=== PATIENT | male | born 1955 | race Caucasian/White ===

== ENCOUNTER 2016-12-18 07:37 | Observation (INO) | payer MEDICAID ==
[~2016-12-18 07:37] MED LIST: Buffered Lidocaine 1% SYRIN* 5 ML/SYR SYRINGE INTRADERM ONE; Buffered Lidocaine 1% SYRIN* 5 ML/SYR SYRINGE ONE; Dexamethasone IV* 4 MG/ML 1 ML (4 MG) IV SLOW PU ONE; Dexamethasone IV* 4 MG/ML 1 ML (4 MG) ONE; Famotidine IV* 10 MG/ML 2 ML (20 mg) IV ONE; Famotidine IV* 10 MG/ML 2 ML (20 mg) ONE; ceFAZolin 2 GM PREMIX(*) 2 GM/50 ML BAG IVPB ONE
[2016-12-18] MEDS ORDERED: Lidocain 1% EPI 1:100,000 * 30 ML MDV ONE (10:32)
[2016-12-18] MEDS ORDERED: Bacitracin IV* 50,000 UNITS INJ ONE (10:33)
[2016-12-18] MEDS ORDERED: Thrombin 5,000 UNITS* 1 APPLIC KIT - topical use - TOPICAL ONE (10:33)
[2016-12-18] MEDS ORDERED: KETAMINE HCL* 50 MG/ML 10 ML VIAL ONE (10:43)
[2016-12-18] MEDS ORDERED: Lidocaine 1% INJ* 10 MG/ML 30 ML SDV ONE (10:43)
[2016-12-18] MEDS ORDERED: Propofol* 10 MG/ML 20 ML BTL IV PUSH ONE (10:45)
[2016-12-18] MEDS ORDERED: Ondansetron INJ* 2 MG/ML VIAL ONE (10:45)
[2016-12-18] MEDS ORDERED: Midazolam* 1 MG/ML 2 ML VIAL (2 MG) ONE (10:45)
[2016-12-18] MEDS ORDERED: fentaNYL* 50 MCG/ML 2 ML VIAL (100 MCG VIAL) ONE ×5 (10:45→14:55)
[2016-12-18] MEDS ORDERED: Ketorolac INJ* 30 MG/ML 1 ML VIAL ONE (10:45)
[2016-12-18] MEDS ORDERED: Succinylcholine* 20 MG/ML 10 ML VIAL ONE (10:45)
[2016-12-18] MEDS ORDERED: DiMENhydriNATE IV* 50 MG/ML VIAL IV PUSH PRN (12:18)
[2016-12-18] MEDS ORDERED: HYDROmorphone* 1 MG/ML 1 ML SYR IV PRN (12:18)
--- NOTE | 2016-12-18 12:23 | RAD ---
HISTORY: Localization for anterior cervical discectomy and fusion COMPARISONS: MRI dated November 30, 2016 VIEWS: Single portable intraoperative view of the cervical spine performed for localization for spinal surgery FINDINGS: A single lateral view the comanche spine at 10:37 AM demonstrates a metallic needle within the intervertebral disc space at C4-C5, counting from C2. IMPRESSION: LIMITED PORTABLE VIEW OF THE CERVICAL SPINE FOR LOCALIZATION DURING SPINAL SURGERY
[2016-12-18] MEDS ORDERED: HYDROcodone/ACETAMIN 5-325 MG* 1 TAB PO PRN (12:58)
[2016-12-18] MEDS ORDERED: Ondansetron INJ* 2 MG/ML VIAL IV PRN (12:58)
[2016-12-18] MEDS ORDERED: Acetaminophen TAB* 325 MG PO PRN (12:58)
[2016-12-18] MEDS ORDERED: Mouth Piece, Nicotine* 1 EACH CARTRIDGE INH PRN (13:24)
[2016-12-18] MEDS ORDERED: Nicotine Inhaler* 10 MG AMP INH PRN (13:24)
[2016-12-18] MEDS ORDERED: Benzocaine/Menthol LOZ* 1 LOZENGE PO PRN (13:25)
[2016-12-18] MEDS: fentaNYL* 50 MCG/ML 2 ML VIAL (100 MCG VIAL) IV PRN ×5 (13:29→14:56)
[2016-12-18] MEDS ORDERED: Labetalol IV* 5 MG/ML 20 ML VIAL ONE (14:25)
[2016-12-18] MEDS: Labetalol IV* 5 MG/ML 20 ML VIAL IV PUSH PRN ×2 (14:27→15:04)
[2016-12-18] MEDS ORDERED: HYDROmorphone* 1 MG/ML 1 ML SYR ONE (15:41)
[2016-12-18] MEDS: Nicotine PATCH 21 MG/24 HR* PATCH TRANSDERM SCH (17:30)
[2016-12-18] MEDS: Nicotine GUM* 2 MG PO PRN (17:36)
[2016-12-18] MEDS ORDERED: risperiDONE TAB* 1 MG PO SCH (18:00)
[2016-12-18] MEDS ORDERED: SAW PALMETTO PO SCH (18:00)
[2016-12-18] MEDS ORDERED: Lisinopril TAB* 10 MG PO SCH (18:00)
[2016-12-18] MEDS ORDERED: Famotidine TAB* 20 MG PO SCH (18:00)
[2016-12-18] MEDS ORDERED: Metoprolol Succinate XL TAB* 100 MG PO SCH (18:00)
[2016-12-18] MEDS ORDERED: oxyCODONE TAB* 5 MG TAB PO PRN (19:01)
[2016-12-18] MEDS: Cyclobenzaprine TAB* 10 MG PO SCH (20:16)
[2016-12-18] MEDS ORDERED: Nicotine Patch Removal NOTE PATCH OFF SCH (21:00)
[2016-12-18] MEDS ORDERED: Gabapentin CAP(*) 300 MG PO SCH (21:00)
--- NOTE | 2016-12-19 00:06 | OP ---
OPERATIVE REPORT: DATE OF OPERATION: 12/18/16 DATE OF : 55 SURGEON: Dr. Rock Gamble. GOLD STAMPER: KOLBY Thornton ANESTHESIA: General. PRE-OP DIAGNOSIS: Herniated nucleus pulposus, C5-6 on the right. POST-OP DIAGNOSIS: Herniated nucleus pulposus, C5-6 on the right. OPERATIVE PROCEDURE: Anterior cervical diskectomy and fusion, C5-6 with anterior instrumentation. DESCRIPTION OF PROCEDURE: After satisfactory general anesthesia was obtained, the patient was place d on the operating table in a supine position with the head supported on a horseshoe headrest and th e neck slightly extended. The anterior aspect of the cervical spine was then clipped, prepped, and draped in a sterile manner for anterior cervical exposure and a skin incision began at the midline e xtending to the right side distance of 3 cm. This incision was infiltrated with 1% Xylocaine with e pinephrine after which it was turned down sharply to the subcutaneous tissues. A superior and infer iorly based subcutaneous flap was then fashioned and the platysma was also divided along the directi on of its fibers. A dissecting plane was developed between the sternocleidomastoid and strap muscle s and carried to the anterior aspect of the spine. An intraoperative x-ray was obtained verifying l ocalization of the C4-5 level. Additional inferior exposure was obtained until the C5-6 level was i dentified. There was noted to be prominent anterior spurring at both the C5 and C6 levels. After d rilling down the anterior spurs, the anterior two-thirds of disk material was removed using a combin ation of angled curettes, the drill and pituitary rongeurs. Russell distractor pins were then placed in the C5 and C6 vertebral bodies and gentle disk space distraction applied. The operating micros ope was then brought into the field and the remainder of the procedure was done under microscopic vi sualization. Projecting back posteriorly towards the right neural foramen was a spur, which was dec ompressed with the 1 and 2 mm Kerrison rongeurs. Upon palpating the foramen, a very significant lar ge piece of freely extruded disk material was also removed. The dissection was carried back until th e normal dura was encountered. At the conclusion of the decompression, a nerve hook got readily wit h both C6 nerve roots. The interspace was then prepared for receipt of a 9 mm PEEK cage filled with bony matrix and slightly countersunk. A Medtronic Zevo anterior cervical plate was then selected an d secured into position with an 11 mm self drilling screws into the C5 and C6 vertebral bodies. Due to the patient's body habitus, a post construct x-ray was not obtained. The wound was then thoroug hly irrigated and after assuring adequate hemostasis, a drain was placed in the prevertebral space a nd tunneled out towards the right side. The subcutaneous tissues were then reapproximated with 3-0 Vicryl suture and the skin closed with Steri-Strips. The estimated blood loss was less than 50 cc, and the final sponge, padding, and needle counts were correct. The patient was taken to the recovery room extubated and in stable condition. [id number]/[facility] #: [id number]
[2016-12-19] MEDS: Nicotine GUM* 2 MG PO PRN (05:44)
[2016-12-19] MEDS: Nicotine PATCH 21 MG/24 HR* PATCH TRANSDERM SCH (07:46)
--- NOTE | 2016-12-19 07:53 | PN ---
Progress Note - Progress Note SOAP: Subjective: [This is a 61 year old male s/p ACD F C5-6 for HNP, POD #1. He is eating and drinking without difficulty. He is ambulating independently. Pre-operative symptoms are improving. He denies headache, sore throat, nausea, chest pain and difficulty breathing. Pain is well controlled with PO medications. ] Objective: [ Vital Signs: Temp Pulse Resp BP Pulse Ox 98.0 F 80 17 150/82 97 12/19/16 03:49 12/19/16 03:49 12/19/16 05:44 12/19/16 03:49 12/19/16 03:49 General: Alert and oriented. No distress. Neuro: Motor and sensory intact. Incision: Intact with steri-strips in place. TUTU drain removed today. Extremities: Full ROM.] Assessment: [Satisfactory post-op course. ] Plan: [1. Discharge home today. 2. Discharge instructions discussed with the patient. ]
[2016-12-19 08:06] VITALS: BP 151/84
[2016-12-19] MEDS: Cyclobenzaprine TAB* 10 MG PO SCH (08:53)
[2016-12-19] MEDS ORDERED: amLODIPine TAB* 5 MG PO SCH (09:00)
--- NOTE | 2016-12-19 09:02 | RAD ---
Indication: Neck pain, postoperative fusion. CT of the cervical spine was obtained in the axial plane. Sagittal and coronal reconstructed images were obtained. The mastoid air cells are well aerated. No evidence of abnormal fluid is noted. The C1 ring is intact. Degenerative changes of the atlantoaxial joint are noted. There is fusion of C5 to C6 with an anterior plate and screws. Bone graft is in place. Spinal canal appears to be intact. Osteophyte is noted at C5-6, asymmetric towards the right resulting in right foraminal stenosis. At C6-7, mild bilateral uncovertebral joint hypertrophy is noted. There is straightening of the normal lordosis. No compression fracture. IMPRESSION: Fusion and anterior fixation of C5-6 with soft tissue swelling. Internal fixation with anterior plate and screws is noted. Spinal canal appears to be intact.
== END 2016-12-19 09:45 | disposition home or self-care (01) ==
LOC: OR 07:37 → SSU 12:59
PROVIDERS: ADMIT Neurological Surgery; ATTEND Neurological Surgery
PROC: 0RG10A0 Fusion of Cervical Vertebral Joint with Interbody Fusion Device, Anterior Approach, Anterior Column, Open Approach (ICD-10-PCS; 2016-12-18)
PROC: 0RB30ZZ Excision of Cervical Vertebral Disc, Open Approach (ICD-10-PCS; principal; 2016-12-18 09:15)
DX: M50.122 Cervical disc disorder at C5-C6 level with radiculopathy (principal); I10 Essential (primary) hypertension; F17.210 Nicotine dependence, cigarettes, uncomplicated; G40.909 Epilepsy, unspecified, not intractable, without status epilepticus; F32.9 Major depressive disorder, single episode, unspecified; F41.9 Anxiety disorder, unspecified; Z86.718 Personal history of other venous thrombosis and embolism
CPT/HCPCS: 72020; 72125; 87641; 96374; 96375; A9270-GY; G0378; J0330; J0690; J1100; J1170; J1885; J2001; J2250; J2405; J2704; J3010

== ENCOUNTER 2017-03-12 06:07 | Inpatient (IN) | payer MEDICAID, OTHER ==
[~2017-03-12 06:07] MED LIST changes: +Buffered Lidocaine 0.9% SYRIN* 5 ML/SYR SYRINGE INTRADERM ONE; -Buffered Lidocaine 1% SYRIN* 5 ML/SYR SYRINGE INTRADERM ONE; -Buffered Lidocaine 1% SYRIN* 5 ML/SYR SYRINGE ONE; -Dexamethasone IV* 4 MG/ML 1 ML (4 MG) IV SLOW PU ONE; -Dexamethasone IV* 4 MG/ML 1 ML (4 MG) ONE; -Famotidine IV* 10 MG/ML 2 ML (20 mg) IV ONE; -Famotidine IV* 10 MG/ML 2 ML (20 mg) ONE; -ceFAZolin 2 GM PREMIX(*) 2 GM/50 ML BAG IVPB ONE
[2017-03-12] MEDS ORDERED: Buffered Lidocaine 0.9% SYRIN* 5 ML/SYR SYRINGE ONE (06:13)
[2017-03-12] MEDS ORDERED: ceFAZolin 2 GM PREMIX (*) 50 ML IVPB ONE (06:13)
[2017-03-12] MEDS ORDERED: Thrombin 5,000 UNITS* 1 APPLIC KIT - topical use - TOPICAL ONE (07:07)
[2017-03-12] MEDS ORDERED: Lidocaine 1.5% EPI 1:200,000* 30 ML SDV ONE (07:07)
[2017-03-12] MEDS ORDERED: Bacitracin IV* 50,000 UNITS INJ ONE (07:07)
[2017-03-12] MEDS ORDERED: fentaNYL* 50 MCG/ML 2 ML VIAL (100 MCG VIAL) ONE (07:27)
[2017-03-12] MEDS ORDERED: Midazolam* 1 MG/ML 2 ML VIAL (2 MG) ONE (07:27)
[2017-03-12] MEDS ORDERED: Succinylcholine* 20 MG/ML 10 ML VIAL ONE (07:50)
[2017-03-12] MEDS ORDERED: Cisatracurium* 2 MG/ML MDV 5 ML ONE (07:50)
[2017-03-12] MEDS ORDERED: Ondansetron INJ* 2 MG/ML VIAL ONE (07:50)
[2017-03-12] MEDS ORDERED: Propofol* 10 MG/ML 20 ML BTL IV PUSH ONE (07:50)
[2017-03-12] MEDS ORDERED: Lidocaine 2% PF * 5 ML VIAL ONE (07:50)
[2017-03-12] MEDS ORDERED: Dexamethasone IV* 4 MG/ML 1 ML (4 MG) ONE (07:50)
[2017-03-12] MEDS ORDERED: Famotidine IV* 10 MG/ML 2 ML (20 mg) ONE (07:50)
[2017-03-12] MEDS ORDERED: HYDROmorphone* 1 MG/ML 1 ML SYR ONE (08:26)
[2017-03-12] MEDS ORDERED: Ondansetron INJ* 2 MG/ML VIAL IV PRN ×2 (08:36→09:24)
[2017-03-12] MEDS ORDERED: Acetaminophen TAB* 325 MG PO PRN ×2 (08:36→09:24)
[2017-03-12] MEDS ORDERED: PROCHLORPERAZINE INJ 5 MG/ML 2 ML VIAL IV PRN (08:36)
[2017-03-12] MEDS ORDERED: fentaNYL* 50 MCG/ML 2 ML VIAL (100 MCG VIAL) IV PRN (08:36)
[2017-03-12] MEDS ORDERED: HYDROmorphone* 1 MG/ML 1 ML SYR IV PRN (08:36)
[2017-03-12] MEDS ORDERED: HYDROcodone/ACETAMIN 5-325 MG* 1 TAB PO PRN (08:36)
[2017-03-12] MEDS ORDERED: Nicotine GUM* 2 MG PO PRN (09:44)
[2017-03-12] MEDS ORDERED: HYDROcodone/ACETAMIN 5-325 MG* 1 TAB ONE (10:04)
[2017-03-12] MEDS: HYDROcodone/ACETAMIN 5-325 MG* 1 TAB PO PRN ×2 (10:05→13:55)
--- NOTE | 2017-03-12 10:50 | RAD ---
HISTORY: Decompressive lumbar laminectomy COMPARISONS: None relevant VIEWS: 1 , portable intraoperative view of the lumbar spine for the 8:30 AM FINDINGS: A single portable crosstable intraoperative view of lumbar spine performed at 8:30 AM demonstrates a metallic probe opposite of L3-L4 counting from L5 as the last lumbar type vertebral body IMPRESSION: LIMITED PORTABLE VIEW OF THE SPINE FOR LOCALIZATION DURING SPINAL SURGERY
[2017-03-12] MEDS: oxyCODONE TAB* 5 MG TAB PO PRN ×2 (17:24→23:47)
[2017-03-12] MEDS: Lisinopril TAB* 10 MG PO SCH (17:25)
[2017-03-12] MEDS: Famotidine TAB* 20 MG PO SCH (17:25)
[2017-03-12] MEDS: amLODIPine TAB* 5 MG PO SCH (17:25)
[2017-03-12] MEDS: risperiDONE TAB* 1 MG PO SCH (17:25)
[2017-03-12] MEDS: Metoprolol Succinate XL TAB* 100 MG PO SCH (17:25)
[2017-03-12] MEDS: Cyclobenzaprine TAB* 10 MG PO SCH (20:33)
[2017-03-12] MEDS: SAW PALMETTO PO SCH (20:34)
[2017-03-12] MEDS ORDERED: Gabapentin CAP(*) 400 MG PO SCH (21:00)
[2017-03-12] MEDS ORDERED: Gabapentin CAP(*) 100 MG PO SCH ×2 (21:00)
[2017-03-13] MEDS: oxyCODONE TAB* 5 MG TAB PO PRN ×5 (03:51→19:59)
[2017-03-13] MEDS: Nicotine Patch Removal NOTE FOLLOW UP SCH (06:11)
--- NOTE | 2017-03-13 08:07 | PN ---
Progress Note - Progress Note Date of Service: 03/13/17 SOAP: Subjective: [This is a 61 year old male s/p decompressive lumbar laminectomy L3-4 and L4-5, POD #1. He complains of pain in the low back and persistent numbness of the feet since pre-op. Denies headache. He is eating without difficulty. He is ambulating with assistance of his cane. ] Objective: [ Vital Signs: Temp Pulse Resp BP Pulse Ox 98.2 F 82 16 138/64 99 03/13/17 03:22 03/13/17 03:22 03/13/17 05:51 03/13/17 03:22 03/13/17 03:22 General: Alert and oriented. No distress. Neuro: Motor and sensory intact. Incision: Intact with marlin, no infection. TUTU in place. Extremities: Full ROM TUTU drain output 03/12/17 03/12/17 03/12/17 10:00 11:18 13:54 Output, TUTU #1 50 70 70 03/12/17 03/12/17 03/13/17 18:00 22:00 02:15 Output, TUTU #1 50 35 50 03/13/17 06:00 Output, TUTU #1 30 ] Assessment: [Satisfactory post-op course. TUTU drain continues to collect significant fluid volume and will therefore remain in place for continued monitoring.] Plan: [1. Admit to inpatient. 2. Continue TUTU drain monitoring. 3. Continue pain management.]
[2017-03-13] MEDS: Cyclobenzaprine TAB* 10 MG PO SCH ×2 (08:49→20:12)
[2017-03-13] MEDS: Nicotine PATCH 21 MG/24 HR* PATCH TRANSDERM SCH (09:12)
[2017-03-13] MEDS ORDERED: NICOTINE GUM 2 MG PO PRN (09:16)
[2017-03-13] MEDS: NICOTINE GUM 4 MG PO PRN ×2 (09:38→15:50)
[2017-03-13] MEDS ORDERED: Gabapentin CAP(*) 300 MG PO ONE ×2 (10:00→18:30)
[2017-03-13] MEDS: Metoprolol Succinate XL TAB* 100 MG PO SCH (18:26)
[2017-03-13] MEDS: amLODIPine TAB* 5 MG PO SCH (18:26)
[2017-03-13] MEDS: Lisinopril TAB* 10 MG PO SCH (18:26)
[2017-03-13] MEDS: Famotidine TAB* 20 MG PO SCH (18:26)
[2017-03-13] MEDS: risperiDONE TAB* 1 MG PO SCH (18:26)
[2017-03-13] MEDS: SAW PALMETTO PO SCH (18:27)
[2017-03-13] MEDS ORDERED: Gabapentin CAP(*) 400 MG PO SCH (18:30)
[2017-03-14] MEDS: oxyCODONE TAB* 5 MG TAB PO PRN ×2 (00:05→08:24)
[2017-03-14] MEDS: Nicotine Patch Removal NOTE FOLLOW UP SCH (05:52)
[2017-03-14] MEDS: Nicotine PATCH 21 MG/24 HR* PATCH TRANSDERM SCH (08:21)
[2017-03-14 08:23] VITALS: BP 129/58
[2017-03-14] MEDS: NICOTINE GUM 4 MG PO PRN (08:24)
[2017-03-14] MEDS: Cyclobenzaprine TAB* 10 MG PO SCH (08:24)
--- NOTE | 2017-03-14 09:21 | PN ---
Progress Note - Progress Note Date of Service: 03/14/17 SOAP: Subjective: [S/p decompressive lumbar laminectomy L3-4 and L4-5, POD #2. Complains of low back soreness although pain well controlled with PO medication. Ambulating with cane. Denies headache.] Objective: [ Vital Signs: Temp Pulse Resp BP Pulse Ox 97.3 F 65 18 129/58 97 03/14/17 07:46 03/14/17 07:46 03/14/17 08:24 03/14/17 07:46 03/14/17 07:46 General: Alert and oriented. No distress Neuro: Motor and sensory intact. Extremities: Full ROM. TUTU drain output 03/12/17 03/12/17 03/12/17 10:00 11:18 13:54 Output, TUTU #1 50 70 70 03/12/17 03/12/17 03/13/17 18:00 22:00 02:15 Output, TUTU #1 50 35 50 03/13/17 03/13/17 03/13/17 06:00 10:00 14:00 Output, TUTU #1 30 30 15 03/13/17 03/13/17 03/14/17 18:00 22:00 02:00 Output, TUTU #1 10 10 10 03/14/17 03/14/17 06:00 08:27 Output, TUTU #1 30 15 ] Assessment: [Satisfactory post-op course at this time. TUTU drain continues to collect fluid. Further monitoring is necessary. ] Plan: [1. Possible discharge home this afternoon. 2. Continue pain management. 3. Encourage ambulation.]
== END 2017-03-14 11:00 | disposition home or self-care (01) | DRG 320 ==
LOC: OR 06:07 → SSU 08:08 → OBSVTOIN 03-13 08:08
PROVIDERS: ADMIT Neurological Surgery; ATTEND Neurological Surgery
PROC: 01NB0ZZ Release Lumbar Nerve, Open Approach (ICD-10-PCS; principal; 2017-03-13)
DX: M48.06 Spinal stenosis, lumbar region (principal); I10 Essential (primary) hypertension; Z88.2 Allergy status to sulfonamides; Z88.8 Allergy status to other drugs, medicaments and biological substances; F17.200 Nicotine dependence, unspecified, uncomplicated; B19.20 Unspecified viral hepatitis C without hepatic coma; G89.29 Other chronic pain; K21.9 Gastro-esophageal reflux disease without esophagitis; G43.909 Migraine, unspecified, not intractable, without status migrainosus; Z86.718 Personal history of other venous thrombosis and embolism
CPT/HCPCS: 72100; A9270-GY; G0378; J0330; J0690; J1100; J1170; J2250; J2405; J2704; J3010

== ENCOUNTER 2017-07-17 11:33 | Emergency (ER) | payer MEDICAID, OTHER ==
[2017-07-17 12:38] LABS: INR 3.04 (0.77-1.02)
[2017-07-17 12:39] VITALS: BP 142/84
--- NOTE | 2017-07-17 12:44 | ED ---
Delmi Moyer Gabriel, scribed for Sean Neri MD on 07/17/17 at 1159 . Throat Pain/Nasal Congestion - HPI Summary HPI Summary: This patient is a 61 year old M presenting to [facility] with a chief complaint of swelling under the right eye since this morning. The patient rates the pain 8/ 10 in severity. Patient reports pain under right eye. Patient denies fever, ear pain, pain when moving his eye, and yellow discharge of eye. Patient was diagnosed with a tooth abscess yesterday on the right side. He will be taken of his Warfrin and his tooth will be pulled by his dentist. His is currently on amoxicillin. - History of Current Complaint Chief Complaint: EDGeneral Time Seen by Provider: 07/17/17 11:50 Hx Obtained From: Patient Onset/Duration: Lasting Hours - since this morning, Still Present Severity: Mild Associated Signs And Symptoms: Positive: Negative - fever, ear pain, pain when moving his eye, yellow discharge of eye - Allergies/Home Medications Allergies/Adverse Reactions: Allergies Allergy/AdvReac Type Severity Reaction Status Date / Time Latex Allergy Intermediate Rash Verified 07/04/17 11:17 Carbamazepine [From Tegretol] Allergy Unknown FACIAL/EYES Verified 07/04/17 11: 17 SWELLING Sulfa Drugs Allergy Unknown CAN'T TAKE Verified 07/04/17 11:17 DUE TO LIVER ISSUES [place] Oil Allergy Swelling Verified 07/04/17 11:17 Of Face,Lips,& Throat [place] seeds AdvReac Severe Swelling Uncoded 07/04/17 11:17 Of Face,Lips,& Throat PMH/Surg Hx/FS Hx/Imm Hx Previously Healthy: No Endocrine/Hematology History: Reports: Hx Anticoagulant Therapy, Hx Anemia - warferin therapy Denies: Hx Diabetes Cardiovascular History: Reports: Hx Deep Vein Thrombosis, Hx Hypercholesterolemia, Hx Hypertension Denies: Hx Pacemaker/ICD Respiratory History: Reports: Hx Sleep Apnea - not diagnosed Denies: Hx Chronic Obstructive Pulmonary Disease (COPD) GI History: Reports: Hx Cirrhosis, Hx Gastroesophageal Reflux Disease History: Reports: Hx Kidney Stones - several times, last episode approx 3 yrs ago?, Other Problems/Disorders - HX OF STONES Denies: Hx Renal Disease Musculoskeletal History: Reports: Hx Arthritis - neck, arms, hands, legs, Other Musculoskeletal History - Chronic Pain Sensory History: Reports: Hx Cataracts - mild bi-lat, Hx Contacts or Glasses - wears glasses Denies: Hx Glaucoma, Hx Hearing Aid Opthamlomology History: Reports: Hx Cataracts - mild bi-lat, Hx Contacts or Glasses - wears glasses Denies: Hx Glaucoma Neurological History: Reports: Hx Headaches, Hx Migraine - once a month, uses relaxation techniques, medication, Hx Seizures - 10 years ago, no meds now, Other Neuro Impairments/Disorders - pt is not taking medication for anxiety/ depression Denies: Hx Dementia Psychiatric History: Reports: Hx Anxiety, Hx Depression Denies: Hx Panic Disorder - Cancer History Hx Chemotherapy: No - Surgical History Surgery Procedure, Year, and Place: Cholecystectomy; Bilateral Carpal Tunnel. BLOOD CLOT IN LEFT LEG. Back and Neck surgery [facility] Hx Anesthesia Reactions: No Infectious Disease History: No Infectious Disease History: Reports: Hx Hepatitis - hep c positive Denies: Traveled Outside the [place] in Last 30 Days - Family History Known Family History: Positive: Hypertension - Social History Occupation: Retired Lives: With Family Alcohol Use: None Substance Use Type: Reports: None Substance Use Comment - Amount & Last Used: morphine Hx Tobacco Use: Yes Smoking Status (MU): Former Smoker - recently quit Type: Cigarettes Amount Used/How Often: 0 Have You Smoked in the Last Year: Yes Review of Systems Negative: Fever Positive: Other - edema under right eye . Negative: Drainage - no yellow discharge Negative: Ear Ache Positive: Other - pain under right eye All Other Systems Reviewed And Are Negative: Yes Physical Exam - Summary Physical Exam Summary: Appearance: Well appearing, no pain distress Skin: warm, dry, reflects adequate perfusion Head/face: normal Eyes: EOMI, KATHY, there is a soft bullous under the right eye with some fluid in it. ENT: Palpable abscess around the first molar. There is erosion by the first upper molar and a fluctuant are. The central incisor is eroded with no fluctuant area Neck: supple, non-tender. Respiratory: CTA, breath sounds present Cardiovascular: RRR, pulses symmetrical Abdomen: non-tender, soft Bowel: present Musculoskeletal: normal, strength/ROM intact Neuro: normal, sensory motor intact, A&Ox3 Triage Information Reviewed: Yes Vital Signs On Initial Exam: Initial Vitals Temp Pulse Resp BP Pulse Ox 97.8 F 90 20 160/88 97 07/17/17 11:35 07/17/17 11:35 07/17/17 11:35 12/27/17 11:35 07/17/17 11:35 Vital Signs Reviewed: Yes Procedures - Incision and Drainage Site: buckle surface of the gingiva above the right tooth number 3 Anesthesia: Lidocaine - 1cc of 1% Instrument(s): Needle Packing: Gauze Diagnostics - Vital Signs Vital Signs Temp Pulse Resp BP Pulse Ox 07/17/17 11:35 97.8 F 90 20 160/88 97 - Laboratory Lab Results: Lab Results 07/17/17 Range/Units 12:17 INR (Anticoag Therapy) 3.04 H (0.77-1.02) Lab Statement: Any lab studies that have been ordered have been reviewed, and results considered in the medical decision making process. EENT Course/Dx - Course Course Of Treatment: fluxant area drained easily with a tiny hole. On coumadin. Bleeding controlled prior to d/c. On abx. INR 3.0 - Diagnoses Provider Diagnoses: Dental abscess Discharge - Discharge Plan Condition: Good Disposition: HOME Patient Education Materials: Dental Abscess (ED) Referrals: Michael Hurst MD [Primary Care Provider] - Additional Instructions: See your dentist to reevaluate and possibly remove tooth. Return with fever, uncontrolled bleeding, increased swelling or other concerns. Rinse mouth with saline several times today. Pus may continue to come out. Continue antibiotic. The documentation as recorded by the Delmi hawthorne Gabriel accurately reflects the service I personally performed and the decisions made by , Sean Neri MD.
== END 2017-07-17 12:38 | disposition home or self-care (01) ==
LOC: ED 11:33
DX: K04.7 Periapical abscess without sinus (principal); Z87.891 Personal history of nicotine dependence; R60.1 Generalized edema
CPT/HCPCS: 36415; 85610; 99281

== ENCOUNTER 2018-03-13 17:41 | Emergency (ER) | payer MEDICAID ==
--- NOTE | 2018-03-13 17:59 | ED ---
Lower Extremity - HPI Summary HPI Summary: 62 y/o male presents to the ED c/o cut @ [facility] 2 days ago, cut on the pt's wheelchair. Since then the area has become red, swollen (worsening) and is secreting clear fluid. The area is severely painful (10/10) and extremely sensitive to touch. Pt is currently on chemo. PMHx macular degeneration, pancreatic CA (October 2017). - History of Current Complaint Chief Complaint: EDExtremityLower Stated Complaint: POSSIBLE INFECTION LT LEG Hx Obtained From: Patient Onset of Pain: Post Accident Onset/Duration: Days Pain Intensity: 10 Pain Scale Used: 0-10 Numeric Timing: Constant Associated Signs And Symptoms: Positive: Redness, Other - pain, clear discharge Aggravating Factor(s): Other - touch Alleviating Factor(s): Nothing - Allergies/Home Medications Allergies/Adverse Reactions: Allergies Allergy/AdvReac Type Severity Reaction Status Date / Time carbamazepine Allergy Severe Swelling Verified 03/13/18 17:54 Of Face,Lips,& Throat sunflower oil Allergy Severe Swelling Verified 03/13/18 17:54 Of Face,Lips,& Throat latex Allergy Intermediate Rash Verified 03/13/18 17:54 Sulfa (Sulfonamide AdvReac Mild See Comment Verified 03/13/18 17:54 Antibiotics) [place] seeds AdvReac Severe Swelling Uncoded 01/02/18 10:47 Of Face,Lips,& Throat Home Medications: Home Medications Gabapentin CAP(*) [Neurontin 300 CAP(*)] 600 mg PO TID 03/13/18 [History Confirmed 03/13/18] amLODIPine TAB* [Norvasc 5 mg TAB*] 10 mg PO DAILY 03/13/18 [History Confirmed 03/13/18] PMH/Surg Hx/FS Hx/Imm Hx Previously Healthy: No Endocrine/Hematology History: Reports: Hx Anticoagulant Therapy, Hx Diabetes, Hx Anemia - warferin therapy Cardiovascular History: Reports: Hx Deep Vein Thrombosis, Hx Hypercholesterolemia, Hx Hypertension, Other Cardiovascular Problems/Disorders - on coumadin Denies: Hx Pacemaker/ICD Respiratory History: Reports: Hx Sleep Apnea - not diagnosed Denies: Hx Chronic Obstructive Pulmonary Disease (COPD) GI History: Reports: Hx Cirrhosis, Hx Gastroesophageal Reflux Disease History: Reports: Hx Kidney Stones - several times, last episode approx 3 yrs ago?, Other Problems/Disorders - HX OF STONES Denies: Hx Renal Disease Musculoskeletal History: Reports: Hx Arthritis - neck, arms, hands, legs, Other Musculoskeletal History - Chronic Pain Sensory History: Reports: Hx Cataracts - mild bi-lat, Hx Contacts or Glasses - wears glasses Denies: Hx Glaucoma, Hx Hearing Aid Opthamlomology History: Reports: Hx Cataracts - mild bi-lat, Hx Contacts or Glasses - wears glasses Denies: Hx Glaucoma Neurological History: Reports: Hx Headaches, Hx Migraine - once a month, uses relaxation techniques, medication, Hx Seizures - 10 years ago, no meds now, Other Neuro Impairments/Disorders - pt is not taking medication for anxiety/ depression Denies: Hx Dementia Psychiatric History: Reports: Hx Anxiety, Hx Depression Denies: Hx Panic Disorder - Cancer History Cancer Type, Location and Year: October 2017 - dx w/ pancreatic cancer w/ liver mets Hx Chemotherapy: Yes - will start soon - Surgical History Surgery Procedure, Year, and Place: Cholecystectomy; Bilateral Carpal Tunnel. BLOOD CLOT IN LEFT LEG. Back and Neck surgery [facility]. 2018 dental extraction. october 2017 - liver and pancreas biopsies Hx Anesthesia Reactions: No Infectious Disease History: Yes Infectious Disease History: Reports: Hx Hepatitis - hep c positive Denies: Traveled Outside the [place] in Last 30 Days - Family History Known Family History: Positive: Hypertension - Social History Alcohol Use: None Hx Substance Use: No Substance Use Type: Reports: None Substance Use Comment - Amount & Last Used: medical marijuana Hx Tobacco Use: Yes Smoking Status (MU): Former Smoker Type: Cigarettes Amount Used/How Often: 10 cig per day Have You Smoked in the Last Year: Yes Review of Systems Constitutional: Negative Eyes: Negative ENT: Negative Cardiovascular: Negative Respiratory: Negative Gastrointestinal: Negative Genitourinary: Negative Musculoskeletal: Negative Positive: Other - abrasion @ LLE - area of redness, swelling, secreting clear fluid, painful Neurological: Negative Psychological: Normal All Other Systems Reviewed And Are Negative: No Physical Exam - Summary Physical Exam Summary: Appearance: Alert, conversive, nontoxic appearing. Reeks of smoke. Skin: At LLE - swollen, small abrasion to L lower lateral leg with surrounding hematoma. It is draining and weeping clear fluid. The patient does not allow me to touch the area, secondary to pain. HEENT: EOMI, PERRL, dry mucous membranes Neck: No masses on the neck, supple Respiratory: Clear to auscultation, breath sounds present, no rales, no rhonchi , no wheezes Cardiovascular: RRR, pulses are symmetrical in both lower and upper extremities Abdomen: Soft, non-tender Bowel Sounds: Present Musculoskeletal: No CVA tenderness, no obvious deformity, moving all extremities in a grossly normal manner Neurological: A&Ox3, CN II-XII Intact, moving all extremities symmetrically Psychiatric: Normal affect and mood Triage Information Reviewed: Yes Vital Signs On Initial Exam: Initial Vitals Temp Pulse Resp BP Pulse Ox 98 F 90 20 151/79 98 03/13/18 17:48 03/13/18 17:48 03/13/18 17:48 03/13/18 17:48 03/13/18 17:48 Vital Signs Reviewed: Yes Diagnostics - Vital Signs Vital Signs Temp Pulse Resp BP Pulse Ox 03/13/18 17:48 98 F 90 20 151/79 98 - Laboratory Result Diagrams: 03/13/18 18:34 03/13/18 18:34 Lab Statement: Any lab studies that have been ordered have been reviewed, and results considered in the medical decision making process. - Radiology LE XR Xray Interpretation: No Acute Changes - No fractures, no gas in tissues Radiology Interpretation Completed By: ED Physician Re-Evaluation - Re-Evaluation 1 Re-Evaluation Time: 19:50 Comment: discuss plan to d/c 2 Re-Evaluation Time: 19:58 Comment: Re-exam L leg - no tenderness to L calf. Warm to palpation. Weeping. Lower Extremity Course/Dx - Course Assessment/Plan: 62 y/o male with abrasion @ LLE with redness, clear discharge and painful. Cut on wheelchair. XR shows no fracture, no gas in tissues. Pt will be given supplies to dress up wound. Instructed to f/u with PCP saturday, call for appt tomorrow. Pt will be d/c home. - Diagnoses Provider Diagnoses: Cellulitis, Contusion of leg Discharge - Sign-Out/Discharge Documenting (check all that apply): Patient Departure - Discharge Plan Condition: Stable Disposition: HOME Prescriptions: Cephalexin CAP* [Keflex CAP*] 500 mg PO TID #21 cap Patient Education Materials: Cellulitis (ED), Contusion in Adults (ED) Referrals: Michael Hurst MD [Primary Care Provider] - Additional Instructions: Please call your doctor tomorrow for a follow up appt on Saturday at the lastest. You have been prescribed keflex which is an antibiotic. ALL antibiotics raise your INR. Keflex is one of the more benign antibiotics. It is still imperative that you have your INR rechecked on Saturday. return if worse or any new symptoms. Elevate your leg to help decrease swelling. - Attestation Statements Document Initiated by Scribe: Yes Documenting Scribe: Kirill Alatorre Provider For Whom Scribe is Documenting (Include Credential): Bethanie Paulson MD Scribe Attestation: Kirill Moyer, scribed for Bethanie Paulson MD on 03/13/18 at 2032.
[2018-03-13] MEDS ORDERED: HYDROmorphone INJ* 2 MG/ML CARPUJECT SYRINGE IV SLOW PU ONE ×2 (18:16→19:47)
[2018-03-13] MEDS ORDERED: NS 0.9% 1000 ML* 1,000 ML IV ONE (18:17)
[2018-03-13 18:46] LABS: Hematocrit 37 % (42-52); Hemoglobin 12.7 g/dl (14.0-18.0); Mean Corpuscular HGB Conc 35 g/dl (31-36); Mean Corpuscular Hemoglobin 34 pg (27-31); Mean Corpuscular Volume 97 fL (80-94); Red Blood Count 3.79 10^6/ul (4.00-5.40); Red Cell Distribution Width 17 % (10.5-15); White Blood Count 4.1 10^3/ul (3.5-10.8)
[2018-03-13 18:59] LABS: EGFR Non-African American 122.3 (>60)
[2018-03-13 19:09] LABS: ABS Basophils 0 10^3/ul (0-0.2); ABS Eosinophils 0.1 10^3/ul (0-0.6); ABS Monocytes 0.5 10^3/ul (0-0.8); ABS Neutrophils 1.7 10^3/ul (1.5-7.7); ABS Nucleated RBC 0 10^3/ul; Eosinophil % 1.2 % (0-6); Lymphocyte % 47.1 % (25-47); Nucleated Red Blood Cells % 0.6; Platelet Count 72 10^3/ul (150-450)
[2018-03-13 19:38] VITALS: BP 185/87
[2018-03-13] MEDS ORDERED: cefTRIAXone(*) 1 GM in NS 0.9% 50 ML* 50 ML IVPB ONE (19:48)
[2018-03-13 20:11] LABS: INR 2.31 (0.77-1.02)
--- NOTE | 2018-03-14 07:41 | RAD ---
INDICATION: Left leg injury. Infection. COMPARISON: None TECHNIQUE: AP and lateral views were obtained. FINDINGS: There is no acute fracture. There is moderate dependent edema soft tissues are otherwise normal. IMPRESSION: NO ACUTE BONY FINDINGS. R0
== END 2018-03-13 21:06 | disposition home or self-care (01) ==
LOC: ED 17:41
DX: L03.116 Cellulitis of left lower limb (principal); S80.10XA Contusion of unspecified lower leg, initial encounter; Z79.01 Long term (current) use of anticoagulants; E11.9 Type 2 diabetes mellitus without complications
CPT/HCPCS: 36415; 80053; 83605; 85025; 85610; 96374; 96375; 99283; J0696; J1170

== ENCOUNTER 2018-04-19 08:23 | Emergency (ER) | payer MEDICAID, OTHER ==
--- NOTE | 2018-04-19 08:37 | ED ---
HPI Chest Pain - HPI Summary HPI Summary: This patient is a 62 year old M presenting to [facility] with a chief complaint of left lower lateral chest pain after bending over a few days ago and pain has worsened today. Pain is rated 9/10 in severity. Pain worsened by coughing and bending over. Patient denies nausea, vomiting, diarrhea, fever and chills. 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 Patients last CT scan two weeks ago; last chemotherapy was on 04/10/18. Patient is seen by Dr. Chambers. - History of Current Complaint Chief Complaint: EDChestWallPain Time Seen by Provider: 04/19/18 08:28 Hx Obtained From: Patient Onset/Duration: Started Days Ago, Worse Since - today Timing: Constant Pain Intensity: 9 Pain Scale Used: 0-10 Numeric Chest Pain Location: Left Lateral Chest Pain Radiates: No Aggravating Factor(s): Movement, Deep Breaths Alleviating Factor(s): Nothing Associated Signs and Symptoms: Positive: Negative - Additional Pertinent History Primary Care Physician: [id number] - Allergy/Home Medications Allergies/Adverse Reactions: Allergies Allergy/AdvReac Type Severity Reaction Status Date / Time carbamazepine Allergy Severe Swelling Verified 04/19/18 10:47 Of Face,Lips,& Throat sunflower oil Allergy Severe Swelling Verified 04/19/18 10:47 Of Face,Lips,& Throat latex Allergy Intermediate Rash Verified 04/19/18 10:47 Adhesive Tape Allergy Rash Verified 04/19/18 10:47 morphine [From Embeda] Allergy Swelling Verified 04/19/18 10:47 naltrexone [From Embeda] Allergy Swelling Verified 04/19/18 10:47 Sulfa (Sulfonamide AdvReac Mild See Comment Verified 04/19/18 10:47 Antibiotics) [place] seeds AdvReac Severe Swelling Uncoded 01/02/18 10:47 Of Face,Lips,& Throat PMH/Surg Hx/FS Hx/Imm Hx Endocrine/Hematology History: Reports: Hx Anticoagulant Therapy, Hx Diabetes, Hx Anemia - warfarin therapy Cardiovascular History: Reports: Hx Deep Vein Thrombosis, Hx Hypercholesterolemia, Hx Hypertension, Other Cardiovascular Problems/Disorders - on coumadin Denies: Hx Pacemaker/ICD Respiratory History: Reports: Hx Sleep Apnea - not diagnosed Denies: Hx Chronic Obstructive Pulmonary Disease (COPD) GI History: Reports: Hx Cirrhosis, Hx Gastroesophageal Reflux Disease History: Reports: Hx Kidney Stones - several times, last episode approx 3 yrs ago?, Other Problems/Disorders - HX OF STONES Denies: Hx Renal Disease Musculoskeletal History: Reports: Hx Arthritis - neck, arms, hands, legs, Other Musculoskeletal History - Chronic Pain Sensory History: Reports: Hx Cataracts - mild bi-lat, Hx Contacts or Glasses - wears glasses Denies: Hx Glaucoma, Hx Hearing Aid Opthamlomology History: Reports: Hx Cataracts - mild bi-lat, Hx Contacts or Glasses - wears glasses Denies: Hx Glaucoma Neurological History: Reports: Hx Headaches, Hx Migraine - once a month, uses relaxation techniques, medication, Hx Seizures - 10 years ago, no meds now, Other Neuro Impairments/Disorders - pt is not taking medication for anxiety/ depression Denies: Hx Dementia Psychiatric History: Reports: Hx Anxiety, Hx Depression Denies: Hx Panic Disorder - Cancer History Cancer Type, Location and Year: October 2017 - dx w/ pancreatic cancer w/ liver mets Hx Chemotherapy: Yes - started recently - Surgical History Surgery Procedure, Year, and Place: Cholecystectomy; Bilateral Carpal Tunnel. BLOOD CLOT IN LEFT LEG. Back and Neck surgery [facility] [place]. 2018 dental extraction. october 2017 - liver and pancreas biopsies Hx Anesthesia Reactions: No Infectious Disease History: No Infectious Disease History: Reports: Hx Hepatitis - hep c positive Denies: Traveled Outside the [place] in Last 30 Days - Family History Known Family History: Positive: Hypertension - Social History Alcohol Use: None Hx Substance Use: No Substance Use Type: Reports: None Substance Use Comment - Amount & Last Used: medical marijuana Hx Tobacco Use: Yes Smoking Status (MU): Former Smoker Type: Cigarettes Amount Used/How Often: 10 cig per day Have You Smoked in the Last Year: Yes Review of Systems Negative: Fever, Chills Positive: Chest Pain Positive: Cough Negative: Abdominal Pain, Vomiting, Diarrhea, Nausea All Other Systems Reviewed And Are Negative: Yes Physical Exam - Summary Physical Exam Summary: VITAL SIGNS: Reviewed. GENERAL: Patient is a well-developed and nourished male who is lying comfortable in the stretcher. Patient is not in any acute respiratory distress. HEAD AND FACE: No signs of trauma. No ecchymosis, hematomas or skull depressions. No sinus tenderness. EYES: PERRLA, EOMI x 2, No injected conjunctiva, no nystagmus. EARS: Hearing grossly intact. Ear canals and tympanic membranes are within normal limits. MOUTH: Oropharynx within normal limits. NECK: Supple, trachea is midline, no adenopathy, no JVD, no carotid bruit, no c- spine tenderness, neck with full ROM. CHEST: Symmetric, no tenderness at palpation LUNGS: Clear to auscultation bilaterally. No wheezing or crackles. CVS: Regular rate and rhythm, S1 and S2 present, no murmurs or gallops appreciated. ABDOMEN: Soft, LUQ tenderness. No signs of distention. No rebound no guarding, and no masses palpated. Bowel sounds are normal. EXTREMITIES: FROM in all major joints, no edema, no cyanosis or clubbing. NEURO: Alert and oriented x 3. No acute neurological deficits. Speech is normal and follows commands. SKIN: Dry and warm Triage Information Reviewed: Yes Vital Signs On Initial Exam: Initial Vitals Temp Pulse Resp BP Pulse Ox 97.0 F 62 14 142/68 96 04/19/18 08:25 04/19/18 08:25 04/19/18 08:25 04/19/18 08:25 04/19/18 08:25 Vital Signs Reviewed: Yes Diagnostics - Vital Signs Vital Signs Temp Pulse Resp BP Pulse Ox 04/19/18 08:25 97.0 F 62 14 142/68 96 - Laboratory Result Diagrams: 04/19/18 08:57 04/19/18 08:57 Lab Statement: Any lab studies that have been ordered have been reviewed, and results considered in the medical decision making process. - Radiology CXR w/ Ribs Radiology Interpretation Completed By: Radiologist - NO DISPLACED RIB FRACTURE OR PNEUMOTHORAX. ED Physician has reviewed this report. - CT A/P CT CT Interpretation Completed By: Radiologist - 1. MULTIPLE DIVERTICULA OF THE BLADDER. 2. ATHEROSCLEROSIS. 3. STABLE LOW-ATTENUATION LESION OF THE UNCINATE PROCESS OF THE PANCREAS. 4. THERE HAS BEEN MILD INTERVAL ENLARGEMENT OF A PORTACAVAL LYMPH NODE. 5. NO ACUTE NONCONTRAST CT PATHOLOGY OF THE ABDOMEN AND PELVIS. ED Physician has reviewed this report. - EKG 0844 Cardiac Rate: Bradycardia - 58 BPM EKG Rhythm: Sinus Rhythm EKG Interpretation: No ST elevations, Q wave in III Chest Pain Course/Dx - Course Assessment/Plan: This patient is a 62 year old M presenting to [facility] with a chief complaint of left lower lateral chest pain after bending over a few days ago and pain has worsened today. Pain is rated 9/10 in severity. Pain worsened by coughing and bending over. Patient denies nausea, vomiting, diarrhea, fever and chills. 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 Patients last CT scan two weeks ago; last chemotherapy was on 04/10/18. Patient is seen by Dr. Chambers. In the physical exam we found that the pain is actually in the left upper quadrant and of the pancreas area and may be some tenderness in the left rib cage area. There is no chest pain. And there is no chest tenderness. Blood test results shows a wbcs of 1.9, hemoglobin 12.4, hematocrit 37, platelets 100, neutrophils of 44.7 and absolute neutrophils of 0.9. INR 1.93, PTT of 79.8, glucose 132, AST 69 AST 113 and alkaline phosphatase of 336. Total protein is 5.7. Ribs and chest x-ray impression: No displaced rib fracture or pneumothorax. Abdominopelvic CT impression: Multiple diverticula of the gallbladder. Atherosclerosis, stable low attenuation lesion of the uncinate process of the pancreas. No acute contrast CT pathology of the abdomen and pelvis. In the ED course the patient was given MS Contin 30 mg by mouth since the patient reports that he did not take his usual medications and the pain was 9 out of 10. At this time I review all the blood work, chest x-ray , rib x-ray and abdominal pelvic CT with Dr. Chambers who is the patients oncologist and he recommends for the patient to be discharged home with follow- up with his office. At this point, since the patient is feeling slightly better , there is no abnormal blood work, Pelvic CT shows no acute intra-abdominal pathology and the x-ray of the ribs and not having any fracture dislocations, I will send the patient home with follow-up with Dr. Chambers and the primary care physician. I discussed all the findings and test results with the patient. Patient was instructed to return to the emergency room immediately if any of the symptoms return or worsens. Plan of care was discussed with the patient and understands and agrees. All questions were answered at patient satisfaction. There were no further complaints or concerns. Lung exam before discharge: CTA B /L. Good air exchange. No wheezing or crackles heard. CVS: S1 and S2 present. No murmurs appreciated. Patient is alert and oriented x 3. Patient is hemodynamically stable. Patient will be discharged home with follow up PCP in the next 2-3 days - Chest Pain Differential Diagnosis/HQI/PQRI: Acute ID, ACS, Angina, CHF, Chest Wall, GI Disease, Lower Respiratory Infection, Other: - Acute pancreatitis, acute diverticulitis, colitis, - Diagnoses Provider Diagnoses: Intermittent left upper quadrant abdominal pain, Rib pain - Provider Notifications Discussed Care Of Patient With: Tristan Chambers - oncology Time Discussed With Above Provider: 11:45 Instructed by Provider To: Other - Has reviewed CT scan and bloodwork and is comfortable with discharge Discharge - Sign-Out/Discharge Documenting (check all that apply): Patient Departure - discharge - Discharge Plan Condition: Stable Disposition: HOME Patient Education Materials: Pancreatic Cancer (DC), Chest Wall Pain (ED) Referrals: Michael Hurst MD [Primary Care Provider] - 2 Days Tristan Chambers MD [Medical Doctor] - Additional Instructions: RETURN TO THE EMERGENCY DEPARTMENT FOR CHANGING OR WORSENING SYMPTOMS. - Billing Disposition and Condition Condition: STABLE Disposition: Home - Attestation Statements Document Initiated by Jasviribmerrill: Yes Documenting Scribe: Tea Bedoya Provider For Whom Marilee is Documenting (Include Credential): Ar Baptiste MD Scribe Attestation: ITea, scribed for Ar Baptiste MD on 04/19/18 at 1837. Scribe Documentation Reviewed: Yes Provider Attestation: The documentation as recorded by the Tea hawthorne accurately reflects the service I personally performed and the decisions made by me, Ar Baptiste MD
[2018-04-19 09:07] LABS: Hematocrit 37 % (42-52); Hemoglobin 12.4 g/dl (14.0-18.0); Mean Corpuscular HGB Conc 33 g/dl (31-36); Mean Corpuscular Hemoglobin 33 pg (27-31); Mean Corpuscular Volume 98 fL (80-94); Mean Platelet Volume 8.1 um3 (7.4-10.4); Platelet Count 100 10^3/ul (150-450); Red Blood Count 3.77 10^6/ul (4.00-5.40); Red Cell Distribution Width 17 % (10.5-15); White Blood Count 1.9 10^3/ul (3.5-10.8)
[2018-04-19 09:25] LABS: EGFR Non-African American 139.2 (>60)
[2018-04-19 09:30] LABS: INR 1.93 (0.77-1.02)
--- NOTE | 2018-04-19 09:43 | RAD ---
HISTORY: left rib cage pain COMPARISONS: None VIEWS: 9 , Frontal view of the chest with frontal and oblique views of the left hemithorax FINDINGS: There is no displaced rib fracture or pneumothorax. The visualized lungs are clear. Right-sided chest port is noted. The patient is status post anterior cervical fusion. IMPRESSION: NO DISPLACED RIB FRACTURE OR PNEUMOTHORAX
[2018-04-19] MEDS ORDERED: Morphine TAB Extended Release (*) 30 MG TAB.ER PO ONE (09:47)
[2018-04-19 09:53] LABS: ABS Basophils 0 10^3/ul (0-0.2); ABS Eosinophils 0.1 10^3/ul (0-0.6); ABS Lymphocytes 0.8 10^3/ul (1.0-4.8); ABS Monocytes 0.1 10^3/ul (0-0.8); ABS Neutrophils 0.9 10^3/ul (1.5-7.7); ABS Nucleated RBC 0 10^3/ul; Eosinophil % 6.5 % (0-6); Nucleated Red Blood Cells % 0.1
--- NOTE | 2018-04-19 11:27 | RAD ---
CLINICAL HISTORY: LUQ pain COMPARISON: None TECHNIQUE: Multiple contiguous axial CT scans were obtained of the abdomen and pelvis, without intravenous contrast enhancement. Coronal and sagittal multiplanar reformations are submitted for review. Oral contrast was not administered. FINDINGS: Evaluation is limited due to the lack of intravenous contrast. This limits evaluation of the solid organs and vasculature. LUNG BASES: The lung bases are clear. LIVER: The hepatic lesions noted on the previous CT examination is not well-visualized on the current noncontrast CT examination. BILE DUCTS: There is no intrahepatic or extrahepatic biliary dilatation. GALLBLADDER: The gallbladder is not visualized. Surgical clips are noted in the gallbladder fossa. PANCREAS: There is a stable low-attenuation lesion of the uncinate process of the pancreas. SPLEEN: Normal in size and appearance. UPPER GI TRACT: Evaluation of the gastrointestinal tract is limited by incomplete gastric distention. The upper GI tract is unremarkable. SMALL BOWEL AND MESENTERY: The small bowel is normal in contour, course, and caliber. There is no obstruction or dilatation. COLON: The colon is normal in contour, course, caliber. There is no pericolonic inflammatory change. ADRENALS: Normal bilaterally. KIDNEYS: The kidneys are normal in shape, size, contour, and axis. There is no hydronephrosis or nephrolithiasis. BLADDER: There are multiple diverticula of the bladder, measuring up to 1 cm. PELVIC ORGANS: The prostate gland is normal. The seminal vesicles are symmetric. AORTA: There is calcific atherosclerotic disease of the abdominal aorta and its branches, without aneurysmal dilatation IVC: Unremarkable LYMPH NODES: There is a portacaval lymph node measuring 1.6 cm in short axis, slightly increased in size from the January 31, 2013 8 examination. ABDOMINAL WALL: There is no evidence for abdominal wall hernia. BONES AND SOFT TISSUES: There are mild diffuse degenerative changes. OTHER: None IMPRESSION: 1. MULTIPLE DIVERTICULA OF THE BLADDER. 2. ATHEROSCLEROSIS. 3. STABLE LOW-ATTENUATION LESION OF THE UNCINATE PROCESS OF THE PANCREAS. 4. THERE HAS BEEN MILD INTERVAL ENLARGEMENT OF A PORTACAVAL LYMPH NODE. 5. NO ACUTE NONCONTRAST CT PATHOLOGY OF THE ABDOMEN AND PELVIS.
[2018-04-19 12:21] VITALS: BP 148/76
== END 2018-04-19 12:19 | disposition home or self-care (01) ==
LOC: ED 08:23
DX: R07.81 Pleurodynia (principal); R10.12 Left upper quadrant pain; R00.1 Bradycardia, unspecified; N32.3 Diverticulum of bladder; K86.9 Disease of pancreas, unspecified; I70.0 Atherosclerosis of aorta; Z87.891 Personal history of nicotine dependence; Z88.8 Allergy status to other drugs, medicaments and biological substances; Z88.2 Allergy status to sulfonamides; Z88.5 Allergy status to narcotic agent
CPT/HCPCS: 36415; 74176; 80053; 82550; 82553; 83605; 83735; 83880; 84443; 84484; 85025; 85610; 85730; 93005; 99283; A9270-GY

== ENCOUNTER 2018-11-08 10:57 | Emergency (ER) | payer MEDICAID, OTHER ==
[2018-11-08] MEDS ORDERED: Ondansetron INJ* 2 MG/ML VIAL IV ONE (11:23)
[2018-11-08] MEDS ORDERED: NS 0.9% 1000 ML** 1,000 ML IV ONE (11:23)
[2018-11-08] MEDS ORDERED: HYDROmorphone INJ1* 1 MG/ML SYRINGE IV SLOW PU ONE ×2 (11:23→13:30)
--- NOTE | 2018-11-08 11:28 | ED ---
Back Pain - HPI Summary HPI Summary: This patient is a 62 year old male presenting to [facility] with a chief complaint of back pain since 2 hours [employer]. He describes the pain as a stabbing pain and rates it 9/10 in severity. He took 60 mg of morphine this AM and it has not helped to relieve the pain. He is currently undergoing chemotherapy radiation for pancreatic cancer and his last therapy was 9 days ago. His PCP was concerned that he was having urinary retention. The patient has a Hx of kidney stones and believes his pain is in the kidneys. - History of Current Complaint Chief Complaint: EDBackInjuryPain Stated Complaint: BACK PAIN PER PT Hx Obtained From: Patient Onset/Duration: Lasting Hours, Still Present Onset/Duration: Started Hours Ago Timing: Constant Back Pain Location: Is Discrete @ - Lower back Severity Currently: Severe Pain Intensity: 9 Pain Scale Used: 0-10 Numeric - Allergies/Home Medications Allergies/Adverse Reactions: Allergies Allergy/AdvReac Type Severity Reaction Status Date / Time carbamazepine Allergy Severe Swelling Verified 11/08/18 11:06 Of Face,Lips,& Throat sunflower oil Allergy Severe Swelling Verified 11/08/18 11:06 Of Face,Lips,& Throat latex Allergy Intermediate Rash Verified 11/08/18 11:06 Adhesive Tape Allergy Rash Verified 11/08/18 11:06 naltrexone [From Embeda] Allergy Swelling Verified 11/08/18 11:06 Sulfa (Sulfonamide AdvReac Mild See Comment Verified 11/08/18 11:06 Antibiotics) PMH/Surg Hx/FS Hx/Imm Hx Endocrine/Hematology History: Reports: Hx Anticoagulant Therapy, Hx Diabetes, Hx Anemia - warfarin therapy Cardiovascular History: Reports: Hx Deep Vein Thrombosis, Hx Hypercholesterolemia, Hx Hypertension, Other Cardiovascular Problems/Disorders - ON COUMADIN Denies: Hx Pacemaker/ICD Respiratory History: Reports: Hx Sleep Apnea - not diagnosed Denies: Hx Chronic Obstructive Pulmonary Disease (COPD) GI History: Reports: Hx Cirrhosis, Hx Gastroesophageal Reflux Disease, Other GI Disorders - PANCREATIC CANCER History: Reports: Hx Kidney Stones - several times, last episode approx 3 yrs ago?, Other Problems/Disorders - HX OF STONES Denies: Hx Renal Disease Musculoskeletal History: Reports: Hx Arthritis - neck, arms, hands, legs, Other Musculoskeletal History - Chronic Pain Sensory History: Reports: Hx Cataracts - mild bi-lat, Hx Contacts or Glasses - wears glasses Denies: Hx Glaucoma, Hx Hearing Aid Opthamlomology History: Reports: Hx Cataracts - mild bi-lat, Hx Contacts or Glasses - wears glasses Denies: Hx Glaucoma Neurological History: Reports: Hx Headaches, Hx Migraine - once a month, uses relaxation techniques, medication, Hx Seizures - 10 years ago, no meds now, Other Neuro Impairments/Disorders - pt is not taking medication for anxiety/ depression Denies: Hx Dementia Psychiatric History: Reports: Hx Anxiety, Hx Depression Denies: Hx Panic Disorder - Cancer History Cancer Type, Location and Year: October 2017 - dx w/ pancreatic cancer w/ liver mets Hx Chemotherapy: Yes - started recently - Surgical History Surgery Procedure, Year, and Place: Cholecystectomy; Bilateral Carpal Tunnel. BLOOD CLOT IN LEFT LEG. Back and Neck surgery [facility] [place]. 2018 dental extraction. october 2017 - liver and pancreas biopsies Hx Anesthesia Reactions: No Infectious Disease History: No Infectious Disease History: Reports: Hx Hepatitis - hep c positive Denies: Traveled Outside the [place] in Last 30 Days - Family History Known Family History: Positive: Hypertension - Social History Alcohol Use: None Hx Substance Use: No Substance Use Type: Reports: Marijuana Substance Use Comment - Amount & Last Used: medical marijuana Hx Tobacco Use: Yes Smoking Status (MU): Light Every Day Tobacco Smoker Type: Cigarettes Amount Used/How Often: 10 cig per day Have You Smoked in the Last Year: Yes Review of Systems Negative: Fever Positive: Other - Back pain All Other Systems Reviewed And Are Negative: Yes Physical Exam - Summary Physical Exam Summary: Appearance: The patient is well-nourished in no acute distress and in no acute pain. Skin: The skin is warm and dry and skin color reflects adequate perfusion. HEENT: The head is normocephalic and atraumatic. The pupils are equal and reactive. The conjunctivae are clear and without drainage. Nares are patent and without drainage. Mouth reveals moist mucous membranes and the throat is without erythema and exudate. The external ears are intact. The ear canals are patent and without drainage. The tympanic membranes are intact. Neck: The neck is supple with full range of motion and non-tender. There are no carotid bruits. There is no neck vein distension. Respiratory: Chest is non-tender. Lungs are clear to auscultation and breath sounds are symmetrical and equal. Cardiovascular: Heart is regular rate and rhythm. There is no murmur or rub auscultated. There is no peripheral edema and pulses are symmetrical and equal. Abdomen: The abdomen is soft and non-tender. There are normal bowel sounds heard in all four quadrants and there is no organomegaly palpated. Musculoskeletal: There is no back tenderness noted. Extremities are non-tender with full range of motion. There is good capillary refill. There is no peripheral edema or calf tenderness elicited. Neurological: Patient is alert and oriented to person, place and time. The patient has symmetrical motor strength in all four extremities. Cranial nerves are grossly intact. Deep tendon reflexes are symmetrical and equal in all four extremities. Psychiatric: The patient has an appropriate affect and does not exhibit any anxiety or depression. Triage Information Reviewed: Yes Vital Signs On Initial Exam: Initial Vitals Temp Pulse Resp BP Pulse Ox 97.4 F 72 18 163/85 98 11/08/18 11:01 11/08/18 11:01 11/08/18 11:01 11/08/18 11:01 11/08/18 11:01 Vital Signs Reviewed: Yes Diagnostics - Vital Signs Vital Signs Temp Pulse Resp BP Pulse Ox 11/08/18 11:01 97.4 F 72 18 163/85 98 - Laboratory Result Diagrams: 11/08/18 11:37 11/08/18 11:37 Lab Statement: Any lab studies that have been ordered have been reviewed, and results considered in the medical decision making process. - Ultrasound No standard instances Ultrasound Interpretation Completed By: ED Physician Summary of Ultrasound Findings: Bedside bladder U/S: 100 CCs of urine in the bladder. Re-Evaluation - Re-Evaluation First Eval Re-Evaluation Time: 14:22 Comment: Discussed results with patient. Back Pain Course/Dx - Course Course Of Treatment: Mr. Matias presents complaining of bilateral low back pain. He thinks it's in his kidneys and he has been having more difficulty urinating recently. He was recently started on Flomax by his PCP. He has a diagnosis of pancreatic adenocarcinoma and is currently being treated. On arrival he was placed on a monitor and the bladder scan was obtained which revealed about 100 cc in his bladder each time. Urinalysis was unremarkable as were the rest of his labs. He was nontoxic in appearance with stable vitals. I offered him CT scan of his back but he is due to have an MRI in a couple days and he preferred to defer. This may be a symptom of metastatic disease and could even be a pathological fracture. I think the likelihood of an epidural hematoma or abscess is unlikely and recommended close follow-up especially if he worsens in any way or develops any neurological symptoms. - Diagnoses Provider Diagnoses: Back pain Discharge - Sign-Out/Discharge Documenting (check all that apply): Patient Departure - Discharge Patient Received Moderate/Deep Sedation with Procedure: No - Discharge Plan Condition: Stable Disposition: HOME Patient Education Materials: Back Pain (ED) Referrals: [facility] [place] [facility]ERR[facility] [Outside] Additional Instructions: Return to ED with any new or worsening symptoms. Follow up with MRI scan next week. - Billing Disposition and Condition Condition: STABLE Disposition: Home - Attestation Statements Document Initiated by Marilee: Yes Documenting Jasviribe: Giles Alvarez Provider For Whom Marilee is Documenting (Include Credential): Rodolfo Ireland MD Scribe Attestation: Giles Moyer, scribed for Rodolfo Ireland MD on 11/08/18 at 1741. Scribe Documentation Reviewed: Yes Provider Attestation: The documentation as recorded by the Giles hawthorne accurately reflects the service I personally performed and the decisions made by , Rodolfo Ireland MD Status of Scribmerrill Document: Viewed
[2018-11-08 11:45] LABS: ABS Basophils 0 10^3/ul (0-0.2); ABS Eosinophils 0.1 10^3/ul (0-0.6); ABS Lymphocytes 1.6 10^3/ul (1.0-4.8); ABS Monocytes 0.5 10^3/ul (0-0.8); ABS Neutrophils 2.2 10^3/ul (1.5-7.7); ABS Nucleated RBC 0 10^3/ul; Eosinophil % 2.3 %; Hematocrit 38 % (36-46); Hemoglobin 12.9 g/dL (14.0-18.0); Lymphocyte % 36.5 %; Mean Corpuscular HGB Conc 34 g/dL (31-36); Mean Corpuscular Hemoglobin 32 pg (27-31); Mean Corpuscular Volume 94 fL (80-94); Mean Platelet Volume 7.6 fL (7.4-10.4); Nucleated Red Blood Cells % 0.1; Platelet Count 103 10^3/uL (150-450); Red Blood Count 4.04 10^6 /uL (4.18-5.48); Red Cell Distribution Width 18 % (10.5-15); White Blood Count 4.5 10^3/uL (3.5-10.8)
[2018-11-08 12:02] LABS: ALT 122 U/L (7-52); AST 56 U/L (13-39); Albumin 3.5 g/dL (3.2-5.2); Albumin/Globulin Ratio 1.5 (1-3); Alkaline Phosphatase 630 U/L (34-104); Anion Gap 7 mmol/L (2-11); BUN/Creatinine Ratio 30.1 (8-20); Blood Urea Nitrogen 22 mg/dL (6-24); C Reactive Protein 16.87 mg/L (<8.01); CO2 Carbon Dioxide 29 mmol/L (22-32); Chloride 102 mmol/L (101-111); EGFR African American 131.7 (>60); EGFR Non-African American 108.9 (>60); Globulin 2.3 g/dL (2-4); Glucose 155 mg/dL (70-100); Potassium 4.2 mmol/L (3.5-5.0); Sodium 138 mmol/L (135-145); Total Protein 5.8 g/dL (6.4-8.9)
[2018-11-08 14:00] LABS: Urine Appearance Clear; Urine Bilirubin Negative (Negative); Urine Blood Negative (Negative); Urine Color Yellow; Urine Glucose Negative (Negative); Urine Ketones Negative (Negative); Urine Nitrite Negative (Negative); Urine Protein Negative (Negative); Urine Specific Gravity 1.017 (1.010-1.030); Urine Urobilinogen Negative (Negative)
[2018-11-08 15:02] VITALS: BP 157/80
== END 2018-11-08 15:01 | disposition home or self-care (01) ==
LOC: ED 10:57
DX: M54.5 Low back pain (principal); F17.210 Nicotine dependence, cigarettes, uncomplicated; Z79.01 Long term (current) use of anticoagulants; E11.9 Type 2 diabetes mellitus without complications; D64.9 Anemia, unspecified; Z86.718 Personal history of other venous thrombosis and embolism; E78.00 Pure hypercholesterolemia, unspecified; K74.60 Unspecified cirrhosis of liver; Z87.442 Personal history of urinary calculi
CPT/HCPCS: 36415; 80053; 81003; 83605; 83690; 85025; 86140; 96361; 96374; 96375; 96376; 99283; J1170; J1642; J2405

== ENCOUNTER 2018-12-21 09:55 | Inpatient (IN) | payer SELFPAY ==
--- NOTE | 2018-12-21 10:26 | ED ---
Complex/Multi-Sys Presentation - HPI Summary HPI Summary: Patient is a 63 y/o M with Hx of stage 4 pancreatic cancer with metastases presents to ED via EMS with complaints of weakness, falls, AMS, VALDEZ, chest pain, "hand" pain, abdominal pain, back pain and buttocks pain. Son, who is present in the room, reports that the patient had experienced increased difficulty standing and multiple falls (5-6), even when he has assistance standing, since two days ago (12/19/18). Patient's son notes that the patient has Hx of falls, but states that they are not usually as frequent or as severe as they have been in the past two days. The son additionally notes that the patient has been "loopy" and saying nonsensical things and "random stuff at random moments" since 12/19/18, two days ago, as well. Patient's son gives an example of such instance, stating that when he and his neighbor were helping the patient into bed, the patient had randomly stated, "Give him the phone", even though no phone was involved during this event. In the room, patient makes note of chest pain, upper back pain, abdominal pain, and "hand" pain. Chest pain is rated 5/10 , VALDEZ and abdominal pain are rated 9/10. He denies vomiting but notes he is beginning to feel nauseous. No diarrhea is reported, patient states that he feels as if he is going to have a bowel movement soon. 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 They are still searching for a new manager nursing. Son lives with the patient. It is reported that the son has wanted to place the patient in a assisted but the patient has been resistant to this idea. Most recent imaging of the patient is reported to have been an MRI of the patient's back, a month ago. Patient is on Coumadin for chronic DVT at left leg for the past 6-7 years. Patient is scheduled for INR, most recent taken was three days ago, 12/18/18, and was reported to have been 10. No Hx of afib is endorsed. No bleeding reported, but patient is noted to have a large bruise at his right side. Son states that the patient has compression fractures. Patient was discontinued from chemotherapy in October,, son notes that there are plans to restart the patient on chemo soon. Patient takes morphine daily for pain management. He did not have morphine today. Oncologists are Dr. Chambers and Dr. Han. Patient is a full code. He has a port at his right chest. Patient had waffles for breakfast. FMHx of pancreatic cancer in mother. On triage, nothing is noted to aggravate or alleviate Sx. Home medications and allergies are reviewed. BP 149/64, o2 97, pulse 97. Allergies Allergy/AdvReac Type Severity Reaction Status Date / Time carbamazepine Allergy Severe Swelling Verified 12/21/18 10:16 Of Face,Lips,& Throat sunflower oil Allergy Severe Swelling Verified 12/21/18 10:16 Of Face,Lips,& Throat latex Allergy Intermediate Rash Verified 12/21/18 10:16 Adhesive Tape Allergy Rash Verified 12/21/18 10:16 naltrexone [From Embeda] Allergy Swelling Verified 12/21/18 10:16 Sulfa (Sulfonamide AdvReac Mild See Comment Verified 12/21/18 10:16 Antibiotics) - History Of Current Complaint Chief Complaint: EDWeakness Hx Obtained From: Patient, Family/Relocation Director - son Onset/Duration: Lasting Days - increased falls and AMS onset 12/19/18, Still Present Timing: Intermittent, Lasting:, Days - increased falls and AMS onset 12/19/18 Severity Currently: Severe Location: Pain At: - head, chest, hands, abdomen, back, and buttocks Character: Typical Headache Aggravating Factor(s): nothing Alleviating Factor(s): nothing Associated Signs And Symptoms: Positive: Weakness, Headache, Chest Pain, Nausea , Abdominal Pain, Back Pain, Other - POSITIVE - AMS, FALLS, "HAND" PAIN, BUTTOCKS PAIN. Negative: Vomiting, Diarrhea - Allergies/Home Medications Allergies/Adverse Reactions: Allergies Allergy/AdvReac Type Severity Reaction Status Date / Time carbamazepine Allergy Severe Swelling Verified 12/21/18 10:16 Of Face,Lips,& Throat sunflower oil Allergy Severe Swelling Verified 12/21/18 10:16 Of Face,Lips,& Throat latex Allergy Intermediate Rash Verified 12/21/18 10:16 Adhesive Tape Allergy Rash Verified 12/21/18 10:16 naltrexone [From Embeda] Allergy Swelling Verified 12/21/18 10:16 Sulfa (Sulfonamide AdvReac Mild See Comment Verified 12/21/18 10:16 Antibiotics) PMH/Surg Hx/FS Hx/Imm Hx Endocrine/Hematology History: Reports: Hx Anticoagulant Therapy, Hx Diabetes, Hx Anemia - warfarin therapy Cardiovascular History: Reports: Hx Deep Vein Thrombosis, Hx Hypercholesterolemia, Hx Hypertension, Other Cardiovascular Problems/Disorders - ON COUMADIN Denies: Hx Pacemaker/ICD Respiratory History: Reports: Hx Sleep Apnea - not diagnosed Denies: Hx Chronic Obstructive Pulmonary Disease (COPD) GI History: Reports: Hx Cirrhosis, Hx Gastroesophageal Reflux Disease, Other GI Disorders - PANCREATIC CANCER History: Reports: Hx Kidney Stones - several times, last episode approx 3 yrs ago?, Other Problems/Disorders - HX OF STONES Denies: Hx Renal Disease Musculoskeletal History: Reports: Hx Arthritis - neck, arms, hands, legs, Other Musculoskeletal History - Chronic Pain Sensory History: Reports: Hx Cataracts - mild bi-lat, Hx Contacts or Glasses - wears glasses Denies: Hx Glaucoma, Hx Hearing Aid Opthamlomology History: Reports: Hx Cataracts - mild bi-lat, Hx Contacts or Glasses - wears glasses Denies: Hx Glaucoma Neurological History: Reports: Hx Headaches, Hx Migraine - once a month, uses relaxation techniques, medication, Hx Seizures - 10 years ago, no meds now, Other Neuro Impairments/Disorders - pt is not taking medication for anxiety/ depression Denies: Hx Dementia Psychiatric History: Reports: Hx Anxiety, Hx Depression Denies: Hx Panic Disorder - Cancer History Cancer Type, Location and Year: October 2017 - dx w/ pancreatic cancer w/ liver mets Hx Chemotherapy: Yes - started recently - Surgical History Surgery Procedure, Year, and Place: Cholecystectomy; Bilateral Carpal Tunnel PT NEEDS TO BE SCHEDULED AT [facility]. BLOOD CLOT IN LEFT LEG NEEDS TO HAVE PORT ACCESSED. LSP Back and CSP surgery [facility] [place]. 2018 dental extraction. october 2017 - liver and pancreas biopsies Hx Anesthesia Reactions: No Infectious Disease History: No Infectious Disease History: Reports: Hx Hepatitis - hep c positive Denies: Traveled Outside the [place] in Last 30 Days - Family History Known Family History: Positive: Hypertension, Other - FMHX OF PANCREATIC CANCER , MOTHER - Social History Alcohol Use: None Hx Substance Use: No Substance Use Type: Reports: Marijuana Substance Use Comment - Amount & Last Used: prescribed Hx Tobacco Use: Yes Smoking Status (MU): Current Some Day Smoker Type: Cigarettes Amount Used/How Often: 10 cig per day Have You Smoked in the Last Year: Yes Review of Systems Positive: Chest Pain Positive: Abdominal Pain, Nausea. Negative: Vomiting, Diarrhea Musculoskeletal: Other - POSITIVE- FALLS, BACK, BUTTOCKS PAIN, "HAND" PAIN Neurological: Other - POSITIVE - AMS Positive: Headache, Weakness All Other Systems Reviewed And Are Negative: Yes Physical Exam - Summary Physical Exam Summary: Appearance: Ill-appearing, severe pain distress, well-nourished, pale, tearful, smells strongly of urine, unkempt, dry mucosa, port at right chest is noted. Skin: Warm, color reflects adequate perfusion, dry; patient has a bruise from mid abdomen that is 7 cm in diameter, extends from right mid abdomen to spine; it is purple in color Head: Normal Head/Face inspection, atraumatic Eyes: Conjunctiva clear ENT: Normal inspection Neck: Supple, no nodes, no JVD Respiratory: Lungs clear, normal breath sounds, no respiratory distress Cardio: RRR, No murmur, pulses normal, brisk capillary refill Abdomen: Soft, nontender Bowel sounds: Present Musculoskeletal: Strength Intact/ROM intact, no calf tenderness, left extremity with 2+ swelling, brawny changes right anterior tibia Psychological: Normal Neuro: A&O x3, CN II-XII intact, motor function 5/5, sensation intact, cerebellar normal, GCS 15 Triage Information Reviewed: Yes Vital Signs On Initial Exam: Initial Vitals Temp Pulse Resp BP Pulse Ox 97.5 F 94 16 149/63 95 12/21/18 10:07 12/21/18 10:07 12/21/18 10:07 12/21/18 10:07 12/21/18 10:07 Vital Signs Reviewed: Yes - [place] Coma Scale Best Eye Response: 4 - Spontaneous Best Motor Response: 6 - Obeys Commands Best Verbal Response: 5 - Oriented Coma Scale Total: 15 Diagnostics - Vital Signs Vital Signs Temp Pulse Resp BP Pulse Ox 12/21/18 10:07 97.5 F 94 16 149/63 95 - Laboratory Result Diagrams: 12/21/18 10:27 12/21/18 10:27 Lab Statement: Any lab studies that have been ordered have been reviewed, and results considered in the medical decision making process. - Radiology CHEST X-RAY Radiology Interpretation Completed By: Radiologist Summary of Radiographic Findings: CXR IMPRESSION: 1. Lung volumes appear small likely due to incomplete inspiration. 2. There is potentially a small left- sided pleural effusion. THIS REPORT WAS REVIEWED BY DR. BOSE. - CT BRAIN CT CT Interpretation Completed By: Radiologist Summary of CT Findings: BRAIN CT IMPRESSION: Normal CT of the brain. THIS REPORT WAS REVIEWED BY DR. BOSE. - EKG 1049 Cardiac Rate: NL - rate of 88 BPM EKG Rhythm: Sinus Rhythm ST Segment: Non-Specific Ectopy: None Summary of EKG Findings: EKG showed sinus rhythm with rate of 88 BPM, nml AV/ IV CT, nml QTc, borderline left axis deviation, borderline low coltage in extremity leds, non-specific T abnormalities in lateral leads, no acute changes , no STEMI. Dr. Bose has reviewed and interpreted this EKG. Re-Evaluation - Re-Evaluation First Eval Re-Evaluation Time: 11:18 Comment: Nurse Shari notifies Dr. Bose of patient's lactic acid of 2.2 Second Eval Re-Evaluation Time: 12:52 Comment: Results of labs and tests were discussed with the patient, patient and son are agreeable with admission. No incontinence, no fever, max temp 99 F. Complex Multi-Symp Course/Dx Assessment/Plan: Patient is a 63 y/o M with Hx of stage 4 pancreatic cancer with metastases presents to ED via EMS with complaints of weakness, falls, AMS, VALDEZ, chest pain, "hand" pain, abdominal pain, back pain and buttocks pain. Son, who is present in the room, reports that the patient had experienced increased difficulty standing and multiple falls (5-6), even when he has assistance standing, since two days ago (12/19/18). Patient's son notes that the patient has Hx of falls, but states that they are not usually as frequent or as severe as they have been in the past two days. The son additionally notes that the patient has been "loopy" and saying nonsensical things and "random stuff at random moments" since 12/19/18, two days ago, as well. In the room, patient makes note of chest pain, upper back pain, abdominal pain, and "hand" pain. Chest pain is rated 5/10, VALDEZ and abdominal pain are rated 9/10. He denies vomiting but notes he is beginning to feel nauseous. No diarrhea is reported, patient states that he feels as if he is going to have a bowel movement soon. 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 They are still searching for a new manager nursing. Son lives with the patient. It is reported that the son has wanted to place the patient in a assisted but the patient has been resistant to this idea. Most recent imaging of the patient is reported to have been an MRI of the patient's back, a month ago. Patient is on Coumadin for chronic DVT at left leg for the past 6-7 years. Patient is scheduled for INR, most recent taken was three days ago, , and was reported to have been 10. No Hx of afib is endorsed. No bleeding reported, but patient is noted to have a large bruise at his right side. Son states that the patient has compression fractures. Patient was discontinued from chemotherapy in October,, son notes that there are plans to restart the patient on chemo soon. Patient takes morphine daily for pain management. He did not have morphine today. Oncologists are Dr. Chambers and Dr. Han. Patient is a full code. On physical exam, patient is ill-appearing, severe pain distress, well-nourished, pale, tearful, smells strongly of urine, unkempt, dry mucosa, port at right chest is noted. Patient has a bruise from mid abdomen that is 7 cm in diameter, extends from right mid abdomen to spine; it is purple in color. Left extremity with 2+ swelling, brawny changes right anterior tibia. GCS 15. EKG showed sinus rhythm with rate of 88 BPM, nml AV/IV CT, nml QTc, borderline left axis deviation, borderline low coltage in extremity leds, non-specific T abnormalities in lateral leads, no acute changes, no STEMI. Dr. Bose has reviewed and interpreted this EKG. Labs showed RBC 3.6, Hgb 11, Hct 34, RDW 17 , absolute monos 1.1, INR 4.74, APTT 51.3, BUN 50, BUN/creatinine ratio 58.8, glucose 165, lactic acid 2.2, calcium 8.4, magnesium 1.8, AST 74, ALT 79, Alk phos 831, total creatine kinase 835, trop 0.03, CRP 199.3, total protein 5.1, albumin 2.7, TSH 0.4. UA is negative. During ED course, patient received moprhin 10 mg IV and fluids. CXR IMPRESSION: 1. Lung volumes appear small likely due to incomplete inspiration. 2. There is potentially a small left- sided pleural effusion. BRAIN CT IMPRESSION: Normal CT of the brain. Patient' s case was discussed with Dr. Carrera, Dr. Carrera accepts for admission. Results of labs and tests were discussed with the patient, patient and son are agreeable with admission. - Diagnoses Provider Diagnoses: Dehydration, Failure to thrive - Physician Notifications Discussed Care Of Patient With: Marianne Carrera Time Discussed With Above Provider: 12:51 Instructed by Provider To: Other - 1251 - Patient's case was discussed with Dr. Carrera, Dr. Carrera accepts for admission. - Critical Care Time Critical Care Time: 30-74 min - 30 minutes CCT Discharge - Sign-Out/Discharge Documenting (check all that apply): Patient Departure - ADMIT Patient Received Moderate/Deep Sedation with Procedure: No - Discharge Plan Condition: Good Disposition: ADMITTED TO [facility] - Attestation Statements Document Initiated by Scribe: Yes Documenting Scribe: LIYA MCKEON Provider For Whom Scribe is Documenting (Include Credential): KATHLEEN BOSE MD Scribe Attestation: LIYA Moyer, scribed for KATHLEEN BOSE MD on 12/21/18 at 8666.
[2018-12-21] MEDS ORDERED: Morphine 10 MG/ML VIAL (1 ml) IV ONE (10:39)
[2018-12-21 10:48] LABS: ABS Monocytes 1.1 10^3/ul (0-0.8); ABS Neutrophils 7.5 10^3/ul (1.5-7.7); Eosinophil % 0.4 %; Hematocrit 34 % (42-52); Lymphocyte % 10.8 %; Mean Corpuscular HGB Conc 33 g/dL (31-36); Mean Corpuscular Hemoglobin 31 pg (27-31); Mean Corpuscular Volume 94 fL (80-94); Mean Platelet Volume 8.5 fL (7.4-10.4); Platelet Count 152 10^3/uL (150-450); Red Cell Distribution Width 17 % (10.5-15); White Blood Count 9.7 10^3/uL (3.5-10.8)
[2018-12-21 10:59] LABS: Albumin 2.7 g/dL (3.2-5.2); Albumin/Globulin Ratio 1.1 (1-3); BUN/Creatinine Ratio 58.8 (8-20); C Reactive Protein 199.3 mg/L (<8.01); Calcium 8.4 mg/dL (8.6-10.3); EGFR African American 110.2 (>60); Globulin 2.4 g/dL (2-4); Magnesium 1.8 mg/dL (1.9-2.7); Potassium 3.6 mmol/L (3.5-5.0); Total Bilirubin 0.9 mg/dL (0.2-1.0); Total Protein 5.1 g/dL (6.4-8.9)
[2018-12-21 11:00] LABS: Troponin I 0.03 ng/mL (<0.04)
[2018-12-21 11:01] LABS: Activated Partial Thrombo Time 51.3 seconds (26.0-38.0); INR 4.74 (0.82-1.09)
[2018-12-21 11:50] LABS: TSH (Thyroid Stimulating Horm) 0.4 mcIU/mL (0.34-5.60)
[2018-12-21] MEDS ORDERED: NS 0.9% 1000 ML** 2,000 ML IV SCH (12:00)
[2018-12-21 13:04] LABS: Urine Appearance Cloudy; Urine Bilirubin Negative (Negative); Urine Blood Negative (Negative); Urine Color Yellow; Urine Glucose Negative (Negative); Urine Ketones Negative (Negative); Urine Nitrite Negative (Negative); Urine Protein Negative (Negative); Urine Specific Gravity 1.016 (1.010-1.030); Urine Urobilinogen Negative (Negative)
[2018-12-21] MEDS ORDERED: Morphine ORAL.SOLN 10 mg* 2 MG/ML UDC 5 ml PO PRN (14:07)
[2018-12-21] MEDS ORDERED: Dronabinol CAP* 2.5 MG PO PRN (14:07)
[2018-12-21] MEDS ORDERED: Diphenoxylat/Atrop 2.5-0.025M* 1 TAB PO PRN ×2 (14:07→14:34)
[2018-12-21] MEDS ORDERED: LORazepam TAB(*) 1 MG PO PRN (14:07)
[2018-12-21] MEDS ORDERED: Morphine 10 MG/ML VIAL (1 ml) IV PRN (14:15)
[2018-12-21] MEDS ORDERED: MORPHINE 100 MG PO ONE (14:15)
[2018-12-21] MEDS ORDERED: NS 0.9% 1000 ML** 1,000 ML IV SCH (14:15)
[2018-12-21] MEDS ORDERED: Dextrose 50% Syringe 50 ML* 25 GM/50 ML SYRINGE IV PUSH PRN (14:16)
[2018-12-21] MEDS: Metoprolol Succinate XL TAB* 100 MG PO SCH (17:29)
[2018-12-21] MEDS: Famotidine TAB* 20 MG PO SCH (17:30)
[2018-12-21] MEDS: risperiDONE TAB* 1 MG PO SCH (17:30)
[2018-12-21] MEDS: Lisinopril TAB* 10 MG PO SCH (17:30)
[2018-12-21] MEDS: Insulin LISPRO* 1 UNITS UNIT SUBCUT SCH ×2 (17:38→21:14)
--- NOTE | 2018-12-21 20:05 | HP ---
HISTORY AND PHYSICAL: DATE OF ADMISSION: 12/21/18 PRIMARY CARE PROVIDER: Dr. Hurst. ONCOLOGIST: Dr. Chambers. CHIEF COMPLAINT: Weakness. HISTORY OF PRESENT ILLNESS: Mr. Matias is a 63-year-old male who has stage IV pancreatic cancer, who had been essentially in his poor but stable state of health until Saturday afternoon when he began to have a difficult time ambulating. Most of the history is obtained from the patient's son as the patient is upset about being in the emergency room. According to the son, the patient typically is able to at least bear weight and use a walker to get up out. Starting on Saturday, the patient could use the walker and bear some weight , but his son had to hold him up quite a bit. This continued on Saturday, and today, Saturday, the patient was unable to essentially bear any weight. The patient does complain of pain around the lower ribcage in a band-like fashion around the torso. Pain has been quite severe. He is already on high dose MS Contin and immediate release morphine. The patient has not taken his pain medications today. The patient's son also notes that the patient has been making statements that did not quite make sense since this past Saturday. The patient is typically incontinent of urine related to difficulties getting to the bathroom and having BPH and the patient denies any cough or sputum production. He does have occasional dysuria. No recent diarrhea. He lives with his son. The patient is supposed to have a home health aide; however, they were fired approximately 1 month ago and he has not had an aide since. The patient last had chemo at the beginning of October. He did, however, have radiation to the pancreas that ended almost 2 weeks ago. The patient has had poor appetite for the last couple days as well as early satiety. PAST MEDICAL HISTORY: 1. Hepatitis C - treated. 2. DVT in the left lower extremity. 3. Kidney stones x4. 4. 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 5. Stage IV pancreatic cancer. 6. Type 2 diabetes. 7. Hypertension. PAST SURGICAL HISTORY: 1. Bilateral carpal tunnel release. 2. Cholecystectomy. 3. [id number] insertion. 4. Back surgery. ALLERGIES: CARBAMAZEPINE, SUNFLOWER OIL, LATEX, ADHESIVE TAPE, NALTREXONE, and SULFA. MEDICATIONS: 1. MS Contin 100 mg p.o. daily at noon. 2. MS Contin 60 mg p.o. morning and night. 3. Lantus 30 units subcutaneous daily. 4. Dronabinol 2.5 mg p.o. t.i.d. p.r.n. appetite stimulation. 5. Lomotil 1 tab p.o. q.6 hours p.r.n. diarrhea. 6. Risperdal 1 mg p.o. q.h.s. 7. Ativan 1 mg p.o. q.h.s. p.r.n. insomnia. 8. Amlodipine 10 mg p.o. daily. 9. Gabapentin 600 mg p.o. t.i.d. 10. Medical marijuana 2 inhaled p.o. q.8 hours p.r.n. vomiting. 11. Famotidine 40 mg p.o. q.h.s. 12. Flomax 0.8 mg p.o. daily. 13. Morphine IR 30 mg p.o. q.5 hours p.r.n. pain. 14. Finasteride 5 mg p.o. daily. 15. Flexeril 10 mg p.o. t.i.d. 16. Coumadin 5 mg p.o. daily (this has been on hold since 12/19/18). 17. Benazepril 40 mg p.o. q.h.s. 18. Glimepiride 5 mg p.o. daily. 19. Metoprolol XL 100 mg p.o. q.h.s. FAMILY HISTORY: Mom at the age of 70 of pancreatic cancer. Dad at the age of 75 of Alzheimer's disease. SOCIAL HISTORY: The patient does smoke on occasion now, he previously smoked 1 pack per day for 50 years. He denies any alcohol use. He worked as a counselor. He is . He has 4 children. His son, Rodolfo, with whom he lives, is his healthcare proxy. REVIEW OF SYSTEMS: A complete 11-system review of systems is obtained. Pertinent positives and negatives are as per HPI and otherwise negative. PHYSICAL EXAMINATION GENERAL: The patient is a well-developed, chronically ill-appearing, middle- aged male, who appears older than his stated age, lying in a stretcher, in no acute distress. VITAL SIGNS: Blood pressure 125/67, pulse 81, respirations 14, temp 97.5, O2 sat 96% on room air. HEENT: Pupils are equal and round. Extraocular muscles are intact. Oropharynx is clear. Oral mucosa is moist. The patient has poor dentition. NECK: There is no submandibular, cervical, or supraclavicular adenopathy. PULMONARY: Lungs are clear to auscultation anteriorly. CARDIAC: Normal S1, S2. Regular rate and rhythm. I do not appreciate any murmurs. There is 2+ edema of the bilateral lower extremities extending up to the hips. ABDOMEN: Bowel sounds are present. Abdomen is soft, nondistended. He does not appear to be tender to any palpation, though states he has pain across the upper abdomen. MUSCULOSKELETAL: There is no cyanosis or clubbing of the digits. The patient has full active range of motion of the upper extremities. Lower extremity range of motion is severely limited due to weakness. NEURO: Cranial nerves II through XII appeared to be grossly intact. Sensation is intact to light touch throughout. Strength is 5/5 and symmetric in the upper extremities. Lower extremity strength is 4/5 with dorsi and plantar flexion. The patient is unable to lift his legs off the bed, but grimaces in pain when trying to do so. PSYCH: The patient is alert. He is cantankerous. He does not readily answer my questions, but does make it known that he is not happy in the emergency room. SKIN: Warm and dry. There are no rashes. There is a large purple hematoma on the patient's right flank; this was present at least dating back to this past Saturday. DIAGNOSTIC STUDIES/LAB DATA: WBC 9.7, hemoglobin 11.0, hematocrit 34, platelets 152. INR 4.73. Sodium 138, potassium 3.6, chloride 104, CO2 of 26, BUN 50, creatinine 0.85, glucose 165, lactic acid 2.2, calcium 8.4, magnesium 1.8, bilirubin 0.9. AST 74, ALT 79, alk phos 831. CPK 835, troponin 0.03, CRP 199.3, BNP 44, albumin 2.7, TSH 0.4. Urinalysis reveals cloudy urine with specific gravity of 1.016 and otherwise negative for signs of infection. EKG reveals normal sinus rhythm without any acute ST-T wave abnormalities. Chest x-ray reveals lung volumes appear to be small likely due to incomplete inspiration. There is potentially small left-sided pleural effusion. CT brain reveals normal CT of the brain. ASSESSMENT AND PLAN: Mr. Matias is a 63-year-old male who has stage IV pancreatic carcinoma, chronic left lower extremity deep venous thrombosis, type 2 diabetes and hypertension, who presents to the emergency room with weakness. 1. Weakness. At this point, the patient is unable to be managed at home by the patient's son. He is unable to bear any weight. He is able to dorsi and plantar flex the feet; however, when I ask him to try to lift his legs off the bed, he is unable to do so. It is unclear if this is related to pain or if the patient is truly unable to perform this activity. The patient does have known compression fractures involving T10 and T11 based on MRI obtained on 11/20/18. Given the new sudden worsened weakness, I do think it is prudent to repeat these MRIs. This will be done tomorrow as it is not emergent. At this point, the patient is not giving any history or signs of cauda equina syndrome. We will continue the patient's home morphine regimen for pain control. PT evaluation is recommended and should be ordered tomorrow after his MRIs are obtained. Neuro checks will be obtained every 6 hours to ensure that the degree of weakness remained stable. There are no signs of infection that make me believe that infection is causing his increased weakness. 2. Lactic acidosis. The patient has a very mildly elevated lactic acid of 2.2. This is likely related to volume depletion. The patient has received normal saline in the ER and we will continue on 75 mL per hour x1 more liter. 3. Elevated BUN. The patient's BUN has been climbing over the last couple days. This is in the setting of a normal creatinine. I will obtain a stool occult blood when the patient has a bowel movement. His hemoglobin is down slightly today compared to labs obtained on 12/19/18. That lab, however, on was down from October labs. This will need to be monitored. 4. Left lower extremity deep venous thrombosis. The patient is chronically on Coumadin. His INR was greater than 10 on 12/19/18. It is now down to 4.74. We will continue to hold Coumadin for now; however, his Coumadin should be reinstituted likely in the next 24 to 36 hours. 5. Type 2 diabetes. I will continue the patient's usual dose of Lantus 30 units [address] him on a lispro sliding scale. We are going to hold his glipizide. 6. Hypertension. BP is under good control. We will continue amlodipine and benazepril. 7. Benign prostatic hypertrophy. Continue finasteride and Flomax. 8. Stage IV pancreatic cancer. Continue morphine IR 30 mg 5 times daily p.r.n. pain and MS Contin 60 mg q.a.m. and q.p.m. and 100 mg at noon. I spoke with Dr. Chambers about this patient. Liver abnormalities are related to his underlying pancreatic cancer. The patient does also have an elevated CRP of 199.3. There are no clear signs of infection. I question if the elevated CRP may be related to the recently completed radiation therapy. 9. DVT prophylaxis. According to the Adult Thrombosis Prophylaxis Risk Factor Assessment Guide, the patient has a total risk factor score of 9, making him the highest risk. He already takes Coumadin and has a therapeutic INR. Coumadin will be re-instituted when his INR trends down. 10. The patient is a full code. [id number]/[facility] #: [id number] MTDD
[2018-12-21] MEDS: Morphine TAB Extended Release (*) 30 MG TAB.ER PO SCH (21:13)
[2018-12-21] MEDS: Gabapentin CAP(*) 300 MG PO SCH (21:13)
[2018-12-21] MEDS: Cyclobenzaprine TAB* 10 MG PO SCH (21:14)
--- NOTE | 2018-12-21 21:16 | PN ---
Progress Note - Progress Note Date of Service: 12/21/18 Note: paged by Radiology regarding new findings on Lumbar MRI - ? insufficiency compression fracture of early discitis vs osteo. Also with Hematoma vs abscess on R QL. With his weakness and inability to ambulate, concern for fall contributing to fracture and hematoma in setting of supratherapuetic INR is most consistent. However he does have a CPR of 200 but had recent radiation. Had blood cultures drawn in the ED. Will add on an ESR. No fever or white count. Will hold off on starting antibiotics at this time. Recommend reviewing films with radiologist in AM.
[2018-12-21 22:17] LABS: Erythrocyte Sed Rate 40 mm/Hr (0-19)
[2018-12-22 05:25] LABS: INR 3.19 (0.82-1.09)
[2018-12-22 05:32] LABS: BUN/Creatinine Ratio 57.9 (8-20); Calcium 7.9 mg/dL (8.6-10.3); EGFR African American 174.7 (>60); EGFR Non-African American 144.4 (>60); Potassium 3.7 mmol/L (3.5-5.0)
[2018-12-22] MEDS: Cyclobenzaprine TAB* 10 MG PO SCH ×2 (07:47→16:41)
[2018-12-22] MEDS: Morphine TAB Extended Release (*) 30 MG TAB.ER PO SCH (07:47)
[2018-12-22] MEDS: Insulin LISPRO* 1 UNITS UNIT SUBCUT SCH ×3 (08:22→16:48)
[2018-12-22] MEDS: Gabapentin CAP(*) 300 MG PO SCH ×2 (08:43→13:37)
[2018-12-22] MEDS ORDERED: NON FORMULARY MED* (Amlodipine Besylate [Norvasc] 10 MG) PO SCH (09:00)
[2018-12-22] MEDS ORDERED: Insulin GLARGINE(*) 1 UNITS UNIT SUBCUT SCH (09:00)
[2018-12-22] MEDS ORDERED: MORPHINE 100 MG PO SCH (12:00)
--- NOTE | 2018-12-22 15:22 | CONS ---
CONSULTATION REPORT: DATE OF CONSULTATION: 12/22/18 REQUESTING PHYSICIAN: Dr. Chambers. CONSULTING SERVICE: Infectious Diseases. REASON FOR CONSULTATION: Back pain, abnormal MRI. IMPRESSION: 1. A few days of severe mid back pain that has been so severe he has had difficulty getting around. He has a known T10 and T11 insufficiency fracture that was diagnosed on 11/24/18 by MRI and his MRI this weekend shows another insufficiency fracture versus early osteomyelitis and diskitis at L3-L4 with an associated abscess versus hematoma in the right quadratus lumborum muscle. He has had no constitutional symptoms. He is anticoagulated and did have a recent fall with a right thigh hematoma. I think infectious process less likely. He does have elevated CRP, which can be seen in an immune response to hematoma itself. 2. Pancreatic cancer. 3. Sulfa allergy. 4. DVT. 5. Nephrolithiasis. 6. Type 2 diabetes. 7. Port placement for chemotherapy. RECOMMENDATIONS: Continue off antibiotics, we will trend the CRP. If it is not coming down, I think the next step would be to see if radiology could access the collection which is blood versus abscess. If it is blood that would be reassuring; if there is not, an infectious process could be present. HISTORY OF PRESENT ILLNESS: This is a 63-year-old male with stage IV pancreatic cancer, history of chemotherapy and recently has been unable to care for himself at home. He has had worsening back pain over the last few days, after about a month ago developing severe mid back pain and found to have an insufficiency fracture. Now he has ongoing pain in the mid and lower back without fevers, chills, drenching sweats, or change in appetite. He does not note any weakness or numbness in his legs. His was admitted to the hospital on 12/21/18. MRI findings as above. He had a white count of 9, sed rate of 40, CRP of 199. He did recently fall and has a large right buttock hematoma. He thinks the pain now is getting a little bit better. PAST MEDICAL HISTORY: 1. Hep C, treated. 2. DVT on anticoagulation. 3. Nephrolithiasis. 4. Stage IV pancreatic cancer on chemotherapy. 5. Type 2 diabetes. 6. Hypertension. 7. Status post bilateral carpal tunnel release. 8. Status post cholecystectomy. 9. Status post port placement. 10. History of spine surgery, he does think included hardware. ALLERGIES: CARBAMAZEPINE, LATEX, TAPE, NALTREXONE, and SULFA. MEDICATIONS: 1. Amlodipine. 2. Cyclobenzaprine. 3. Dronabinol. 4. Famotidine. 5. Finasteride. 6. Gabapentin. 7. Insulin glargine. 8. Insulin lispro. 9. Lisinopril. 10. Lorazepam at bedtime. 11. Morphine as needed. 12. Risperdal. 13. Tamsulosin. SOCIAL HISTORY: He lives in [place] with his son. He is a retired therapist. He is a smoker. No alcohol use. REVIEW OF SYSTEMS: All negative except as noted above to 14-point review. FAMILY HISTORY: Mother at 70 of pancreatic cancer. Father at 75 of Alzheimer's. PHYSICAL EXAM: Vital Signs: Temperature is 37, heart rate 80, respiratory rate 16, blood pressure 125/63, oxygen saturation 99% on room air. In general, he is awake, not in distress. Neurologic: He is oriented x3, follows commands , answers questions appropriately. Strength is 5/5 in the quadriceps, tibialis anterior and gastrocnemius bilaterally. Sensation intact to light touch in both feet. HEENT: There is no conjunctival hemorrhage. Oropharynx without lesions. Neck: Supple without mass. Heart: Regular rate and rhythm without murmurs, rubs, or gallops. Lungs: Clear to auscultation bilaterally. Abdomen: Soft, nontender, nondistended. Bowel sounds present. Skin: There is no rash or splinter hemorrhage. Musculoskeletal: There is a purplish discoloration on the right flank with mild tenderness. There is no surrounding erythema. There is no crepitus or fluctuance. There is no spine tenderness to palpation. DIAGNOSTIC STUDIES/LAB DATA: Creatinine 0.5, white blood cell count 9, hemoglobin 11, platelets 152. Urinalysis is negative. Please see impressions and recommendations outlined above. Thank you for asking me to see Mr. Matias in consultation. [id number]/[facility] #: [id number] [facility]
[2018-12-22] MEDS: Metoprolol Succinate XL TAB* 100 MG PO SCH (18:23)
[2018-12-22] MEDS: Lisinopril TAB* 10 MG PO SCH (18:23)
[2018-12-22] MEDS: Famotidine TAB* 20 MG PO SCH (18:23)
[2018-12-22] MEDS: risperiDONE TAB* 1 MG PO SCH (18:24)
[2018-12-22 20:38] VITALS: BP 136/54
[2018-12-22] MEDS ORDERED: Tamsulosin CAP* 0.4 MG PO SCH (21:00)
[2018-12-22] MEDS ORDERED: Finasteride TAB* 5 MG PO SCH (21:00)
[2018-12-22] MEDS ORDERED: amLODIPine TAB* 5 MG PO SCH (21:00)
== END 2018-12-23 03:13 | disposition left against medical advice (07) | DRG 543 ==
LOC: ED 09:55 → MEDTELE 14:49
PROVIDERS: ADMIT Hospitalist; ATTEND Internal Medicine Hematology & Oncology
DX: M48.56XA Collapsed vertebra, not elsewhere classified, lumbar region, initial encounter for fracture (principal); M46.26 Osteomyelitis of vertebra, lumbar region; C25.9 Malignant neoplasm of pancreas, unspecified; C78.7 Secondary malignant neoplasm of liver and intrahepatic bile duct; E87.2 Acidosis; M46.46 Discitis, unspecified, lumbar region; G89.4 Chronic pain syndrome; R79.1 Abnormal coagulation profile; S70.11XA Contusion of right thigh, initial encounter; S30.0XXA Contusion of lower back and pelvis, initial encounter; W18.30XA Fall on same level, unspecified, initial encounter; E11.8 Type 2 diabetes mellitus with unspecified complications; N40.1 Benign prostatic hyperplasia with lower urinary tract symptoms; N39.498 Other specified urinary incontinence; I10 Essential (primary) hypertension; F17.210 Nicotine dependence, cigarettes, uncomplicated; Y92.009 Unspecified place in unspecified non-institutional (private) residence as the place of occurrence of the external cause; Z86.718 Personal history of other venous thrombosis and embolism; Z79.01 Long term (current) use of anticoagulants; Z86.19 Personal history of other infectious and parasitic diseases; Z91.040 Latex allergy status; Z88.2 Allergy status to sulfonamides; Z88.8 Allergy status to other drugs, medicaments and biological substances; Z91.048 Other nonmedicinal substance allergy status; Z79.4 Long term (current) use of insulin; Z79.891 Long term (current) use of opiate analgesic; Z79.899 Other long term (current) drug therapy; Z80.0 Family history of malignant neoplasm of digestive organs
CPT/HCPCS: 36415; 70450; 71045; 72146; 72148; 80048; 80053; 81003; 82140; 82550; 83605; 83735; 83880; 84443; 84484; 85025; 85610; 85652; 85730; 86140; 87040; 93005; 99285; A9270-GY; J1642; J2270

== ENCOUNTER 2018-12-26 15:52 | Emergency (ER) | payer MEDICAID, OTHER ==
[2018-12-26] MEDS ORDERED: Morphine 4 MG/ML VIAL (1 ml) 4 MG/ML VIAL IV ONE ×2 (16:27→18:50)
[2018-12-26] MEDS ORDERED: NS 0.9% 1000 ML** 1,000 ML IV ONE (16:27)
[2018-12-26] MEDS ORDERED: Ondansetron INJ* 2 MG/ML VIAL IV ONE (16:27)
--- NOTE | 2018-12-26 16:34 | ED ---
Complex/Multi-Sys Presentation - HPI Summary HPI Summary: Pt is a 63 y/o M presenting to the ED with a chief complaint of blood in his spine and R-sided rib pain. He states he had an MRI done of his back a couple of days ago, where they found a collection of fluid in his spine. He left the hospital AMA so he was unaware of these results until today; he was informed by his PCP, Dr. Hurst. The pt has hx of pancreatic, liver, and lymph node CA, stage IV, and his oncologist is Dr. Chambers. He also fell the other day onto his R -sided rib area, and thinks he broke his rib, and also notes he has a DVT. He smokes 2-3 cigarettes a day to help him urinate, and he has a R-sided port. He also has hx of DM. He is on Morphine at home, and last took it at 0700 today. The pt has plans to restart chemo soon, which is why his doctors are worried the collection could be an infection. From prior visits, the pt is noted to have frequent and severe falls recently, as well as be somewhat mentally altered. He is on Coumadin for his DVT, which has been present for 6-7 years. Additionally, his radiation oncologist is Dr. Han. - History Of Current Complaint Chief Complaint: EDFall Time Seen by Provider: 12/26/18 16:12 Hx Obtained From: Patient Onset/Duration: Gradual Onset, Lasting Weeks, Still Present Timing: Hours Severity Currently: Severe Severity Initially: Severe Location: Pain At: - R rib area Associated Signs And Symptoms: Positive: Other - R-sided rib pain, blood in spine - Allergies/Home Medications Allergies/Adverse Reactions: Allergies Allergy/AdvReac Type Severity Reaction Status Date / Time carbamazepine Allergy Severe Swelling Verified 12/26/18 16:02 Of Face,Lips,& Throat sunflower oil Allergy Severe Swelling Verified 12/26/18 16:02 Of Face,Lips,& Throat latex Allergy Intermediate Rash Verified 12/26/18 16:02 Adhesive Tape Allergy Rash Verified 12/26/18 16:02 naltrexone [From Embeda] Allergy Swelling Verified 12/26/18 16:02 Sulfa (Sulfonamide AdvReac Mild See Comment Verified 12/26/18 16:02 Antibiotics) PMH/Surg Hx/FS Hx/Imm Hx Previously Healthy: No Endocrine/Hematology History: Reports: Hx Anticoagulant Therapy, Hx Diabetes, Hx Anemia - warfarin therapy Cardiovascular History: Reports: Hx Deep Vein Thrombosis, Hx Hypercholesterolemia, Hx Hypertension, Other Cardiovascular Problems/Disorders - ON COUMADIN Denies: Hx Pacemaker/ICD Respiratory History: Reports: Hx Sleep Apnea - not diagnosed Denies: Hx Chronic Obstructive Pulmonary Disease (COPD) GI History: Reports: Hx Cirrhosis, Hx Gastroesophageal Reflux Disease, Other GI Disorders - PANCREATIC CANCER History: Reports: Hx Kidney Stones - several times, last episode approx 3 yrs ago?, Other Problems/Disorders - HX OF STONES Denies: Hx Renal Disease Musculoskeletal History: Reports: Hx Arthritis - neck, arms, hands, legs, Other Musculoskeletal History - Chronic Pain Sensory History: Reports: Hx Cataracts - mild bi-lat, Hx Contacts or Glasses - wears glasses Denies: Hx Glaucoma, Hx Hearing Aid Opthamlomology History: Reports: Hx Cataracts - mild bi-lat, Hx Contacts or Glasses - wears glasses Denies: Hx Glaucoma Neurological History: Reports: Hx Headaches, Hx Migraine - once a month, uses relaxation techniques, medication, Hx Seizures - 10 years ago, no meds now, Other Neuro Impairments/Disorders - pt is not taking medication for anxiety/ depression Denies: Hx Dementia Psychiatric History: Reports: Hx Anxiety, Hx Depression Denies: Hx Panic Disorder - Cancer History Cancer Type, Location and Year: October 2017 - dx w/ pancreatic cancer w/ liver mets Hx Chemotherapy: Yes - started recently - Surgical History Surgery Procedure, Year, and Place: Cholecystectomy; Bilateral Carpal Tunnel PT NEEDS TO BE SCHEDULED AT MAIN [facility]AMP[facility]. BLOOD CLOT IN LEFT LEG NEEDS TO HAVE PORT ACCESSED. LSP Back and CSP surgery [facility] [place]. 2018 dental extraction. october 2017 - liver and pancreas biopsies Hx Anesthesia Reactions: No Infectious Disease History: No Infectious Disease History: Reports: Hx Hepatitis - hep c positive Denies: Traveled Outside the [place] in Last 30 Days - Family History Known Family History: Positive: Hypertension, Other - FMHX OF PANCREATIC CANCER , MOTHER - Social History Alcohol Use: None Hx Substance Use: No Substance Use Type: Reports: Marijuana Substance Use Comment - Amount & Last Used: prescribed Hx Tobacco Use: Yes Smoking Status (MU): Heavy Every Day Tobacco Smoker Type: Cigarettes Amount Used/How Often: 10 cig per day Have You Smoked in the Last Year: Yes Review of Systems Positive: Other - "blood in spine" Positive: Myalgia - R-sided rib pain All Other Systems Reviewed And Are Negative: Yes Physical Exam - Summary Physical Exam Summary: GENERAL: Patient is a well-developed and nourished M who is lying comfortable in the stretcher. Patient is not in any acute respiratory distress. HEAD AND FACE: Normocephalic EYES: PERRLA, EOMI x 2. EARS: Hearing grossly intact. MOUTH: Oropharynx within normal limits. NECK: Supple, trachea is midline, no adenopathy, no JVD, no carotid bruit. CHEST: Ecchymosis seen on the R flank. Tender to palpation on R anterior rib area. LUNGS: Clear to auscultation bilaterally. No wheezing or crackles. CVS: Regular rate and rhythm, S1 and S2 present, no murmurs or gallops appreciated. ABDOMEN: Soft, non-tender. Bowel sounds are normal. No abnormal abdominal pulsations. EXTREMITIES: Full ROM in all major joints, no edema, no cyanosis or clubbing. NEURO: Alert and oriented x 3. No acute neurological deficits. Speech is normal and follows commands. SKIN: Dry and warm Triage Information Reviewed: Yes Vital Signs On Initial Exam: Initial Vitals Temp Pulse Resp BP Pulse Ox 98.7 F 107 12 149/99 96 12/26/18 16:01 12/26/18 16:01 12/26/18 16:01 12/26/18 16:01 12/26/18 16:01 Vital Signs Reviewed: Yes Diagnostics - Vital Signs Vital Signs Temp Pulse Resp BP Pulse Ox 12/26/18 16:01 98.7 F 107 12 149/99 96 - Laboratory Result Diagrams: 12/26/18 16:48 12/26/18 16:48 Lab Statement: Any lab studies that have been ordered have been reviewed, and results considered in the medical decision making process. - Radiology Ribs w/ CXR Radiology Interpretation Completed By: Radiologist Summary of Radiographic Findings: No evidence for fracture. ED physician has reviewed this report. - EKG 1736 Cardiac Rate: NL - 76bpm EKG Rhythm: Sinus Rhythm ST Segment: Normal Ectopy: None Summary of EKG Findings: EKG at 1736 shows NSR at 76bpm with nml axis and nml intervals. Complex Multi-Symp Course/Dx Course Of Treatment: Pt is a 63 y/o M presenting to the ED with a chief complaint of blood in his spine and R-sided rib pain. The pt has hx of pancreatic, liver, and lymph node CA, stage IV, and his oncologist is Dr. Chambers. He also fell the other day onto his R-sided rib area, and thinks he broke his rib, and also notes he has a DVT. He smokes 2-3 cigarettes a day to help him urinate, and he has a R-sided port. He also has hx of DM. On exam, the pt is tender to palpation in the R anterior rib area, and has ecchymosis on the R flank. Pts hematology shows RBC of 3.45, Hgb of 10.7, Hct of 32, and RDW of 17. His INR is 1.45. His chemistry shows Creatinine of 0.61, BUN/ Creatinine ratio of 26.2, Calcium of 8.1, AST of 44, ALT of 90, Alkaline Phosphate of 975, CRP is 16.17, total protein of 4.7, and Albumin of 2.6. Ribs with CXR shows no evidence for fracture. EKG at 1736 shows NSR at 76bpm with nml axis and nml intervals. 1821 Dr. Espinoza visited with the patient. He recommended not admitting the patient, as he has hx of leaving AMA and being confrontational during his visits, and he thinks his current complaint is something that can be figured out from home. The pt is expressing wanting to go home, and Dr. Espinoza is agreeable with that plan. He will be given one set of Lovenox prior to discharge, and he will also be discharged with a Lovenox prescription. Dr. Espinoza also recommended discontinuing the Warfarin, and he will be setting up a CT in outpatient for drainage of the fluid on his spine. He will be d/c'ed with encounter for physical exam. - Diagnoses Provider Diagnoses: Encounter for physical examination Discharge - Sign-Out/Discharge Documenting (check all that apply): Patient Departure Patient Received Moderate/Deep Sedation with Procedure: No - Discharge Plan Condition: Stable Disposition: HOME Referrals: Michael Hurst MD [Primary Care Provider] - Toni Espinoza MD [Medical Doctor] - Additional Instructions: Please call Dr. Espinoza's office on Saturday morning, 12/29/18. Return to the ED with any new or worsening symptoms. - Billing Disposition and Condition Condition: STABLE Disposition: Home - Attestation Statements Document Initiated by Marilee: Yes Documenting Scribe: Cary Quintero Provider For Whom Marilee is Documenting (Include Credential): Fidel Glynn MD. Scribe Attestation: I, Cary Quintero, scribed for Fidel Glynn MD. on 12/26/18 at 2107. Scribe Documentation Reviewed: Yes Provider Attestation: The documentation as recorded by the irisibe, Cary Quintero accurately reflects the service I personally performed and the decisions made by me, Lashawn Glynn MD. Status of Scribe Document: Viewed Consult Consult: 1730 - I spoke with Dr. Espinoza about the pt's present condition, who stated he will be talking with Dr. Chambers and will call me back about their conversation. 1820 - Dr. Espinoza visited with the patient. He recommended not admitting the patient, as he has hx of leaving AMA and being confrontational during his visits , and he thinks his current complaint is something that can be figured out from home. The pt is expressing wanting to go home, and Dr. Espinoza is agreeable with that plan. He will be given one set of Lovenox prior to discharge, and he will also be discharged with a Lovenox prescription. Dr. Espinoza also recommended discontinuing the Warfarin, and he will be setting up a CT in outpatient for drainage of the fluid on his spine.
[2018-12-26 16:59] LABS: ABS Basophils 0.1 10^3/ul (0-0.2); ABS Eosinophils 0.1 10^3/ul (0-0.6); ABS Monocytes 0.9 10^3/ul (0-0.8); ABS Neutrophils 6.2 10^3/ul (1.5-7.7); Eosinophil % 1.1 %; Hematocrit 32 % (42-52); Hemoglobin 10.7 g/dL (14.0-18.0); Lymphocyte % 21.5 %; Mean Corpuscular HGB Conc 33 g/dL (31-36); Mean Corpuscular Hemoglobin 31 pg (27-31); Mean Corpuscular Volume 94 fL (80-94); Mean Platelet Volume 8.2 fL (7.4-10.4); Nucleated Red Blood Cells % 0.1; Platelet Count 175 10^3/uL (150-450); Red Blood Count 3.45 10^6 /uL (4.18-5.48); Red Cell Distribution Width 17 % (10-15); White Blood Count 9.3 10^3/uL (3.5-10.8)
[2018-12-26 17:13] LABS: Activated Partial Thrombo Time 30.2 seconds (26.0-38.0); INR 1.45 (0.82-1.09)
[2018-12-26 17:16] LABS: Albumin 2.6 g/dL (3.2-5.2); Albumin/Globulin Ratio 1.2 (1-3); BUN/Creatinine Ratio 26.2 (8-20); C Reactive Protein 16.17 mg/L (<8.01); Calcium 8.1 mg/dL (8.6-10.3); EGFR African American 161.5 (>60); EGFR Non-African American 133.5 (>60); Globulin 2.1 g/dL (2-4); Potassium 3.5 mmol/L (3.5-5.0); Total Bilirubin 0.6 mg/dL (0.2-1.0); Total Protein 4.7 g/dL (6.4-8.9)
[2018-12-26 17:17] LABS: Troponin I 0.01 ng/mL (<0.04)
[2018-12-26] MEDS ORDERED: Enoxaparin(*) 100 MG/ML SYR SUBCUT ONE (18:23)
--- NOTE | 2018-12-26 18:31 | CONSULT ---
Consultation - Reason for Consultation Reason for Consultation: Para spinal fluid collection, pancreatic cancer Ordering Provider: Michael Hurst Chief Complaint: I want chemotherapy next week. History of Present Illness: Presented on 12/21 with progressive weakness and falls. Depending more on son for mobility. He was in for one day and left AMA, he reports because he dose not like hospitals and he could no have his medical marijuana that prevents seizures. During admission he had an MRI of lumber spine with compression fracture, inflammation of the disk verse infection and para spinal fluid collection, possible abscess. He had consultation ID who thought findings likely from fall/trauma but recommended CT guided drainage before chemotherapy. He left before procedure. Since being home symptoms have been stable. He reports he is mobile around house with minimal support of son. He did have an additional fall 2 days ago, pain in ribs after hitting chair. He is eating well , pain managed, no fevers or chills. He came to hospital after call from Dr. Tamez that he will be unable to proceed with therapy unless he has further evaluation. Allergies/Medications Allergies/Adverse Reactions: Allergies Allergy/AdvReac Type Severity Reaction Status Date / Time carbamazepine Allergy Severe Swelling Verified 12/26/18 16:02 Of Face,Lips,& Throat sunflower oil Allergy Severe Swelling Verified 12/26/18 16:02 Of Face,Lips,& Throat latex Allergy Intermediate Rash Verified 12/26/18 16:02 Adhesive Tape Allergy Rash Verified 12/26/18 16:02 naltrexone [From Embeda] Allergy Swelling Verified 12/26/18 16:02 Sulfa (Sulfonamide AdvReac Mild See Comment Verified 12/26/18 16:02 Antibiotics) Results - Lab Results Lab Results: 12/26/18 12/26/18 12/26/18 16:48 16:48 16:48 WBC 9.3 RBC 3.45 L Hgb 10.7 L Hct 32 L MCV 94 MCH 31 MCHC 33 RDW 17 H Plt Count 175 MPV 8.2 Neut % (Auto) 66.9 Lymph % (Auto) 21.5 Maverick % (Auto) 9.3 Eos % (Auto) 1.1 Baso % (Auto) 1.2 Absolute Neuts (auto) 6.2 Absolute Lymphs (auto) 2.0 Absolute Monos (auto) 0.9 H Absolute Eos (auto) 0.1 Absolute Basos (auto) 0.1 Absolute Nucleated RBC 0.0 Nucleated RBC % 0.1 INR (Anticoag Therapy) 1.45 H APTT 30.2 Sodium 141 Potassium 3.5 Chloride 107 Carbon Dioxide 28 Anion Gap 6 BUN 16 Creatinine 0.61 L Est GFR ( Amer) 161.5 Est GFR (Non-Af Amer) 133.5 BUN/Creatinine Ratio 26.2 H Glucose 122 H Lactic Acid Calcium 8.1 L Total Bilirubin 0.60 AST 44 H ALT 80 H Alkaline Phosphatase 975 H Troponin I 0.01 C-Reactive Protein 16.17 H Total Protein 4.7 L Albumin 2.6 L Globulin 2.1 Albumin/Globulin Ratio 1.2 Blood Type Antibody Screen 12/26/18 12/26/18 16:48 16:48 WBC RBC Hgb Hct MCV MCH MCHC RDW Plt Count MPV Neut % (Auto) Lymph % (Auto) Maverick % (Auto) Eos % (Auto) Baso % (Auto) Absolute Neuts (auto) Absolute Lymphs (auto) Absolute Monos (auto) Absolute Eos (auto) Absolute Basos (auto) Absolute Nucleated RBC Nucleated RBC % INR (Anticoag Therapy) APTT Sodium Potassium Chloride Carbon Dioxide Anion Gap BUN Creatinine Est GFR ( Amer) Est GFR (Non-Af Amer) BUN/Creatinine Ratio Glucose Lactic Acid 2.0 Calcium Total Bilirubin AST ALT Alkaline Phosphatase Troponin I C-Reactive Protein Total Protein Albumin Globulin Albumin/Globulin Ratio Blood Type AB Negative Antibody Screen Negative
[2018-12-26 18:36] LABS: Erythrocyte Sed Rate 28 mm/Hr (0-19)
--- NOTE | 2018-12-26 18:41 | PN ---
Progress Note - Progress Note Date of Service: 12/26/18 SOAP: Subjective: []Presented on 12/21 with progressive weakness and falls. Depending more on son for mobility. He was in for one day and left AMA, he reports because he dose not like hospitals and he could no have his medical marijuana that prevents seizures. During admission he had an MRI of lumber spine with compression fracture, inflammation of the disk verse infection and para spinal fluid collection, possible abscess. He had consultation ID who thought findings likely from fall/trauma but recommended CT guided drainage before chemotherapy. He left before procedure. Since being home symptoms have been stable. He reports he is mobile around house with minimal support of son. He did have an additional fall 2 days ago, pain in ribs after hitting chair. He is eating well , pain managed, no fevers or chills. He came to hospital after call from Dr. Tamez that he will be unable to proceed with therapy unless he has further evaluation. PMHx 1. Pancreatic cancer, metastatic. Salvage chemotherapy planned for next week. Patient of Dr. Chambers. - Progression after FOLFIRINOX 2. Compression fracture T and L spine. L spine MRI as above, T spine stable 3. DM-2 4. HTN 5. LLE DVT, on coumadin. Medications: Reviewed from clinic chart date 12/19/18 Objective: [] Vital Signs Temp Pulse Resp BP Pulse Ox 98.7 F 76 18 130/71 99 12/26/18 16:01 12/26/18 17:37 12/26/18 17:12 12/26/18 17:37 12/26/18 17:37 HEENT pale, no oral lesions CTA RRR S1S2 obese, NT ND Ext +1 edema neuro: strength 5/5 LE on exam except straight leg raise, 4/5 AAOx3 Assessment: []Discussed options. He can be admitted with biopsy on Saturday. He has stable symptoms and if functional at home. He does not want to come in hospital. It is reasonable to hold Warfarin and take Lovenox at home, can plan out patient biopsy early next week. He prefers this option. Plan: []1. Will go home from ER 2. Continue current pain medication: - Morphine ER 60 bid, Morphine IR 30 q 4 prn - cyclobenzaprine 10 mg at bedtime 3. Hold Warfarin and will start Lovenox 100 mg sq q 12 4. Will follow up Saturday for biopsy. 5. Must call me for: fevers, increased pain, increased weakness, confusion, any other concerns.
[2018-12-26 19:37] VITALS: BP 120/86
== END 2018-12-26 19:36 | disposition home or self-care (01) ==
LOC: ED 15:52
DX: Z00.00 Encounter for general adult medical examination without abnormal findings (principal); E11.9 Type 2 diabetes mellitus without complications; D64.9 Anemia, unspecified; I10 Essential (primary) hypertension; F17.210 Nicotine dependence, cigarettes, uncomplicated; Z86.718 Personal history of other venous thrombosis and embolism; Z79.01 Long term (current) use of anticoagulants; Z88.8 Allergy status to other drugs, medicaments and biological substances; Z91.040 Latex allergy status
CPT/HCPCS: 36415; 80053; 83605; 84484; 85025; 85610; 85652; 85730; 86140; 86850; 86900; 86901; 87040; 93005; 96361; 96372; 96374; 96375; 99283; 99284; J1642; J1650; J2270; J2405

== ENCOUNTER 2019-02-01 11:58 | Inpatient (IN) | payer MEDICAID ==
[2019-02-01] MEDS ORDERED: HYDROmorphone INJ1* 1 MG/ML SYRINGE IV ONE ×3 (13:43→21:14)
[2019-02-01] MEDS ORDERED: Ondansetron INJ* 2 MG/ML VIAL IV ONE (14:03)
[2019-02-01 14:36] LABS: Activated Partial Thrombo Time 38.9 seconds (26.0-38.0); INR 3.09 (0.82-1.09)
[2019-02-01 14:37] LABS: ABS Neutrophils 0.9 10^3/ul (1.5-7.7); Hematocrit 30 % (42-52); Hemoglobin 10.3 g/dL (14.0-18.0); Mean Corpuscular HGB Conc 34 g/dL (31-36); Mean Corpuscular Hemoglobin 32 pg (27-31); Mean Corpuscular Volume 94 fL (80-94); Red Blood Count 3.24 10^6 /uL (4.18-5.48); Red Cell Distribution Width 18 % (10-15); White Blood Count 1.8 10^3/uL (3.5-10.8)
[2019-02-01 14:39] LABS: Albumin 2.6 g/dL (3.2-5.2); Albumin/Globulin Ratio 1.3 (1-3); BUN/Creatinine Ratio 26.4 (8-20); Calcium 7.6 mg/dL (8.6-10.3); Magnesium 1.7 mg/dL (1.9-2.7); Potassium 3.9 mmol/L (3.5-5.0); Total Bilirubin 0.5 mg/dL (0.2-1.0); Total Protein 4.6 g/dL (6.4-8.9)
[2019-02-01 15:08] LABS: ABS Lymphocytes 0.8 10^3/ul (1.0-4.8); ABS Monocytes 0.1 10^3/ul (0-0.8); Eosinophil % 0.4 %; Lymphocyte % 42.2 %; Mean Platelet Volume 8.8 fL (7.4-10.4); Nucleated Red Blood Cells % 0.2; Platelet Count 90 10^3/uL (150-450)
--- NOTE | 2019-02-01 16:06 | ED ---
Neurological HPI - HPI Summary HPI Summary: frequent falls d/t leg and core pain/weakness. Was dx'd w/ T10,11 fx's in 2018 and has neglected to f/u w/ neurosurg - was also supposed to get back brace but he has not gotten one yet. Has been wearing an MARIA ELENA wrap around his upper abdomen/torso which he thinks helps pain a little. He has a wheelchair at home but continues to ambulate with cane at times. Has been taking morphine 100mg ER with 30mg IR for his pain related to stage pancreatic CA but pain in back and waist region has been worse since falling. Follows w/ oncology every 2 weeks for treatment. Admits to baseline LE neuropathy from chemo. Also has baseline incontinence of bowels/bladder. Denies saddle paresthesia and no UE numbness, tingling, weakness but B/L LE's feel weaker since falling. HAs been taking anticoagulants for a DVT in LLE which he's had for "years". INR was recently too high so he held his coumadin - recently restarted lovenox and coumadin - will re-check labs today. Denies head injury as a result of fall but agrees to check brain CT for injury. States he wants to go home after evaluation (ie. does not want to be admitted) - just wants to know "what's going on". Son is with him as well. Arrived by ambulance - no personal transport options at this time. - History of Current Complaint Chief Complaint: EDBackInjuryPain Stated Complaint: POSS BLOOD CLOT PER EMS Time Seen by Provider: 02/01/19 12:23 Hx Obtained From: Patient, Family/Fiscal Services Manager - son Pain Intensity: 10 - Additional Pertinent History Primary Care Physician: [id number] - Allergy/Home Medications Allergies/Adverse Reactions: Allergies Allergy/AdvReac Type Severity Reaction Status Date / Time carbamazepine Allergy Severe Swelling Verified 02/01/19 13:40 Of Face,Lips,& Throat sunflower oil Allergy Severe Swelling Verified 02/01/19 13:40 Of Face,Lips,& Throat latex Allergy Intermediate Rash Verified 02/01/19 13:40 Adhesive Tape Allergy Rash Verified 02/01/19 13:40 naltrexone [From Embeda] Allergy Swelling Verified 02/01/19 13:40 Sulfa (Sulfonamide AdvReac Mild See Comment Verified 02/01/19 13:40 Antibiotics) PMH/Surg Hx/FS Hx/Imm Hx Previously Healthy: Yes Endocrine/Hematology History: Reports: Hx Anticoagulant Therapy - coumadin, Hx Diabetes, Hx Anemia - warfarin therapy Cardiovascular History: Reports: Hx Deep Vein Thrombosis, Hx Hypercholesterolemia, Hx Hypertension, Other Cardiovascular Problems/Disorders - ON COUMADIN Denies: Hx Pacemaker/ICD Respiratory History: Reports: Hx Sleep Apnea - not diagnosed Denies: Hx Chronic Obstructive Pulmonary Disease (COPD) GI History: Reports: Hx Cirrhosis, Hx Gastroesophageal Reflux Disease, Other GI Disorders - PANCREATIC CANCER History: Reports: Hx Kidney Stones - several times, last episode approx 3 yrs ago?, Other Problems/Disorders - HX OF STONES Denies: Hx Renal Disease Musculoskeletal History: Reports: Hx Arthritis - neck, arms, hands, legs, Hx Back Problems - chronic bilateral foraminal narrowing, DDD, OA, s/p laminectomy , Hx of Fracture(s) - T10, T11 fx's, Other Musculoskeletal History - Chronic Pain Sensory History: Reports: Hx Cataracts - mild bi-lat, Hx Contacts or Glasses - wears glasses Denies: Hx Glaucoma, Hx Hearing Aid Opthamlomology History: Reports: Hx Cataracts - mild bi-lat, Hx Contacts or Glasses - wears glasses Denies: Hx Glaucoma Neurological History: Reports: Hx Headaches, Hx Migraine - once a month, uses relaxation techniques, medication, Hx Seizures - 10 years ago, no meds now, Other Neuro Impairments/Disorders - pt is not taking medication for anxiety/ depression Denies: Hx Dementia Psychiatric History: Reports: Hx Anxiety, Hx Depression Denies: Hx Panic Disorder - Cancer History Cancer Type, Location and Year: October 2017 - dx w/ pancreatic cancer w/ liver mets Hx Chemotherapy: Yes - started recently - Surgical History Surgery Procedure, Year, and Place: Cholecystectomy; Bilateral Carpal Tunnel PT NEEDS TO BE SCHEDULED AT MAIN [facility]AMP[facility]. BLOOD CLOT IN LEFT LEG NEEDS TO HAVE PORT ACCESSED. LSP Back and CSP surgery [facility] [place]. 2018 dental extraction. october 2017 - liver and pancreas biopsies Hx Anesthesia Reactions: No Infectious Disease History: No Infectious Disease History: Reports: Hx Hepatitis - hep c positive Denies: Traveled Outside the [place] in Last 30 Days - Family History Known Family History: Positive: Hypertension, Other - FMHX OF PANCREATIC CANCER , MOTHER - Social History Occupation: Disabled Alcohol Use: None Hx Substance Use: No Substance Use Type: Reports: Marijuana Substance Use Comment - Amount & Last Used: prescribed Hx Tobacco Use: Yes Smoking Status (MU): Heavy Every Day Tobacco Smoker Type: Cigarettes Amount Used/How Often: 10 cig per day Have You Smoked in the Last Year: Yes Review of Systems Constitutional: Negative Negative: Fever, Chills, Fatigue Eyes: Negative Negative: Photophobia, Blurred Vision, Diplopia ENT: Negative Negative: Epistaxis, Dental Pain Cardiovascular: Negative Negative: Chest Pain Respiratory: Negative Negative: Shortness Of Breath Positive: Abdominal Pain - wraps around his torso, Other - pancreatic CA - baseline incontinence. Negative: Vomiting, Diarrhea, Nausea Positive: no symptoms reported Positive: Decreased ROM - LE's "feel weaker" Positive: Weakness, Paresthesia - baseline - possibly some new in LE's? Psychological: Normal All Other Systems Reviewed And Are Negative: Yes Physical Exam Triage Information Reviewed: Yes Vital Signs On Initial Exam: Initial Vitals Temp Pulse Resp BP Pulse Ox 98.8 F 86 19 138/89 96 02/01/19 12:03 02/01/19 12:03 02/01/19 12:03 02/01/19 12:03 02/01/19 12:03 Vital Signs Reviewed: Yes Appearance: Positive: Well-Appearing, Well-Nourished, Pain Distress - mild to moderate Skin: Positive: Warm, Skin Color Reflects Adequate Perfusion, Dry - multiple areas of ecchymosis over ab - pt reports these are injection sites; no enrico injuries from fall (ie. no new lacs, abrasions, etc observed but pt has old scabs); Lt LE erythematuos with overlying scaling skin but no skin breakdown nor drainage/discharge Head/Face: Positive: Normal Head/Face Inspection - atraumatic Eyes: Positive: Normal, EOMI, KATHY, Conjunctiva Clear ENT: Positive: Hearing grossly normal, Pharynx normal - atraumatic, TMs normal - no hemotympanum Dental: Negative: Dental Fracture @ Neck: Positive: Supple, Nontender Respiratory/Lung Sounds: Positive: Breath Sounds Present Cardiovascular: Positive: RRR, Leg Edema Left - this leg is accompanied by erythema - pt reports this is baseline for him, Leg Edema Right, Other - pedal pulses are difficult to palpate d/t edema but cap refill < 2 secs and feet are warm to touch Abdomen Description: Positive: Nontender Bowel Sounds: Positive: Present Musculoskeletal: Positive: Strength/ROM Intact - FROM UE's, Limited @ - pt reports "weakness" when trying to raise LE's from stretcher against gravity - can move ankles, toes, gently bend knees; was witnessed briefly weight bearing when standing to urinate despite bed rest orders - required assistance, Pain @ - TTP over lower thoracic and all lumbar spinous pp Neurological: Positive: Sensory/Motor Intact - equal B/L in UE's; responds to pain stimulus in B/L soles of feet; no saddle paresthesia, Alert, Oriented to Person Place, Time, CN Intact II-III, Facial Symmetry, Speech Normal Psychiatric: Positive: Normal - [place] Coma Scale Best Eye Response: 4 - Spontaneous Best Motor Response: 6 - Obeys Commands Best Verbal Response: 5 - Oriented Coma Scale Total: 15 Diagnostics - Vital Signs Vital Signs Temp Pulse Resp BP Pulse Ox 02/01/19 15:54 78 150/69 100 02/01/19 15:52 80 98 02/01/19 14:44 82 100 02/01/19 14:13 16 02/01/19 13:37 82 139/89 100 02/01/19 13:07 78 146/66 98 02/01/19 13:00 80 99 02/01/19 12:37 82 133/67 98 02/01/19 12:07 83 134/77 98 02/01/19 12:06 84 97 02/01/19 12:03 98.8 F 86 19 138/89 96 - Laboratory Lab Results: Lab Results 02/01/19 02/01/19 02/01/19 Range/Units 14:11 14:11 14:11 WBC 1.8 L (3.5-10.8) 10^3/uL RBC 3.24 L (4.18-5.48) 10^6 /uL Hgb 10.3 L (14.0-18.0) g/dL Hct 30 L (42-52) % MCV 94 (80-94) fL MCH 32 H (27-31) pg MCHC 34 (31-36) g/dL RDW 18 H (10-15) % Plt Count 90 L (150-450) 10^3/uL MPV 8.8 (7.4-10.4) fL Neut % (Auto) 51.5 % Lymph % (Auto) 42.2 % [place] % (Auto) 5.1 % Eos % (Auto) 0.4 % Baso % (Auto) 0.8 % Absolute Neuts (auto) 0.9 L* (1.5-7.7) 10^3/ul Absolute Lymphs (auto) 0.8 L (1.0-4.8) 10^3/ul Absolute Monos (auto) 0.1 (0-0.8) 10^3/ul Absolute Eos (auto) 0.0 (0-0.6) 10^3/ul Absolute Basos (auto) 0.0 (0-0.2) 10^3/ul Absolute Nucleated RBC 0.0 10^3/ul Nucleated RBC % 0.2 Hem Pathologist Commnt Pending INR (Anticoag Therapy) 3.09 H (0.82-1.09) APTT 38.9 H (26.0-38.0) seconds Sodium 137 (135-145) mmol/L Potassium 3.9 (3.5-5.0) mmol/L Chloride 103 (101-111) mmol/L Carbon Dioxide 31 (22-32) mmol/L Anion Gap 3 (2-11) mmol/L BUN 14 (6-24) mg/dL Creatinine 0.53 L (0.67-1.17) mg/dL Est GFR ( Amer) 190.0 (>60) Est GFR (Non-Af Amer) 157.0 (>60) BUN/Creatinine Ratio 26.4 H (8-20) Glucose 226 H (70-100) mg/dL Calcium 7.6 L (8.6-10.3) mg/dL Magnesium 1.7 L (1.9-2.7) mg/dL Total Bilirubin 0.50 (0.2-1.0) mg/dL AST 57 H (13-39) U/L ALT 68 H (7-52) U/L Alkaline Phosphatase 954 H (34-104) U/L Total Protein 4.6 L (6.4-8.9) g/dL Albumin 2.6 L (3.2-5.2) g/dL Globulin 2.0 (2-4) g/dL Albumin/Globulin Ratio 1.3 (1-3) Result Diagrams: 02/01/19 14:11 02/01/19 14:11 Lab Statement: Any lab studies that have been ordered have been reviewed, and results considered in the medical decision making process. Re-Evaluation - Re-Evaluation First Eval Change: Improved - pain improved somewhat with 1mg dialudid - discussed that he' s due to his 100mg ER morphine and okayed pt to take his own home med as we do not have 100mg ER here. Second Eval Change: Unchanged - pt reports little to no change 1 hour after taking 100mg ER morphine so 1mg dilaudid was repeated as he is to go to MRI now - vitals were stable previously with this medication - also advised MRI team to monitor for respirations, etc and call if any concerns however pt is used to high doses of narcotics on a routine basis and has had stable vitals with meds thus far so risk of resp depression is low. Course/Dx - Course Course Of Treatment: Pt here w/ multiple falls past couple of days - concered about weakness and pain around his torso and weakness in LE's. He denies constitutional sx but given his immunocompromised status I ordered labs, CXR and U/A. CXR is w/o acute cardiopulm findings. U/A has not yet been processed. Labs are relevant to pt's previous labs however abs neutrophils are quite low (0.9%) - reports he f/u w/ oncology this week. Concerned about potential for further ALIE injury to spine w/ multiple falls in the face of no torso support which was recommended and pt failed to attain. Could also have spinal cord lesion(s) d/t mets worsening his sx of weakness. Spoke w/ Dr. Dyson who recommended CT and MRI of spine to assess for worsening pathology due to injury. Added contrast to MRI after speaking with Dr. Goins to also assess for potential advance of pancreatic cancer to bones/spinal cord. Signed out to Justin Adams PA-C, pending imaging. Pt in stable condition and on bed rest at time of transfer of care. Discussed plan with pt and son before transitioning care to [facility] and they voice understanding/agree w/ plan. Please call Dr. Dyson with findings. Pt has declined surgery today regardless of findings as he was too hungry to wait for results of spine images (he did wait for CT brain image which was neg for acute hemorrhage, shift, etc) and so was provided with sandwich as he was adamant he wanted to eat - he is aware this would postpone surgery if needed. He also has requested d/c home which if imaging reveals stable findings he may consider,especially given his CA status however he at least needs torso brace fitted this week, wheelchair for transportation and appointment with Dr. Dyson but advise pt based on neurosurg recommendations s/p updated imaging today (ie. may require admission but ultimately pt's choice, especially given his health status). If adamant about going home with severe injury/illness, consider VNS/hospice care consults. - Diagnoses Provider Diagnoses: Truncal muscle weakness, Lower extremity weakness, Frequent falls, Uncontrolled pain Discharge - Sign-Out/Discharge Documenting (check all that apply): Sign-Out Patient Signing out patient TO: Justin Adams - Discharge Plan Disposition: ADMITTED TO [facility] - Billing Disposition and Condition Disposition: Admitted to [facility]
[2019-02-01] MEDS ORDERED: Morphine TAB (NF) 15 MG TAB PO ONE (16:13)
--- NOTE | 2019-02-01 21:32 | PN ---
Progress Note - Progress Note Date of Service: 02/01/19 Note: Patient signed out to be by Robyn JARRETT pending results of lumbar and thoracic MRI. Imaging positive for new L1 compression fracture. Discussed patient with Dr. Johnson who recommended TLSO brace. No brace available at this time. Dr. Johnson subsequently recommends admission until brace can be obtained. Admitted in stable condition to hospitalist.
[2019-02-01] MEDS ORDERED: Ondansetron INJ* 2 MG/ML VIAL IV PRN (21:36)
[2019-02-01] MEDS ORDERED: Acetaminophen TAB* 325 MG PO PRN ×2 (21:36→22:07)
[2019-02-01] MEDS ORDERED: MORPHINE PO PRN (21:47)
[2019-02-01] MEDS ORDERED: Diphenoxylat/Atrop 2.5-0.025M* 1 TAB PO PRN (21:47)
[2019-02-01] MEDS: LORazepam TAB(*) 1 MG PO PRN (22:31)
[2019-02-02] MEDS: Gabapentin CAP(*) 300 MG PO SCH ×4 (00:26→20:39)
[2019-02-02] MEDS: risperiDONE TAB* 2 MG PO SCH ×2 (00:27→18:22)
[2019-02-02] MEDS: Cyclobenzaprine TAB* 10 MG PO SCH ×4 (00:27→20:39)
--- NOTE | 2019-02-02 02:20 | HP ---
CC: Dr. Hurst; Dr. Tristan Chambers * ADMISSION HISTORY AND PHYSICAL: DATE OF ADMISSION: 02/01/19 PRIMARY CARE PROVIDER: Dr. Hurst OUTPATIENT ONCOLOGIST: Dr. Tristan Chambers MY ATTENDING PHYSICIAN WHILE IN THE HOSPITAL: Dr. Louisa Spann * (DICTATED BY KOLBY WALLACE) CHIEF COMPLAINT: Increased back pain x1 day. HISTORY OF PRESENT ILLNESS: Mr. Matias is a 63-year-old male with past medical history significant for stage IV pancreatic cancer, multiple kidney stones, diabetes mellitus type 2, and provoked DVT, who presents to the emergency department after earlier today he fell and then had worsening back pain. The patient does have chronic back pain related to compression fractures. He states that the pain is in his middle back, radiates down both of his legs with movement, gets better with rest and not associated with any new numbness, tingling, or paresthesias. The patient denies any new weakness. The patient states that when he fell his legs gave out, but he falls frequently. He thinks that one of his legs is weaker than the other, but does not know which one. The patient does have neuropathy and lower extremity edema ever since his DVT which is not new and has not worsened. The patient was previously admitted to the hospital and recommended to have a TLSO brace in December 2018; however, the patient did sign out against medical advice. The patient has been undergoing chemotherapy every 2 weeks with oncology. The patient denies fevers, chills, chest pain, shortness of breath, nausea, vomiting, abdominal pain that does not radiate from his back. The patient states he has had minimal pain control from the morphine and Dilaudid that he had in the emergency department as well as his home medications of MS Contin and immediate release morphine. The patient has baseline bowel and bladder incontinence, which has not worsened. The patient in the emergency department had a CT of his lumbar and thoracic spine which showed interlaminar decompression deformity at L2 and then previously diagnosed compression deformities at T10, T11 and L4. This case was discussed with Dr. Willard of Neurosurgery who recommend admission to the hospital for TLSO brace and obtain x-rays. PAST MEDICAL HISTORY: 1. Stage IV pancreatic cancer, on chemotherapy. 2. Kidney stone. 3. Diabetes mellitus type 2. 4. Hypertension. 5. Provoked DVT. 6. Peripheral neuropathy. PAST SURGICAL HISTORY: 1. Carpal tunnel release. 2. Cholecystectomy. 3. Port placement. 4. Laminectomy. MEDICATIONS: Per medication reconciliation, the patient does not know his home meds. 1. Flexeril 10 mg p.o. t.i.d. 2. Famotidine 40 mg p.o. daily. 3. Benazepril 40 mg p.o. daily. 4. Medical marijuana 2 inhalations p.o. q.8 hours as needed. 5. Risperdal 2 mg p.o. q. p.m. 6. Metoprolol succinate 100 mg p.o. q.p.m. 7. Glipizide 5 mg p.o. daily. 8. Finasteride 5 mg p.o. daily. 9. Tamsulosin 2 mg p.o. daily. 10. Glargine 30 units subcu daily. 11. Dronabinol 2.5 mg p.o. daily as needed. 12. Amlodipine 10 mg p.o. daily. 13. Neurontin 600 mg p.o. t.i.d. 14. Morphine 30 mg p.o. q. 5 to 6 hours as needed. 15. Morphine sulfate extended release 100 mg p.o. daily. 16. Warfarin 5 mg p.o. daily. 17. Lomotil 1 tab p.o. as needed. 18. Lorazepam 1 mg p.o. at bedtime. 19. Lexapro 10 mg p.o. daily. ALLERGIES: CARBAMAZEPINE, SUNFLOWER OIL, LATEX, ADHESIVE TAPE, NALTREXONE AND SULFA. FAMILY HISTORY: The patient's mother in her 70s of pancreatic cancer, the patient's father at 75 of Alzheimer's. The patient has several siblings, past medical history unknown. SOCIAL HISTORY: The patient has approximately 50 pack year smoking. The patient does still smoke occasionally for relaxation purposes. The patient denies drinking alcohol. The patient does smoke medical marijuana. The patient used to work as a counselor. The patient is . He has 5 children. The patient surrogate decision maker will be his son Rodolfo. REVIEW OF SYSTEMS: The patient has lost approximately 40 pounds in the past 5 months. A 14-point review of systems was reviewed and negative except what is above in the HPI. PHYSICAL EXAMINATION GENERAL: The patient is a 63-year-old who appears stated age, sitting comfortably in bed, in no acute distress. VITAL SIGNS: At the time of evaluation, temperature 98.0, pulse rate 79, respiratory rate 16, oxygen saturation 100% on room air, blood pressure 161/79. HEENT: Normocephalic, atraumatic. Sclerae anicteric. No conjunctival injection. Nasal mucosa moist. Oral mucosa moist. No pharyngeal erythema, discharge, or exudate. NECK: Supple, nontender. No lymphadenopathy. No carotid bruits. No JVD. RESPIRATORY: Clear to auscultation bilaterally. No wheezes, rales or rhonchi. Good air exchange bilaterally. CARDIAC: Regular rate and rhythm. No clicks, murmurs, gallops, or rubs. ABDOMEN: Soft, nontender, tender to palpation throughout. No mass. No rebound or guarding. No hepatosplenomegaly. No abdominal bruits auscultated. No hepatojugular reflux. GENITOURINARY: No suprapubic tenderness. SKIN: Slight erythema in the bilateral lower extremities. No rash or ulcers. EXTREMITIES: Pulse is 2+ in the dorsalis pedis, posterior tibialis, and radial areas. 2+ bilateral lower extremity edema noted. NEUROLOGIC: Cranial nerves II through XII are intact. Diffuse weakness. No focality. Reflexes trace throughout. Pain with manipulation of either lower extremity. I performed straight leg raise test. DIAGNOSTIC STUDIES/LAB DATA: White blood cell count 11.8, hemoglobin 10.3, platelet count 90. INR is 3.09. PTT 38.9. Sodium 137, potassium 3.9, chloride 103, carbon dioxide 31, anion gap 3, BUN 14, creatinine 0.53, glucose 226, calcium 7.6, magnesium 1.7, bilirubin 0.5. AST is 57, ALT is 68, alkaline phosphatase is 954, protein 4.6, albumin 2.6, globulin 2.0. Chest x-ray read as no acute cardiopulmonary disease. Lumbar and thoracic spine CT read as, there has been interval compression deformity of L1 without osseous retropulsion or stable compression deformity of T10 and T11 with depression of superior endplate of L4, degenerative disease, osteoarthritis and osteopenia. Lumbar and thoracic MRIs are pending. IMPRESSION: Ms. Matias is a 63-year-old male with past medical history significant for stage IV pancreatic cancer, diabetes mellitus type 2, and provoked DVT who presents to the emergency department after a fall with significant worsening of his back pain, found to have a new L1 compression fracture and admits to the hospital for setting of a TLSO brace, pain control, and Neurosurgery consultation. 1. L1 compression fracture. The patient is having significant pain from this as well as significantly decreased ambulation. The patient is diffusely weak and this would be reason for his fall. The patient has no other focal neurologic deficits. The patient was seen in consultation by Dr. Willard who recommended a TLSO brace and subsequent upright standing films to ensure stability. He also recommended MRI of the thoracic and lumbar spine with contrast which is being performed at this time to assess for metastatic disease. Further intervention will be based on Neurosurgery recommendations. The patient does not have signs of cauda equina syndrome at this time. The patient's pain control is home morphine and Dilaudid for breakthrough pain. The patient had concern previously for osteomyelitis discitis. This could be further assessed on patient's MRI. The patient has no systemic symptoms and there is a low suspicion for this at this time. Antibiotics could be initiated if patient develops fevers, worsening pain or if there is signs of this on the MRI. 2. Diabetes mellitus type 2. Continue patient's home medications. 3. Metastatic pancreatic cancer, management per Oncology. Continue with chemotherapy per their recommendations. The patient is currently neutropenic, but showing no signs of infection. 4. Provoked deep venous thrombosis. The patient is currently slightly supratherapeutic on his Coumadin, he was very supratherapeutic 5 days ago. We will continue patient's Warfarin at this time and monitor his INR daily. 5. Hypertension. Continue patient's home medications of metoprolol and amlodipine. The patient is currently normotensive. 6. DVT prophylaxis: Coumadin as above. 6. FEN: The patient will have a heart-healthy diet without caffeine and fluids not indicated. TIME SPENT: Approximately 60 minutes was spent on this admission with the patient, 30 of which was spent [id number] with the patient obtaining both history and plan. The plan was discussed with my attending, Dr. Louisa Spann, and she is in agreement. KOBLY WALLACE [id number]/CPS #: [id number] MTDD
[2019-02-02] MEDS: Morphine ORAL.SOLN 10 mg* 2 MG/ML UDC 5 ml PO PRN ×3 (04:57→20:38)
[2019-02-02] MEDS ORDERED: Gabapentin CAP(*) 300 MG PO SCH (09:00)
[2019-02-02] MEDS ORDERED: Cyclobenzaprine TAB* 10 MG PO SCH (09:00)
[2019-02-02] MEDS: HYDROmorphone INJ1* 1 MG/ML SYRINGE IV SLOW PU PRN ×3 (09:27→16:24)
[2019-02-02] MEDS: Dronabinol CAP* 2.5 MG PO PRN ×2 (09:49→14:32)
[2019-02-02] MEDS: Tamsulosin CAP* 0.4 MG PO SCH (09:50)
[2019-02-02] MEDS: Insulin GLARGINE(*) 1 UNITS UNIT SUBCUT SCH (09:50)
[2019-02-02] MEDS: MORPHINE 100 MG PO SCH (09:51)
[2019-02-02] MEDS: glipiZIDE TAB* 5 MG PO SCH (09:51)
[2019-02-02] MEDS: amLODIPine TAB* 5 MG PO SCH (09:51)
[2019-02-02] MEDS: Finasteride TAB* 5 MG PO SCH (09:51)
[2019-02-02] MEDS: Escitalopram * 10 MG TAB PO SCH (09:51)
--- NOTE | 2019-02-02 10:32 | PN ---
Progress Note - Progress Note Date of Service: 02/02/19 SOAP: Subjective: []Frequent falls at home, legs "just give out." Admitted with new L2 compression fracture. Per admission note neurosurgery recommended TLSO, ordered. Prior T10, T11, & L4 compression fractures. Followed by pain clinic. Frustrated because meds aren't ordered how he takes them at home (ex: med rec lists gabapentin as 600 mg PO TID and he states that he takes this all at once qHS). Pain continues. Wants to go home because he uses marijuana for anxiety and pain management. Medications: Acetaminophen (Tylenol Tab*) 650 mg PO Q6H PRN PRN Reason: Mild Pain Amlodipine Besylate (Norvasc Tab*) 10 mg PO DAILY [facility] Last Admin: 02/02/19 09:51 Dose: 10 mg Cyclobenzaprine HCl (Flexeril Tab*) 10 mg PO TID [facility] Last Admin: 02/02/19 09:51 Dose: Not Given Diphenoxylate HCl/Atropine (Lomotil Tab*) 1 tab PO Q6H PRN PRN Reason: DIARRHEA Dronabinol (Marinol Cap*) 2.5 mg PO TID PRN PRN Reason: nausea/appetite Last Admin: 02/02/19 09:49 Dose: 2.5 mg Escitalopram Oxalate (Lexapro *) 10 mg PO DAILY [facility] Last Admin: 02/02/19 09:51 Dose: 10 mg Famotidine (Pepcid Tab*) 40 mg PO QPM [facility] Finasteride (Proscar Tab*) 5 mg PO DAILY [facility] Last Admin: 02/02/19 09:51 Dose: 5 mg Gabapentin (Neurontin Cap(*)) 600 mg PO TID [facility] Last Admin: 02/02/19 09:51 Dose: Not Given Glipizide (Glucotrol Tab*) 5 mg PO DAILY [facility] Last Admin: 02/02/19 09:51 Dose: 5 mg Hydromorphone HCl (Dilaudid Inj1s*) 1 mg IV SLOW PU Q4H PRN PRN Reason: SEVERE PAIN Last Admin: 02/02/19 09:27 Dose: 1 mg Insulin Glargine (Lantus(*)) 30 units SUBCUT DAILY [facility] Last Admin: 02/02/19 09:50 Dose: 30 units Lisinopril (Prinivil Tab*) 40 mg PO QPM [facility] Lorazepam (Ativan Tab(*)) 1 mg PO BEDTIME PRN PRN Reason: SLEEP/SPASMS/ANXIETY Last Admin: 02/01/19 22:31 Dose: 1 mg Metoprolol Succinate (Toprol Xl Tab*) 100 mg PO QPM [facility] Morphine Sulfate (Ms Contin(*)) 100 mg PO DAILY [facility] Last Admin: 02/02/19 09:51 Dose: 100 mg Morphine Sulfate (Morphine Oral.Soln 10 Mg*) 30 mg PO Q6H PRN PRN Reason: Moderate Pain Last Admin: 02/02/19 04:57 Dose: 30 mg Ondansetron HCl (Zofran Inj*) 4 mg IV Q6H PRN PRN Reason: NAUSEA Risperidone (Risperdal*) 2 mg PO QPM [facility] Last Admin: 02/02/19 00:27 Dose: 2 mg Tamsulosin HCl (Flomax Cap*) 0.8 mg PO DAILY [facility] Last Admin: 02/02/19 09:50 Dose: 0.8 mg Warfarin Sodium (Coumadin Tab(*)) 5 mg PO 1700 [facility]; Protocol Objective: [] Vital Signs Temp Pulse Resp BP Pulse Ox 98.0 F 83 12 155/84 100 02/02/19 03:15 02/02/19 03:15 02/02/19 09:51 02/02/19 03:15 02/02/19 03:15 A&Ox3, neuro grossly non-focal HRR, S1S2 LS clear +BS, abd. soft and non-tender +pedal edema Laboratory Results - last 24 hr 02/01/19 02/01/19 02/01/19 14:11 14:11 14:11 WBC 1.8 L RBC 3.24 L Hgb 10.3 L Hct 30 L MCV 94 MCH 32 H MCHC 34 RDW 18 H Plt Count 90 L MPV 8.8 Neut % (Auto) 51.5 Lymph % (Auto) 42.2 [place] % (Auto) 5.1 Eos % (Auto) 0.4 Baso % (Auto) 0.8 Absolute Neuts (auto) 0.9 L* Absolute Lymphs (auto) 0.8 L Absolute Monos (auto) 0.1 Absolute Eos (auto) 0.0 Absolute Basos (auto) 0.0 Absolute Nucleated RBC 0.0 Nucleated RBC % 0.2 INR (Anticoag Therapy) 3.09 H APTT 38.9 H Sodium 137 Potassium 3.9 Chloride 103 Carbon Dioxide 31 Anion Gap 3 BUN 14 Creatinine 0.53 L Est GFR ( Amer) 190.0 Est GFR (Non-Af Amer) 157.0 BUN/Creatinine Ratio 26.4 H Glucose 226 H Calcium 7.6 L Magnesium 1.7 L Total Bilirubin 0.50 AST 57 H ALT 68 H Alkaline Phosphatase 954 H Total Protein 4.6 L Albumin 2.6 L Globulin 2.0 Albumin/Globulin Ratio 1.3 Assessment: []63 yo male with pancreatic cancer s/p SBRT in November on palliative FOLFIRI with good disease control, however unfortunately he has been declining at home secondary to progressive weakness and falls now with new L2 compression fracture. Plan: []MRI L-T spine as ordered (unable to be completed last night) TLSO brace as ordered Cont. current pain meds, will need to f/u with pain clinic on d/c PT eval. and treat once TLSO in place
[2019-02-02 10:41] LABS: Urine Appearance Clear; Urine Bilirubin Negative (Negative); Urine Blood Negative (Negative); Urine Color Yellow; Urine Glucose Negative (Negative); Urine Ketones Negative (Negative); Urine Nitrite Negative (Negative); Urine Protein Negative (Negative); Urine Specific Gravity 1.014 (1.010-1.030); Urine Urobilinogen Negative (Negative)
--- NOTE | 2019-02-02 11:54 | CONS ---
CONSULTATION NOTE: DATE OF CONSULT: 02/02/19 HISTORY OF PRESENT ILLNESS: Ms. Matias is a 63-year-old male with history of stage IV prostate cancer, also liver and lymph node cancer. It was diagnosed a year ago. The patient has history of unsteady gait and has had multiple mechanical falls. Initially, he was seen by neurosurgery back in November 2017 and was diagnosed with compression fractures of the thoracic spine, T10 and T11. At that time, the patient was recommended to get a TLSO brace, but has not been able to follow up with that recommendation. He presents today at [facility] with complaint of increased low back pain from a post-mechanical fall he reports having 2 to 3 days ago. He denies loss of consciousness. He has noted increased back pain, mostly axial, with mild radicular symptoms. The patient denies loss of control of bladder or bowel. He has increased pain with standing and walking. Currently, he is undergoing radiation and chemotherapy. 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 He has a contrast study that has been evaluated. PREVIOUS MEDICAL HISTORY: Significant for prostate, lymph node and liver cancer. Also for BPH, diabetes, and DVT. PAST SURGICAL HISTORY: Reports C-spine surgery and lumbar spine surgery. HOME MEDICATIONS: 1. Insulin glargine 30 units subcu daily. 2. Gabapentin 600 mg p.o. t.i.d. 3. Finasteride 5 mg p.o. daily. 4. Famotidine 40 mg p.o. q.p.m. 5. Lexapro 10 mg p.o. daily. 6. Lovenox 100 mg subcu b.i.d. 7. Marinol 2.5 mg p.o. t.i.d. 8. Cyclobenzaprine 10 mg p.o. b.i.d. 9. Benazepril 40 mg p.o. q.4 hours. 10. Risperidone 2 mg p.o. q.p.m. 11. Glipizide 5 mg p.o. daily. 12. Amlodipine 10 mg p.o. daily. 13. Warfarin 5 mg p.o. 1700. 14. Flomax 2 mg p.o. daily. 15. Morphine 30 mg p.o. q.5 hours as needed for pain. 16. MS Contin 100 mg p.o. daily. 17. MS Contin 600 mg p.o. b.i.d. 18. Metoprolol succinate 100 mg p.o. q.p.m. 19. Medical marijuana 2 INH p.o. q.8 hours p.r.n. 20. Ativan 1 mg p.o. at bedtime p.r.n. SOCIAL HISTORY: Admits to smoking. Denies alcohol use. He uses medical marijuana. PHYSICAL EXAM: Vital Signs: Temperature is 98.0, pulse rate 83, respirations 18, O2 saturation 100% on room air, blood pressure 155/84. The patient is lying flat, slightly elevated in bed. Appears to be in some acute distress. Mood is calm. Neuro: GCS 15. Alert and oriented x3. EOMs intact. Negative pronator drift. Cranial nerves II through XII grossly intact. Upper extremity motor strength 5/5 bilaterally throughout. Lower extremity motor strength decreased at 4 to 4+/5 bilaterally secondary to pain. Sensation is intact to light touch throughout. ASSESSMENT: A 63-year-old male with history of malignancy of liver, lymph node , and prostate. Has history of compression fractures at T10 and T11, previously seen by neurosurgeon in November 2018, has increased low back pain; status post mechanical fall, has other compression fractures at L1 and L4. The patient is neurologically intact with no focal deficits. Has not been able to get a TLSO brace as recommended from his first series of compression fractures and is not following up with neurosurgery as recommended. PLAN: 1. Get contrast studies of lumbar spine and thoracic spine, MRI series. 2. Get the patient fitted for TLSO brace. 3. Have the patient do upright standing x-rays and brace after MRI has been completed and reviewed. 4. Follow up with the patient in neurosurgery clinic within 2 weeks. [id number]/[facility] #: [id number] FLAVIO
[2019-02-02] MEDS ORDERED: Gadoteridol* (CONTRAST) 279.3 MG/ML 10 ML IV ONE (13:25)
[2019-02-02] MEDS: LORazepam TAB(*) 1 MG PO PRN (14:30)
[2019-02-02] MEDS ORDERED: Warfarin TAB(*) 5 MG PO SCH (17:00)
[2019-02-02] MEDS ORDERED: Famotidine TAB* 20 MG PO SCH (18:00)
[2019-02-02] MEDS ORDERED: Lisinopril TAB* 10 MG PO SCH (18:00)
[2019-02-02] MEDS ORDERED: risperiDONE TAB* 2 MG PO SCH (18:00)
[2019-02-02] MEDS ORDERED: Metoprolol Succinate XL TAB* 100 MG PO SCH (18:00)
--- NOTE | 2019-02-02 21:45 | CONS ---
CONSULTATION NOTE: DATE OF CONSULT: 02/02/19 HISTORY OF PRESENT ILLNESS: The patient is a very pleasant 63-year-old gentleman with a past medical history of stage IV pancreatic cancer, multiple kidney stones, diabetes, and DVT, who has a history of lumbar surgery by Dr. Gamble and anterior cervical diskectomy in the past. The patient had sustained a fall in the past and was diagnosed with T10, T11, L2, and L3 fracture. The patient was treated conservatively with a brace at that time, but the patient did not wear the brace. He returned to the emergency room after a possible worsening of his back pain. The patient denies any recent falls. The patient reports that he has no weakness, numbness or tingling of his extremities. He reports that he is able to ambulate, but pain makes things somewhat more difficult. The patient reports that he has baseline incontinence after the onset of chemotherapy. Of note, the patient signed out against medical advice in December 2018 and did not wear the brace. The patient had CT scan and MRI imaging consistent with a new L1 superior endplate fracture and for this reason, we were requested to see the patient. PAST MEDICAL HISTORY: 1. Pancreatic cancer, stage IV. 2. Kidney stones. 3. Diabetes. 4. Hypertension. 5. DVT. 6. Peripheral neuropathy. PAST SURGICAL HISTORY: 1. Carpal tunnel release. 2. Cholecystectomy. 3. Laminectomy. 4. Port placement. MEDICATIONS: The patient was on: 1. Flexeril. 2. Famotidine. 3. Benazepril. 4. Medical marijuana. 5. Risperdal. 6. Metoprolol. 7. Glipizide. 8. Finasteride. 9. Tamsulosin. 10. Glargine. 11. Dronabinol. 12. Amlodipine. 13. Neurontin. 14. Morphine. 15. Warfarin. 16. Lomotil. 17. Lorazepam. 18. Lexapro. ALLERGIES: CARBAMAZEPINE, SUNFLOWER, LATEX, ADHESIVE TAPE, NALTREXONE, and SULFA. FAMILY HISTORY: Pancreatic cancer, Alzheimer's. SOCIAL HISTORY: Tobacco, occasionally. Alcohol, negative. Recreational drugs , negative, but the patient does smoke medical marijuana. PHYSICAL EXAMINATION: The patient is not in any acute distress. He is awake, alert, oriented x3. His pupils are equal and reactive. Cranial nerves II through XII are grossly intact. Motor 4 to 5/5 in all extremities. Sensory grossly intact to light touch. Deep tendon reflexes 1+ bilaterally. No clonus. No Babinski. Korey's negative. Straight leg test negative in the sitting position. The patient has no tenderness to palpation of the thoracic and lumbar spine. He has free range of motion of the cervical spine. DIAGNOSTIC STUDIES/LAB DATA: The patient had a CT scan of the brain revealing no acute intracranial pathology. The patient had a CT scan of the thoracic spine and a CT scan of the lumbar spine revealing chronic compression fractures of T10 and T11 as well as compression deformity of L4 and L3 with new acute compression fractures of superior endplate of L1. The patient had MRI with contrast of the thoracic and lumbar spine that did not reveal any enhancement. There is an area of increased signal on the right quadratus lumborum area that is similar with the previous MRI from 12/21/18. ASSESSMENT: The patient is a very pleasant 63-year-old gentleman with history of pancreatic cancer, kidney stones, diabetes mellitus, deep venous thrombosis, who was on Coumadin, chemotherapy with a known T10, T11, L3 and L4 fractures, who now presents with an acute L1 compression fracture. PLAN: The patient at this point has done quite well. He has been treated with a TLSO brace. We will recommend upright standing x-rays and if the alignment of his thoracolumbar spine is maintained, then conservative treatment will be the best option. We will be happy to see him in approximately 2 weeks in our office with a new x-ray of his thoraco-lumbar spine. We will also advise for osteoporosis assessment. In regards to his lesion at the quadratus lumborum, I will defer this to the primary team and the oncology team. Thank you very much for allowing us to participate in the care of this patient. Please do not hesitate to contact our office in case you have any further questions or concerns regarding the care of this patient. Discussed extensively with the patient the current plan. The patient is agreeable with the plan but would like go home as soon as possible. [id number]/[facility] #: [id number] MTDD
[2019-02-03] MEDS: Morphine ORAL.SOLN 10 mg* 2 MG/ML UDC 5 ml PO PRN ×2 (03:38→11:46)
[2019-02-03] MEDS: HYDROmorphone INJ1* 1 MG/ML SYRINGE IV SLOW PU PRN (08:19)
[2019-02-03] MEDS: amLODIPine TAB* 5 MG PO SCH (08:20)
[2019-02-03] MEDS: Tamsulosin CAP* 0.4 MG PO SCH (08:20)
[2019-02-03] MEDS: MORPHINE 100 MG PO SCH (08:21)
[2019-02-03] MEDS: Finasteride TAB* 5 MG PO SCH (08:22)
[2019-02-03] MEDS: Cyclobenzaprine TAB* 10 MG PO SCH (08:22)
[2019-02-03] MEDS: Gabapentin CAP(*) 300 MG PO SCH (08:22)
[2019-02-03] MEDS: Escitalopram * 10 MG TAB PO SCH (08:22)
[2019-02-03] MEDS: glipiZIDE TAB* 5 MG PO SCH (08:22)
[2019-02-03] MEDS: Insulin GLARGINE(*) 1 UNITS UNIT SUBCUT SCH (08:23)
[2019-02-03 10:00] LABS: INR 3.82 (0.82-1.09)
[2019-02-03 10:55] LABS: ABS Eosinophils 0.1 10^3/ul (0-0.6); ABS Lymphocytes 1.2 10^3/ul (1.0-4.8); ABS Monocytes 0.3 10^3/ul (0-0.8); ABS Neutrophils 1.8 10^3/ul (1.5-7.7); Eosinophil % 3.7 %; Hematocrit 35 % (42-52); Hemoglobin 11.7 g/dL (14.0-18.0); Lymphocyte % 35.6 %; Mean Corpuscular HGB Conc 33 g/dL (31-36); Mean Corpuscular Hemoglobin 31 pg (27-31); Mean Corpuscular Volume 94 fL (80-94); Mean Platelet Volume 8.6 fL (7.4-10.4); Nucleated Red Blood Cells % 0.4; Platelet Count 103 10^3/uL (150-450); Red Blood Count 3.76 10^6 /uL (4.18-5.48); Red Cell Distribution Width 17 % (10-15); White Blood Count 3.4 10^3/uL (3.5-10.8)
[2019-02-03 12:38] LABS: Albumin 2.8 g/dL (3.2-5.2); Albumin/Globulin Ratio 1.2 (1-3); BUN/Creatinine Ratio 14.5 (8-20); Calcium 8.4 mg/dL (8.6-10.3); EGFR African American 158.5 (>60); Globulin 2.3 g/dL (2-4); Magnesium 1.7 mg/dL (1.9-2.7); Potassium 3.9 mmol/L (3.5-5.0); Total Bilirubin 0.5 mg/dL (0.2-1.0); Total Protein 5.1 g/dL (6.4-8.9)
[2019-02-03 12:44] VITALS: BP 118/68
== END 2019-02-03 15:45 | disposition home health service (06) | DRG 347 ==
LOC: ED 11:58 → MED 21:40 → OBSVTOIN 02-02 09:00 → MED 02-02 19:27
PROVIDERS: ADMIT Internal Medicine; ATTEND Internal Medicine Hematology & Oncology
DX: S32.019A Unspecified fracture of first lumbar vertebra, initial encounter for closed fracture (principal); C25.9 Malignant neoplasm of pancreas, unspecified; D70.9 Neutropenia, unspecified; W18.30XA Fall on same level, unspecified, initial encounter; E11.9 Type 2 diabetes mellitus without complications; R15.9 Full incontinence of feces; G62.9 Polyneuropathy, unspecified; F17.210 Nicotine dependence, cigarettes, uncomplicated; I10 Essential (primary) hypertension; R79.1 Abnormal coagulation profile; N40.1 Benign prostatic hyperplasia with lower urinary tract symptoms; N39.498 Other specified urinary incontinence; Y92.9 Unspecified place or not applicable; Z79.891 Long term (current) use of opiate analgesic; Z79.899 Other long term (current) drug therapy; Z91.040 Latex allergy status; Z88.2 Allergy status to sulfonamides; Z91.81 History of falling; Z88.8 Allergy status to other drugs, medicaments and biological substances; Z91.018 Allergy to other foods; Z91.048 Other nonmedicinal substance allergy status; Z86.718 Personal history of other venous thrombosis and embolism; Z80.0 Family history of malignant neoplasm of digestive organs; Z79.01 Long term (current) use of anticoagulants; Z87.442 Personal history of urinary calculi; Z85.46 Personal history of malignant neoplasm of prostate; Z85.05 Personal history of malignant neoplasm of liver; Z79.84 Long term (current) use of oral hypoglycemic drugs
CPT/HCPCS: 36415; 70450; 71045; 72128; 72131; 72157; 72158; 80053; 81003; 83735; 85025; 85060; 85610; 85730; 99232; 99284; A9270-GY; A9579; G8978-GP-CK; G8979-GP-CI; J1170; J1642; J2405

== ENCOUNTER 2019-02-17 12:47 | Inpatient (IN) | payer MEDICAID ==
[2019-02-17] MEDS ORDERED: Dronabinol CAP* 2.5 MG PO PRN (13:27)
[2019-02-17] MEDS ORDERED: LORazepam TAB(*) 1 MG PO PRN (13:27)
[2019-02-17] MEDS ORDERED: Dextrose 50% VIAL 50 ml IV PUSH PRN (13:35)
[2019-02-17] MEDS ORDERED: Vancomycin(*) 1,000 MG in NS 0.9% 250 ML* 250 ML IVPB ONE (13:39)
[2019-02-17] MEDS: Gabapentin CAP(*) 300 MG PO SCH ×2 (16:16→21:29)
[2019-02-17] MEDS: Cyclobenzaprine TAB* 10 MG PO SCH ×2 (16:16→21:30)
[2019-02-17] MEDS: MORPHINE 100 MG PO SCH ×2 (16:16→21:30)
[2019-02-17] MEDS: Famotidine TAB* 20 MG PO SCH (16:17)
[2019-02-17] MEDS: Lisinopril TAB* 10 MG PO SCH (16:17)
[2019-02-17] MEDS: Metoprolol Succinate XL TAB* 100 MG PO SCH (16:17)
--- NOTE | 2019-02-17 16:27 | CONSULT ---
Subjective Date of Service: 02/17/19 Interval History: Mr. Matias is a 63 yo male with PMH significant for stage 4 pancreatic cancer on chemotherapy, renal calculi, DM2, HTN, provoked DVT, and peripheral neuropathy; who presented to the hospital with concern for left LE cellulitis. He was recently hospitalized from 02/01/19 to 02/03/19 for a L1 compression fracture, weakness, and falls. Patient presented to the hospital with unstagable pressure injuries to bilateral heels. He reports that the wounds have been present for a few weeks to a month, but they were not documented during the previous admission about 2 weeks ago. He reports caring for the wounds at home by washing the feet with normal saline. Patient seen and examined at bedside. Family History: Unchanged from Admission Social History: Unchanged from Admission Past Medical History: Unchanged from Admission Review of Systems - Measurements Intake and Output: Intake and Output Last 24 Hours 02/15/19 02/16/19 02/17/19 02/18/19 06:59 06:59 06:59 06:59 Weight 224 lb 4.8 oz - Review of Systems Constitutional Symptoms: Negative: Fever, Other - Chills Dermatology: Positive: Other - Skin breakdown to bilateral heels Endocrinology: Positive: Diabetes Mellitus Objective Active Medications: Amlodipine Besylate (Norvasc Tab*) 10 mg PO DAILY [facility] Cyclobenzaprine HCl (Flexeril Tab*) 10 mg PO TID [facility] Dextrose (Dextrose 50% Vial 50 Ml*) 25 ml IV PUSH .FOR FS < 60 - SS PRN Reason : FS < 60 Dronabinol (Marinol Cap*) 2.5 mg PO TID PRN Reason: nausea/appetite Escitalopram Oxalate (Lexapro *) 10 mg PO DAILY [facility] Famotidine (Pepcid Tab*) 40 mg PO QPM [facility] Finasteride (Proscar Tab*) 5 mg PO DAILY [facility] Gabapentin (Neurontin Cap(*)) 600 mg PO TID [facility] Glipizide (Glucotrol Tab*) 5 mg PO DAILY [facility] Insulin Glargine (Lantus(*)) 30 units SUBCUT DAILY [facility] Insulin Human Lispro (Humalog*) 0 units SUBCUT ACHS [facility]; Protocol Lisinopril (Prinivil Tab*) 40 mg PO QPM [facility] Lorazepam (Ativan Tab(*)) 1 mg PO BEDTIME PRN Reason: SLEEP/SPASMS/ANXIETY Metoprolol Succinate (Toprol Xl Tab*) 100 mg PO QPM [facility] Morphine Sulfate (Morphine Oral.Soln 10 Mg*) 30 mg PO Q6H PRN Reason: PAIN Morphine Sulfate (Ms Contin(*)) 100 mg PO TID [facility] Risperidone (Risperdal*) 2 mg PO QPM [facility] Tamsulosin HCl (Flomax Cap*) 0.8 mg PO DAILY [facility] Vital Signs 02/17/19 02/17/19 14:15 16:16 Temperature 98.2 F Pulse Rate 76 Respiratory 18 16 Rate Blood Pressure 121/69 (mmHg) O2 Sat by Pulse 99 Oximetry Oxygen Devices in Use Now: None Appearance: NAD, laying in bed Ears/Nose/Mouth/Throat: Mucous Membranes Moist Respiratory: Symmetrical Chest Expansion and Respiratory Effort Skin: - - See skin note below Neurological: Alert and Oriented x 3 Nutrition: Taking PO's Result Diagrams: 02/22/19 05:20 02/22/19 05:20 Additional Lab and Data: Above labs pulled into the note when the note was edited prior to signing. See labs from day of consultation below. Laboratory Tests 02/17/19 02/17/19 09:36 09:36 WBC 15.6 H Hgb 11.3 L Hct 35 L Plt Count 254 Sodium 138 Potassium 4.1 Chloride 102 Carbon Dioxide 31 BUN 20 Creatinine 0.63 L Glucose 128 H Total Protein 5.4 L Albumin 2.5 L Skin Deviation Note - Skin Deviation Findings Right lateral heel - There is a wound measuring 6.5 cm x 10.5 cm x 0.1 cm total. There is loose skin present, with a maggot noted under the skin flap. The wound bed is intact skin with no drainage noted. There is serous drainage noted from under the skin flap. The surrounding skin is intact. The heel is boggy. Left medial heel -There is a wound that measures 12 cm x 14 cm in total area ( including area seen in the picture below). There is a small opening in the heel with pink tinged purulent drainage. The heel is boggy. The surrounding skin is intact. The left lower leg with erythema. Left heel - There is an area of deep purple discoloration. See above for measurements of the total wound. Assessment/Plan: Mr. Matias is a 63 yo male with PMH significant for stage 4 pancreatic cancer on chemotherapy, renal calculi, DM2, HTN, provoked DVT, and peripheral neuropathy; who presented to the hospital with concern for left LE cellulitis. He was recently hospitalized from 02/01/19 to 02/03/19 for a L1 compression fracture, weakness, and falls. 1. Bilateral heel deep tissue injuries. The right LE the skin is peeling off with healed skin underneath. There was a maggot noted in this wound bed underneath the area of peeling skin at the time of consultation. Recommend washing bilateral LEs with soap and water and applying a dry dressing. The patient should have a general surgery consult for debridement of the right heel and possible bedside wound exploration on the left. Should consider ABIs to evaluate LE circulation. 2. Left lower leg cellulitis. Management per primary medicine team. 3. DM2 with peripheral neuropathy. HgA1C was 10.7 in September of 2017. Consider rechecking a HgA1C. Maintain good glycemic control to allow for wound healing. 4. Diet. Consistent carbohydrate diet. 5. Code Status. Full Code. 6. Disposition. Inpatient, disposition per primary medicine team. TIME SPENT: Time for this wound consultation was 30 minutes and 20 minutes was spent with the patient discussing past medical history; assessing, measuring, and photographing the wounds. Wound Problem/Plan Is Patient a Wound Clinic Patient: No Attending: Leticia Pederson
[2019-02-17] MEDS: Insulin LISPRO* 1 UNITS UNIT SUBCUT SCH ×2 (16:54→21:30)
[2019-02-17] MEDS: risperiDONE TAB* 2 MG PO SCH (21:36)
[2019-02-18 06:18] LABS: INR 5.18 (0.82-1.09)
[2019-02-18] MEDS: Insulin LISPRO* 1 UNITS UNIT SUBCUT SCH ×4 (07:37→21:04)
[2019-02-18] MEDS: Morphine ORAL.SOLN 10 mg* 2 MG/ML UDC 5 ml PO PRN ×2 (08:30→14:58)
[2019-02-18] MEDS: MORPHINE 100 MG PO SCH ×3 (08:31→22:42)
[2019-02-18] MEDS: Tamsulosin CAP* 0.4 MG PO SCH (08:31)
[2019-02-18] MEDS: Gabapentin CAP(*) 300 MG PO SCH ×3 (08:31→20:49)
[2019-02-18] MEDS: Cyclobenzaprine TAB* 10 MG PO SCH ×3 (08:31→20:49)
[2019-02-18] MEDS: glipiZIDE TAB* 5 MG PO SCH (08:32)
[2019-02-18] MEDS: Escitalopram * 10 MG TAB PO SCH (08:32)
[2019-02-18] MEDS: amLODIPine TAB* 5 MG PO SCH (08:32)
[2019-02-18] MEDS: Finasteride TAB* 5 MG PO SCH (08:32)
[2019-02-18] MEDS: Insulin GLARGINE(*) 1 UNITS UNIT SUBCUT SCH (08:35)
[2019-02-18] MEDS ORDERED: Vancomycin(*) 1,500 MG in NS 0.9% 250 ML* 250 ML IVPB ONE (17:00)
[2019-02-18] MEDS: Lisinopril TAB* 10 MG PO SCH (18:01)
[2019-02-18] MEDS: Famotidine TAB* 20 MG PO SCH (18:01)
[2019-02-18] MEDS: Metoprolol Succinate XL TAB* 100 MG PO SCH (18:01)
[2019-02-18] MEDS ORDERED: Zosyn per Pharmacy* NOTE FOLLOW UP SCH (20:00)
[2019-02-18] MEDS: risperiDONE TAB* 2 MG PO SCH (20:50)
[2019-02-18] MEDS ORDERED: Piperacillin/Tazobac ADVAN(*) 3.375 GM in NS 0.9% 100 ML* 100 ML IVPB ONE (21:00)
[2019-02-18] MEDS ORDERED: Naloxone* 0.4 MG/ML 1 ML VIAL ONE (21:12)
--- NOTE | 2019-02-18 22:10 | CONS ---
CONSULTATION REPORT: DATE OF ADMISSION: 02/17/19 DATE OF CONSULTATION: 02/18/19 PRIMARY CARE PROVIDER: Dr. Michael Hurst. PROVIDER REQUESTING CONSULTATION: Dr. Tristan Chambers. CONSULTING SERVICE: Infectious Disease. PROVIDER: Tiffany Melgar NP ATTENDING PROVIDER: Dr. Arnol Roberts.* (DICTATED BY TIFFANY MELGAR NP) REASON FOR CONSULTATION: Left lower extremity cellulitis with bilateral lower extremity wounds. IMPRESSION: 1. Left lower extremity cellulitis. The patient is noted to have significant edema in this leg in addition to some venous changes. He has a deep tissue injury to the heel. Wound culture has been obtained. He is afebrile. He had leukocytosis on admission. No repeat CBC today. He has been on vancomycin. 2. Right heel deep tissue injury. He has what appears to be a blister unroofing. The wound bed that is able to be visualized appears to be healed skin underneath. No sign of infection in this foot. Cultures have been obtained and are pending. 3. Diabetes mellitus type 2. Last hemoglobin was 10.7. Blood sugars have been fairly well controlled while here with a glucose of 118 to 152. 4. Stage 4 pancreatic cancer. 5. Transaminitis. This is actually improved from previous labs. RECOMMENDATIONS: Recommend continuing vancomycin while we await culture results of the wound cultures. Wound care as previously instructed. Recommend keeping bilateral legs elevated to assist with edema management. We will continue to follow along. Further recommendations will be based on his clinical course. HISTORY OF PRESENT ILLNESS: Mr. Matias is a 63-year-old male with past medical history significant for arthritis; diabetes mellitus type 2; hepatitis C, status post treatment; hypertension; seizure disorder; DVT; who was seen by Dr. Chambers yesterday as an outpatient with complaints of right upper quadrant abdominal pain for several weeks. He recently was found to have pancreatic mass and stage 4 pancreatic cancer. He was recently hospitalized after a fall for an L1 compression fracture with recommendations from Neurosurgery for TLSO brace that he was using intermittently. His son has been assisting with lifts and transfers at home since his discharge. Over the course of the last few weeks, he noticed pain in his left foot and drainage from a large blisters on his heels. Due to worsening of the blisters on his heels and redness and warmth of his left calf, he was sent to the hospital as a direct admission for cellulitis and wound management. While in the hospital, he has been afebrile. Labs as an outpatient yesterday with a white blood cell count of 15.6. He reports pain in both heels with the left worse than the right. He has been washing the heels with saline at home. He denies fevers, chills, shortness of breath, joint pain, muscle pain other than the pain in his lower extremities, nausea, vomiting, diarrhea, abdominal pain, urinary symptoms, rash, recent travel. PAST MEDICAL HISTORY: 1. Arthritis. 2. Stage 4 pancreatic cancer. 3. Diabetes mellitus type 2. 4. Hepatitis C, status post treatment, most recently in 2013. 5. Hypertension. 6. Kidney stones. 7. Seizure disorder. 8. DVT. 9. Peripheral neuropathy. PAST SURGICAL HISTORY: 1. Status post removal of colon polyps. 2. Status post cholecystectomy. 3. Status post carpal tunnel repair. 4. Status post decompressive lumbar laminectomy at L3-4 and L4-5. 5. Status post port placement. 6. Status post anterior cervical diskectomy and fusion at C5-6 with anterior instrumentation. MEDICATIONS: Home medications: 1. Acetaminophen 650 mg by mouth every 6 hours as needed for pain. 2. Akynzeo 300 mg-0.5 mg capsule, take as directed. 3. Amlodipine 10 mg by mouth daily. 4. Cephalexin 500 mg by mouth 2 times daily. 5. Cyclobenzaprine 10 mg by mouth 3 times daily. 6. Dexamethasone 4 mg by mouth, take as directed. 7. Dronabinol 2.5 mg, take 1 tablet by mouth with meals as needed. 8. Escitalopram 10 mg by mouth daily. 9. Famotidine 40 mg by mouth daily. 10. Finasteride 5 mg by mouth daily. 11. Gabapentin 600 mg by mouth 3 times daily. 12. Glipizide 5 mg by mouth daily. 13. Lantus insulin 30 units subcutaneous daily. 14. Lisinopril 40 mg by mouth daily. 15. Lomotil 1 tablet by mouth every 4 hours as needed for diarrhea. 16. Morphine sulfate 100 mg by mouth daily. 17. Morphine sulfate 30 mg by mouth as directed. 18. Morphine sulfate ER 90 mg by mouth twice daily. 19. Multivitamin 1 tablet by mouth daily. 20. Zofran 4 mg by mouth every 4 hours as needed for nausea. 21. Risperidone 2 mg by mouth daily. 22. Tamsulosin 0.8 mg by mouth daily at bedtime. 23. Toprol-XL 100 mg by mouth daily. 24. Warfarin as directed. Hospital medications: 1. Norvasc 10 mg by mouth daily. 2. Cyclobenzaprine 10 mg by mouth 3 times daily. 3. Dextrose 25 mL IV push for glucose less than 60 as needed. 4. Dronabinol 2.5 mg by mouth 3 times daily as needed for nausea and appetite stimulation. 5. Lexapro 10 mg by mouth daily. 6. Pepcid 40 mg by mouth every evening. 7. Finasteride 5 mg by mouth daily. 8. Gabapentin 600 mg by mouth 3 times daily. 9. Glipizide 5 mg by mouth daily. 10. Lantus insulin 30 units subcu daily. 11. Humalog insulin sliding scale subcutaneous with meals and at bedtime. 12. Lisinopril 40 mg by mouth every evening. 13. Lorazepam 1 mg by mouth daily at bedtime as needed for sleep, anxiety, or spasms. 14. Metoprolol succinate 100 mg by mouth every evening. 15. Morphine sulfate 30 mg by mouth every 6 hours as needed for pain. 16. MS Contin 100 mg by mouth 3 times daily. 17. Risperidone 2 mg by mouth every evening. 18. Tamsulosin 0.8 mg by mouth daily. ALLERGIES: CARBAMAZEPINE, SUNFLOWER OIL, LATEX, ADHESIVE TAPE, NALTREXONE, and SULFA, reports unable to take due to his liver issues. FAMILY HISTORY: Mother at age 70 from pancreatic cancer. Father at age 75 from Alzheimer's. Son with a history of diabetes. SOCIAL HISTORY: He is a former smoker, smoking 1 pack a day for approximately 50 years. He is a former alcoholic, but denies alcohol use at this time. He uses marijuana for symptom management. REVIEW OF SYSTEMS: I performed a 10-point review of systems. All the pertinent positives and negatives are mentioned in the history of present illness. The remaining review of systems are negative. PHYSICAL EXAMINATION: Vital Signs: Temperature 97.4, heart rate 68, respiratory rate 18, O2 sat 97% on room air, blood pressure 87/52. General Appearance: The patient is lethargic, appears to be in no acute distress. Head : Normocephalic, atraumatic. Pupils: Equal and reactive to light. Extraocular movements are intact. Moist mucous membranes. Neurological: Cranial nerves II through XII are grossly intact. He has generalized weakness. He moves all extremities. He is lethargic and oriented. Cardiovascular: Regular rate and rhythm. No murmurs, rubs, or gallops heard. Respiratory: No accessory muscle use. The lungs are clear to auscultation. Abdomen: Bowel sounds positive. Abdomen soft, nontender, nondistended. Extremities: He is noted to have 3+ edema to bilateral lower extremities. His left lower extremity has redness up to the calf. He also is noted to have venous stasis changes to the leg with warmth. The medial aspect of the heel has dry dark- colored tissue. The left heel is boggy to palpation. The right heel is also boggy with what appears to be deep tissue injury in the lateral aspect of the heel with what appears to be an open blister. DIAGNOSTIC STUDIES/LAB DATA: CBC from yesterday: White blood cell count 15.6, hemoglobin 11.3, hematocrit 35, platelet count 254. CMP from yesterday: Sodium 138, potassium 4.1, chloride 102, CO2 of 31, BUN 20, creatinine 0.63, glucose 128. AST 50, ALT 63. Please see impression and recommendations outlined above. Recommendations have been discussed with Dr. Chambers. Thank you for asking us to see Mr. Matias in consultation. The case has been discussed with my attending, Dr. Arnol Roberts, who agrees with the plan of care. Reviewed by CODIE LIN 02/21/19 2144 [id number]/[facility] #: [id number] [facility]
[2019-02-18] MEDS ORDERED: Vancomycin per Pharmacy* NOTE FOLLOW UP PRN (22:26)
--- NOTE | 2019-02-18 23:25 | PRO ---
PROVIDER: Erica Melgar NP (Attending provider Dr. Marino Pederson) PERSONAL BANKING ASSISTANT: Supervised by KOLBY Anthony ANESTHESIA: None. PRE-PROCEDURE DIAGNOSIS: Skin desquamation of the right heel with associated deep tissue injury. PROCEDURE: Right lateral heel debridement. ESTIMATED BLOOD LOSS: None. SPECIMEN: None. FINDINGS: The patient was noted to have a deep tissue injury with a blister requiring unroofing. PROCEDURE: No local anesthetic was needed for this procedure. Total area of tissue injury on the right lateral heel measured 6.5 cm x 10.5 cm and x 0.1 cm yesterday with area of desquamation noted. A time out was performed after consent from the patient. Using a pair of surgical scissors, the necrotic tissue was debrided from the lateral and plantar aspect of the right heel. The total area of tissue removed was approximately 6.5 cm x 7 cm. After unroofing the wound, this revealed pale pink moist granulation tissue with an area approximately 1.5 to 2 cm x 1.5 to 2 cm area of dark-purplish colored tissue. The heel was noted to be boggy. There was no drainage and no bleeding during the procedure. The patient tolerated the procedure well, and a dressing was applied at the completion of the procedure. Reviewed by CODIE LIN 02/23/19 1708 [id number]/[facility] #: [id number] [facility]
[2019-02-19] MEDS ORDERED: ZOSYN 3.375 GM Q8H per EXTENDED INFUSION IVPB SCH ×2 (03:30)
[2019-02-19] MEDS: Morphine ORAL.SOLN 10 mg* 2 MG/ML UDC 5 ml PO PRN ×2 (04:59→20:50)
[2019-02-19] MEDS ORDERED: Vancomycin(*) 1,500 MG in NS 0.9% 250 ML* 250 ML IVPB SCH (06:00)
[2019-02-19 06:28] LABS: Hematocrit 29 % (42-52); Hemoglobin 9.8 g/dL (14.0-18.0); Mean Corpuscular HGB Conc 33 g/dL (31-36); Mean Corpuscular Hemoglobin 30 pg (27-31); Mean Corpuscular Volume 91 fL (80-94); Mean Platelet Volume 7.7 fL (7.4-10.4); Platelet Count 163 10^3/uL (150-450); Red Blood Count 3.22 10^6 /uL (4.18-5.48); Red Cell Distribution Width 18 % (10-15); White Blood Count 9.9 10^3/uL (3.5-10.8)
[2019-02-19 06:31] LABS: ABS Basophils 0.1 10^3/ul (0-0.2); ABS Eosinophils 0.1 10^3/ul (0-0.6); ABS Monocytes 1.2 10^3/ul (0-0.8); ABS Neutrophils 7.6 10^3/ul (1.5-7.7)
[2019-02-19 06:36] LABS: INR 4.09 (0.82-1.09)
[2019-02-19 06:56] LABS: Eosinophil % 0.7 %; Lymphocyte % 10.4 %
[2019-02-19] MEDS: Insulin LISPRO* 1 UNITS UNIT SUBCUT SCH ×4 (08:15→22:40)
[2019-02-19] MEDS: glipiZIDE TAB* 5 MG PO SCH (08:30)
[2019-02-19] MEDS: amLODIPine TAB* 5 MG PO SCH (08:30)
[2019-02-19] MEDS: MORPHINE 100 MG PO SCH ×3 (08:30→22:44)
[2019-02-19] MEDS: Gabapentin CAP(*) 300 MG PO SCH ×3 (08:30→20:49)
[2019-02-19] MEDS: Finasteride TAB* 5 MG PO SCH (08:30)
[2019-02-19] MEDS: Tamsulosin CAP* 0.4 MG PO SCH (08:30)
[2019-02-19] MEDS: Escitalopram * 10 MG TAB PO SCH (08:30)
[2019-02-19] MEDS: Insulin GLARGINE(*) 1 UNITS UNIT SUBCUT SCH (08:31)
[2019-02-19] MEDS: Cyclobenzaprine TAB* 10 MG PO SCH ×3 (08:31→22:44)
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
[2019-02-19] MEDS: ZOSYN 3.375 GM IVPB SCH ×6 (11:49→22:45)
[2019-02-19] MEDS: risperiDONE TAB* 2 MG PO SCH (17:44)
[2019-02-19] MEDS: Famotidine TAB* 20 MG PO SCH (17:44)
[2019-02-19] MEDS: Metoprolol Succinate XL TAB* 100 MG PO SCH (17:45)
[2019-02-19] MEDS ORDERED: Lisinopril TAB* 10 MG PO SCH (18:00)
[2019-02-20] MEDS: Morphine ORAL.SOLN 10 mg* 2 MG/ML UDC 5 ml PO PRN (05:03)
[2019-02-20] MEDS: ZOSYN 3.375 GM IVPB SCH ×8 (05:11→23:28)
[2019-02-20] MEDS ORDERED: Vancomycin Trough Check NOTE FOLLOW UP ONE (05:30)
[2019-02-20 05:38] LABS: Hematocrit 30 % (42-52); Hemoglobin 9.9 g/dL (14.0-18.0); Mean Corpuscular HGB Conc 33 g/dL (31-36); Mean Corpuscular Hemoglobin 30 pg (27-31); Mean Corpuscular Volume 92 fL (80-94); Mean Platelet Volume 7.6 fL (7.4-10.4); Platelet Count 162 10^3/uL (150-450); Red Cell Distribution Width 18 % (10-15); White Blood Count 8.3 10^3/uL (3.5-10.8)
[2019-02-20 05:41] LABS: ABS Basophils 0.1 10^3/ul (0-0.2); ABS Eosinophils 0.1 10^3/ul (0-0.6); ABS Lymphocytes 1.2 10^3/ul (1.0-4.8); ABS Monocytes 1.1 10^3/ul (0-0.8); ABS Neutrophils 5.7 10^3/ul (1.5-7.7)
[2019-02-20 05:44] LABS: INR 2.7 (0.82-1.09)
[2019-02-20 05:55] LABS: Albumin 2.1 g/dL (3.2-5.2); Albumin/Globulin Ratio 0.8 (1-3); BUN/Creatinine Ratio 26.5 (8-20); Calcium 7.5 mg/dL (8.6-10.3); EGFR Non-African American 171.9 (>60); Globulin 2.5 g/dL (2-4); Potassium 3.6 mmol/L (3.5-5.0); Total Bilirubin 0.5 mg/dL (0.2-1.0); Total Protein 4.6 g/dL (6.4-8.9)
[2019-02-20 06:05] LABS: Eosinophil % 1.3 %; Lymphocyte % 15.1 %; Nucleated Red Blood Cells % 0.1
[2019-02-20 06:13] LABS: Vancomycin Trough 5.1 mcg/mL
[2019-02-20] MEDS: Insulin LISPRO* 1 UNITS UNIT SUBCUT SCH ×4 (08:07→20:41)
[2019-02-20] MEDS: Insulin GLARGINE(*) 1 UNITS UNIT SUBCUT SCH (10:05)
[2019-02-20] MEDS: glipiZIDE TAB* 5 MG PO SCH (10:06)
[2019-02-20] MEDS: Escitalopram * 10 MG TAB PO SCH (10:06)
[2019-02-20] MEDS: Gabapentin CAP(*) 300 MG PO SCH ×2 (10:06→13:21)
[2019-02-20] MEDS: Cyclobenzaprine TAB* 10 MG PO SCH ×2 (10:06→14:48)
[2019-02-20] MEDS: Finasteride TAB* 5 MG PO SCH (10:06)
[2019-02-20] MEDS: amLODIPine TAB* 5 MG PO SCH (10:06)
[2019-02-20] MEDS: Tamsulosin CAP* 0.4 MG PO SCH (10:07)
[2019-02-20] MEDS: MORPHINE 100 MG PO SCH ×2 (10:38→14:48)
[2019-02-20] MEDS ORDERED: NS 0.9% 250 ML* 250 ML IV ONE (16:18)
--- NOTE | 2019-02-20 16:35 | PN ---
Progress Note - Progress Note Date of Service: 02/20/19 Note: Called by RN concerned by pt's lethargy and SBP 89. On arrival pt is awake, slow to respond, but AAOx3 , nonfocal on neurologic exam, 02 sat 94%. Pt appears to be oversedated. Reviewed medication list and stopped: Norvasc, flexeril, gabapentin, Morphine extended release, lisinopril and Risperdal. Will cont Morphine prn, Toprol with hold parameters W ill tx pt with NS 250 ml bolus. Will also get ABG to r/o C02 narcosis
[2019-02-20] MEDS: Metoprolol Succinate XL TAB* 100 MG PO SCH ×2 (16:59→20:41)
[2019-02-20] MEDS: Warfarin TAB(*) 3 MG PO SCH (17:04)
[2019-02-20] MEDS: Famotidine TAB* 20 MG PO SCH (17:05)
[2019-02-21] MEDS: ZOSYN 3.375 GM IVPB SCH ×8 (05:09→23:45)
[2019-02-21] MEDS: Morphine ORAL.SOLN 10 mg* 2 MG/ML UDC 5 ml PO PRN ×4 (05:53→18:10)
[2019-02-21 06:09] LABS: INR 2.77 (0.82-1.09)
[2019-02-21] MEDS: Insulin LISPRO* 1 UNITS UNIT SUBCUT SCH ×4 (08:41→20:55)
[2019-02-21] MEDS: Finasteride TAB* 5 MG PO SCH (09:39)
[2019-02-21] MEDS: Escitalopram * 10 MG TAB PO SCH (09:39)
[2019-02-21] MEDS: glipiZIDE TAB* 5 MG PO SCH (09:39)
[2019-02-21] MEDS: Insulin GLARGINE(*) 1 UNITS UNIT SUBCUT SCH (09:40)
[2019-02-21] MEDS: Tamsulosin CAP* 0.4 MG PO SCH (09:40)
[2019-02-21] MEDS: Levofloxacin 500 MG IVPREMIX(* 500 MG/100 ML BAG IVPB SCH (12:23)
[2019-02-21] MEDS ORDERED: Iodixanol* (CONTRAST) 320 MG/ML 100 ML SDV IV SCH (12:47)
[2019-02-21] MEDS: Famotidine TAB* 20 MG PO SCH (17:13)
[2019-02-21] MEDS: Metoprolol Succinate XL TAB* 100 MG PO SCH (17:13)
[2019-02-21] MEDS: Warfarin TAB(*) 3 MG PO SCH (17:14)
[2019-02-22] MEDS: Morphine ORAL.SOLN 10 mg* 2 MG/ML UDC 5 ml PO PRN ×3 (03:28→17:27)
[2019-02-22] MEDS: ZOSYN 3.375 GM IVPB SCH ×8 (05:11→23:38)
[2019-02-22 05:50] LABS: Hematocrit 30 % (42-52); Mean Corpuscular HGB Conc 34 g/dL (31-36); Mean Corpuscular Hemoglobin 30 pg (27-31); Mean Corpuscular Volume 90 fL (80-94); Mean Platelet Volume 8.1 fL (7.4-10.4); Platelet Count 172 10^3/uL (150-450); Red Cell Distribution Width 18 % (10-15); White Blood Count 7.4 10^3/uL (3.5-10.8)
[2019-02-22 05:56] LABS: INR 3.16 (0.82-1.09)
[2019-02-22 06:10] LABS: Albumin 2.1 g/dL (3.2-5.2); Albumin/Globulin Ratio 0.8 (1-3); BUN/Creatinine Ratio 19.2 (8-20); Calcium 7.5 mg/dL (8.6-10.3); EGFR African American 194.2 (>60); EGFR Non-African American 160.5 (>60); Globulin 2.5 g/dL (2-4); Potassium 3.8 mmol/L (3.5-5.0); Total Bilirubin 0.8 mg/dL (0.2-1.0); Total Protein 4.6 g/dL (6.4-8.9)
[2019-02-22 06:51] LABS: ABS Eosinophils 0.1 10^3/ul (0-0.6); ABS Lymphocytes 1.3 10^3/ul (1.0-4.8); ABS Monocytes 0.9 10^3/ul (0-0.8); ABS Neutrophils 5.2 10^3/ul (1.5-7.7)
[2019-02-22] MEDS: Insulin LISPRO* 1 UNITS UNIT SUBCUT SCH ×4 (07:58→20:55)
[2019-02-22] MEDS: glipiZIDE TAB* 5 MG PO SCH (10:43)
[2019-02-22] MEDS: Finasteride TAB* 5 MG PO SCH (10:44)
[2019-02-22] MEDS: Tamsulosin CAP* 0.4 MG PO SCH (10:44)
[2019-02-22] MEDS: Escitalopram * 10 MG TAB PO SCH (10:44)
[2019-02-22] MEDS: Insulin GLARGINE(*) 1 UNITS UNIT SUBCUT SCH (10:45)
[2019-02-22] MEDS: Levofloxacin 500 MG IVPREMIX(* 500 MG/100 ML BAG IVPB SCH (10:45)
[2019-02-22] MEDS: Famotidine TAB* 20 MG PO SCH (17:21)
[2019-02-22] MEDS: Metoprolol Succinate XL TAB* 100 MG PO SCH (17:21)
[2019-02-22] MEDS: Warfarin TAB(*) 2 MG PO SCH (17:21)
[2019-02-23] MEDS: ZOSYN 3.375 GM IVPB SCH ×6 (05:02→18:05)
[2019-02-23 05:20] LABS: INR 3.07 (0.82-1.09)
[2019-02-23] MEDS: Insulin LISPRO* 1 UNITS UNIT SUBCUT SCH ×4 (08:02→20:30)
[2019-02-23] MEDS: Escitalopram * 10 MG TAB PO SCH (08:45)
[2019-02-23] MEDS: Tamsulosin CAP* 0.4 MG PO SCH (08:45)
[2019-02-23] MEDS: glipiZIDE TAB* 5 MG PO SCH (08:45)
[2019-02-23] MEDS: Morphine ORAL.SOLN 10 mg* 2 MG/ML UDC 5 ml PO PRN ×3 (08:46→20:09)
[2019-02-23] MEDS: Finasteride TAB* 5 MG PO SCH (09:06)
[2019-02-23] MEDS: Insulin GLARGINE(*) 1 UNITS UNIT SUBCUT SCH (09:06)
[2019-02-23] MEDS: Famotidine TAB* 20 MG PO SCH (18:03)
[2019-02-23] MEDS: Warfarin TAB(*) 2 MG PO SCH (18:03)
[2019-02-23] MEDS: Metoprolol Succinate XL TAB* 100 MG PO SCH (18:03)
[2019-02-24] MEDS: ZOSYN 3.375 GM IVPB SCH ×10 (00:05→23:41)
[2019-02-24] MEDS: Morphine ORAL.SOLN 10 mg* 2 MG/ML UDC 5 ml PO PRN ×3 (07:46→19:47)
[2019-02-24] MEDS: Escitalopram * 10 MG TAB PO SCH (07:51)
[2019-02-24] MEDS: Tamsulosin CAP* 0.4 MG PO SCH (07:51)
[2019-02-24] MEDS: glipiZIDE TAB* 5 MG PO SCH (07:51)
[2019-02-24] MEDS: Finasteride TAB* 5 MG PO SCH (07:51)
[2019-02-24] MEDS: Insulin LISPRO* 1 UNITS UNIT SUBCUT SCH ×4 (07:51→20:23)
[2019-02-24] MEDS: Insulin GLARGINE(*) 1 UNITS UNIT SUBCUT SCH (07:53)
--- NOTE | 2019-02-24 17:15 | PN ---
Subjective Date of Service: 02/24/19 Interval History: Mr. Matias is a 63 yo male with PMH significant for stage 4 pancreatic cancer on chemotherapy, renal calculi, DM2, HTN, provoked DVT, and peripheral neuropathy; who presented to the hospital with concern for left LE cellulitis. He was recently hospitalized from 02/01/19 to 02/03/19 for a L1 compression fracture, weakness, and falls. Patient presented to the hospital with unstagable pressure injuries to bilateral heels. He reports that the wounds have been present for a few weeks to a month, but they were not documented during the previous admission about 3 weeks ago. He reports caring for the wounds at home by washing the feet with normal saline. He was noted to have an open area to his coccyx with nonblanchable areas on admission. Denies fever, chills, pain in the left heel is improving. He is hoping to get the wounds healed so that he can resume chemotherapy. Patient seen and examined at bedside. Family History: Unchanged from Admission Social History: Unchanged from Admission Past Medical History: Unchanged from Admission Objective Active Medications: Dextrose (Dextrose 50% Vial 50 Ml*) 25 ml IV PUSH .FOR FS < 60 - SS PRN Reason : FS < 60 Escitalopram Oxalate (Lexapro *) 10 mg PO DAILY [facility] Famotidine (Pepcid Tab*) 40 mg PO QPM [facility] Finasteride (Proscar Tab*) 5 mg PO DAILY [facility] Glipizide (Glucotrol Tab*) 2.5 mg PO DAILY [facility] Piperacillin Sod/Tazobactam (Sod 3.375 gm/ Sodium Chloride) 100 mls @ 200 mls/ hr IVPB Q6H [facility] Insulin Glargine (Lantus(*)) 15 units SUBCUT DAILY [facility] Insulin Human Lispro (Humalog*) 0 units SUBCUT ACHS [facility]; Protocol Metoprolol Succinate (Toprol Xl Tab*) 100 mg PO QPM [facility] Morphine Sulfate (Morphine Oral.Soln 10 Mg*) 30 mg PO Q6H PRN Reason: PAIN Pharmacy Consult (Zosyn Per Pharmacy*) 1 note FOLLOW UP .ZOSYN PER PHARMACY [facility] Tamsulosin HCl (Flomax Cap*) 0.8 mg PO DAILY [facility] Warfarin Sodium (Coumadin Tab(*)) 2 mg PO DAILY@1700 [facility]; Protocol Vital Signs - 8 hr 02/24/19 02/24/19 02/24/19 09:59 13:42 15:15 Temperature 99 F Pulse Rate 63 Respiratory 16 16 18 Rate Blood Pressure 146/70 (mmHg) O2 Sat by Pulse 99 Oximetry Oxygen Devices in Use Now: None Appearance: NAD, laying in bed Ears/Nose/Mouth/Throat: Mucous Membranes Moist Respiratory: Symmetrical Chest Expansion and Respiratory Effort Extremities: - - 1-2 + bilateral LE edema Skin: - - See Neurological: Alert and Oriented x 3 Nutrition: Taking PO's Result Diagrams: 02/22/19 05:20 02/22/19 05:20 Additional Lab and Data: Above labs pulled into the note when the note was edited prior to signing. See labs from day of consultation below. Microbiology and Other Data: Microbiology 02/18/19 15:10 Skin and Soft Tissue MRSA/MSSA (PCR - Final Foot Right Mrsa Negative S.aureus Negative Gram Stain - Final Wound Culture - Final Enterobacter Cloacae Complex Acinetobacter Haemolyticus Proteus Mirabilis Enterococcus Faecalis Normal Debby 02/17/19 20:00 Skin and Soft Tissue MRSA/MSSA (PCR - Final Foot Left Mrsa Negative S.aureus Negative Gram Stain - Final Wound Culture - Final Enterobacter Cloacae Complex Normal Debby Skin Deviation Note - Skin Deviation Findings Left lateral and plantar heel - There is dark purplish discoloration. The heel is boggy. There is a small amount of peeling skin to the lateral aspect of the heel, with a small amount of purulent drainage noted. The surrounding skin is intact. Total area of this wound is 10 cm x 14 cm x 0.1 cm. No foul smell. Left medial and plantar heel - There is dark purplish discoloration. The heel is boggy. The previously open area on the medial aspect of the heel last week is no longer open this week and is now dry without drainage. The surrounding skin is intact. See above for size of wound. Right lateral and plantar heel - There is a wound to the heal with the total area that is involved measuring 9 cm x 11 cm x 0.1 cm. There is an area on the lateral aspect of the heel that has healed. There is an open area that measures 4.2 cm x 3.5 cm x 0.1 cm. Towards the lateral aspect of the open area there is a dark area that measures 2 cm x 1.3 cm. The rest of the wound base is pink granulation tissue. There is a small amount of serous drainage noted from the wound. No foul smell. The heel is boggy. Buttocks - There is a superficial open area to the left buttock, the area measures 0.7 cm x 0.5 cm x 0.2 cm. The wound base is pink granulation tissue. The surrounding skin is intact. There is no drainage noted. Wound Problem/Plan Mr. Matias is a 63 yo male with PMH significant for stage 4 pancreatic cancer on chemotherapy, renal calculi, DM2, HTN, provoked DVT, and peripheral neuropathy; who presented to the hospital with concern for left LE cellulitis. He was recently hospitalized from 02/01/19 to 02/03/19 for a L1 compression fracture, weakness, and falls. 1. Bilateral heel deep tissue injuries. S/P right heel bedside debridement last week. Wound cultures from bilateral heels taken last week polymicrobial. Recommend washing bilateral LEs with soap and water. The right heel should have calcium alginate applied, followed by telfa, and rolled gauze; change daily. The left heel should have telfa, followed by rolled gauze; change daily. Should consider ABIs to evaluate LE circulation. 2. Shearing injury to left buttock. Apply barrier cream to the buttocks. Frequent turning and repositioning. Use a lifting device for moving in bed. if not incontinent, do not use a "animal shelter clerk pad" and use only a draw sheet. Consider checking a pre-albumin level to check nutritional status. 3. Left lower leg cellulitis. Management per primary medicine team. 4. DM2 with peripheral neuropathy. HgA1C was 10.7 in September of 2017. Consider rechecking a HgA1C. Maintain good glycemic control to allow for wound healing. 5. Diet. Consistent carbohydrate diet. 6. Code Status. Full Code. Is Patient a Wound Clinic Patient: No Status and Disposition: Disposition. Inpatient, disposition per primary medicine team. Counseling and/or Coordination of Care Minutes: 30 Points of Discussion: TIME SPENT: Time for this wound consultation was 30 minutes and 25 minutes was spent with the patient removing old dressings; assessing, measuring, and photographing the wounds; and reapplying new dressings. Attending: Leticia Pederson
[2019-02-24] MEDS: Warfarin TAB(*) 2 MG PO SCH (17:26)
[2019-02-24] MEDS: Metoprolol Succinate XL TAB* 100 MG PO SCH (17:26)
[2019-02-24] MEDS: Famotidine TAB* 20 MG PO SCH (17:26)
[2019-02-25] MEDS: Morphine ORAL.SOLN 10 mg* 2 MG/ML UDC 5 ml PO PRN ×2 (03:18→09:59)
[2019-02-25] MEDS: ZOSYN 3.375 GM IVPB SCH ×4 (04:57→12:50)
[2019-02-25 05:34] LABS: INR 3.2 (0.82-1.09)
[2019-02-25] MEDS: Insulin LISPRO* 1 UNITS UNIT SUBCUT SCH ×2 (09:51→12:00)
[2019-02-25] MEDS: glipiZIDE TAB* 5 MG PO SCH (09:57)
[2019-02-25] MEDS: Escitalopram * 10 MG TAB PO SCH (09:57)
[2019-02-25] MEDS: Finasteride TAB* 5 MG PO SCH (09:57)
[2019-02-25] MEDS: Tamsulosin CAP* 0.4 MG PO SCH (09:57)
[2019-02-25] MEDS: Insulin GLARGINE(*) 1 UNITS UNIT SUBCUT SCH (09:58)
[2019-02-25 11:32] VITALS: BP 163/72
[2019-02-25] MEDS ORDERED: Sulfamethox/Trimethoprim DS 800/160* TAB PO SCH (21:00)
--- NOTE | 2019-02-25 23:34 | DS ---
CC: Dr. Michael Hurst; Dr. Tristan Chambers * DISCHARGE SUMMARY: DATE OF ADMISSION: 02/17/19 DATE OF DISCHARGE: 02/25/19 PRIMARY CARE PROVIDER: Dr. Michael Hurst. PRIMARY ONCOLOGIST AND ATTENDING PHYSICIAN: Dr. Tristan Chambers.* (DICTATED BY KOLBY CHO) CONSULTING INFECTIOUS DISEASE SPECIALIST: Arnol Roberts MD, PRIMARY DISCHARGE DIAGNOSES: 1. Cellulitis secondary to lower extremity pressure ulcers. 2. Metastatic pancreatic cancer. 3. Type 2 diabetes. DISCHARGE MEDICATIONS: 1. Amlodipine 10 mg p.o. daily. 2. Cyclobenzaprine 10 mg p.o. 3 times daily as needed. 3. Marinol 2.5 mg p.o. 3 times daily as needed. 4. Lexapro 10 mg p.o. daily. 5. Famotidine 40 mg p.o. daily. 6. Finasteride 5 mg p.o. daily. 7. Gabapentin 600 mg p.o. 3 times daily. 8. Glipizide 5 mg p.o. daily. 9. Lantus 30 units subcu daily. 10. Lorazepam 1 mg p.o. at bedtime as needed. 11. Medical marijuana. 12. Metoprolol succinate 100 mg p.o. daily. 13. MS Contin 100 mg p.o. 3 times daily. 14. Morphine immediate release 30 mg p.o. q.6 hours as needed for pain. 15. Risperidone 2 mg p.o. at bedtime. 16. Flomax 0.8 mg p.o. daily. 17. Coumadin 2 mg p.o. daily. 18. Cefdinir 300 mg p.o. twice daily x14 days. 19. Lisinopril 40 mg p.o. daily. HOSPITAL IMAGING: CT chest, abdomen and pelvis: In the chest, there is a new small left pleural effusion and unchanged 5-mm pulmonary nodule and pleural thickening in the right upper lobe. Within the abdomen and pelvis, there is a dominant mass in the pancreas, slightly increased in size, now measuring 2.0 x 1.7 cm, previously measuring 1.5 x 1.6 cm, there is progressive pancreatic ductal dilatation with new peripancreatic stranding, multiple hepatic hypodensities which are too small to characterize and seemed less conspicuous on today's exam. There is similar intrahepatic biliary ductal dilatation. Periportal and retroperitoneal lymph nodes are unchanged in size. HOSPITAL COURSE: This is a 63-year-old gentleman under treatment for metastatic pancreatic cancer with Dr. Tristan Chambers, who has had recent hospitalization for multiple falls resulting in thoracic compression fracture, who was recently discharged home and followed up in the clinic prior to resuming chemotherapy with complaints of an open blister over his heel. He was noted to have associated left lower extremity cellulitis with an open ulceration over the left heel and an intact large bulla over the right heel without associated cellulitis at that time. The patient refused hospitalization at that time and was treated with oral antibiotics and subsequently returned for further outpatient follow up and found that his cellulitis had progressed in nature and he was subsequently admitted to the hospital by Dr. Chambers. The patient was afebrile and without leukocytosis or leukopenia. He subsequently received Zosyn and Wound and ID consultation. The patient had light debridement of one of the heel ulcerations. Wound culture grew multiple organisms. Cellulitis appeared improved with IV Zosyn. Of note, a maggot was found within the patient's wound and there has been concern regarding the cleanliness of the house brought to the attention of medical providers by [facility]. Due to severe concerns regrading the patient's safety and cleanliness within the home, [facility] was not agreeable to sign the patient back on to home care services. The safety and condition of the patient's home was discussed in detail with the patient and recommendations had been made for the patient to receive residential care in a nursing facility. Mobility has been weaning over the last several months and has been dependent on his son to transfer him from bed to wheelchair. The patient was quite adamant that he would not seek care in the nursing facility and instead wanted to return home. The patient's insurer had plans to provide a deep cleaning service to the patient's primary home, but he was unable to live there during that time. Despite multiple conversations and after deescalating the patient due to his frustration, the patient ultimately requested to leave the hospital against medical advice. A thorough discussion on multiple occasions regarding the safety of his discharge plan, risks of worsening infection was had with both the patient and his son. Despite this, the patient demonstrated capacity to make an informed decision and wished to leave the hospital. His son transported him home. He did report that there was a plan and place for him to stay with a friend of his by the name of Charles Burger and his could act as a primary career services assistant. This family friend was contacted, who confirmed the plan and was agreeable to pick the patient up the following day. Despite this more cohesive plan, the patient still decided to leave the hospital against medical advice with his son transporting him. DISPOSITION AND FOLLOWUP PLAN: The patient is being discharged to home with oral antibiotics, currently receiving cefdinir. Outpatient wound care consultation has been placed prior to this admission. He will be followed closely in the Oncology Clinic and outpatient wound care. KOLBY CHO [id number]/[facility] #: [id number] MTDD
--- NOTE | 2019-03-01 10:01 | PN ---
Progress Note - Progress Note Date of Service: 03/01/19 SOAP: Addendum to Discharge Summary: Patient is leaving the hospital in stable, but guarded condition
== END 2019-02-25 15:10 | disposition left against medical advice (07) | DRG 361 ==
LOC: MED 14:44
PROVIDERS: ADMIT Internal Medicine Hematology & Oncology; ATTEND Internal Medicine Hematology & Oncology
PROC: 0HBMXZZ Excision of Right Foot Skin, External Approach (ICD-10-PCS; principal; 2019-02-18)
DX: L03.116 Cellulitis of left lower limb (principal); C78.7 Secondary malignant neoplasm of liver and intrahepatic bile duct; L97.429 Non-pressure chronic ulcer of left heel and midfoot with unspecified severity; C25.7 Malignant neoplasm of other parts of pancreas; L03.115 Cellulitis of right lower limb; B96.89 Other specified bacterial agents as the cause of diseases classified elsewhere; B96.4 Proteus (mirabilis) (morganii) as the cause of diseases classified elsewhere; B95.2 Enterococcus as the cause of diseases classified elsewhere; E11.621 Type 2 diabetes mellitus with foot ulcer; E11.42 Type 2 diabetes mellitus with diabetic polyneuropathy; I10 Essential (primary) hypertension; L97.519 Non-pressure chronic ulcer of other part of right foot with unspecified severity; G40.909 Epilepsy, unspecified, not intractable, without status epilepticus; M19.90 Unspecified osteoarthritis, unspecified site; S32.019D Unspecified fracture of first lumbar vertebra, subsequent encounter for fracture with routine healing; W19.XXXD Unspecified fall, subsequent encounter; G89.29 Other chronic pain; S30.810A Abrasion of lower back and pelvis, initial encounter; X58.XXXA Exposure to other specified factors, initial encounter; F10.21 Alcohol dependence, in remission; Y92.9 Unspecified place or not applicable; Z86.718 Personal history of other venous thrombosis and embolism; Z86.19 Personal history of other infectious and parasitic diseases; Z91.040 Latex allergy status; Z88.5 Allergy status to narcotic agent; Z88.2 Allergy status to sulfonamides; Z88.8 Allergy status to other drugs, medicaments and biological substances; Z91.018 Allergy to other foods; Z79.84 Long term (current) use of oral hypoglycemic drugs; Z79.1 Long term (current) use of non-steroidal anti-inflammatories (NSAID); Z79.4 Long term (current) use of insulin; Z79.899 Other long term (current) drug therapy; Z87.442 Personal history of urinary calculi; Z87.891 Personal history of nicotine dependence; Z80.0 Family history of malignant neoplasm of digestive organs; Z83.3 Family history of diabetes mellitus; Z79.01 Long term (current) use of anticoagulants
CPT/HCPCS: 36415; 36600; 71260; 74177; 80053; 80202; 82803; 85025; 85610; 87070; 87077; 87186; 87205; 87640; 87641; 99233; 99239; 99406; A9270-GY; J1642; J1956; J2310; J2543; J3370; Q9967

== ENCOUNTER 2019-03-01 17:49 | Inpatient (IN) | payer MEDICAID ==
[2019-03-01] MEDS ORDERED: NS 0.9% 1000 ML** 1,000 ML IV ONE ×4 (18:04→22:15)
--- NOTE | 2019-03-01 18:04 | ED ---
Altered Mental Status - HPI Summary HPI Summary: LEVEL 5 CAVEAT: COMPLETE HPI LIMITED DUE TO PATIENT AMS. This patient is a 63 year old M w a hx of end stage pancreatic cancer metastasized to liver BIBA to ED via EMS with a chief complaint of altered mental status. Patient arrives at 1746. Dr. Oconnell at bedside at 1746. Per EMS, 10 minutes COFFEE TASTER patient was alert and responsive with BP 51/38 and HR 70 BPM. Patient was recently hospitalized here for sepsis 2/2 LLE cellulitis and was on zosyn, had debridement. Patient was told to space out his medications, but he has been taking them all in the morning at once per EMS. Patient believe to be on morphine at home. Upon arrival to ED, Dr. Oconnell placed an US- guided IV successfully without complication. Patient has wounds to bilateral heels. BP improved w IVFs. Patient denies complaints however is intermittently somnolent and confused. Per EMS patient is full code. - History Of Current Complaint Stated Complaint: AMS PER EMS Hx Obtained From: EMS Hx From Patient Unobtainable Due To: Altered Mental Status Onset/Duration: Still Present - Allergies/Home Medications Allergies/Adverse Reactions: Allergies Allergy/AdvReac Type Severity Reaction Status Date / Time carbamazepine Allergy Severe Swelling Verified 02/01/19 13:40 Of Face,Lips,& Throat sunflower oil Allergy Severe Swelling Verified 02/01/19 13:40 Of Face,Lips,& Throat latex Allergy Intermediate Rash Verified 02/01/19 13:40 Adhesive Tape Allergy Rash Verified 02/01/19 13:40 naltrexone [From Embeda] Allergy Swelling Verified 02/01/19 13:40 Sulfa (Sulfonamide AdvReac Mild See Comment Verified 02/01/19 13:40 Antibiotics) PMH/Surg Hx/FS Hx/Imm Hx Previously Healthy: No - LEVEL 5 CAVEAT: COMPLETE PMH UNATTAINABLE DUE TO AMS. Endocrine/Hematology History: Reports: Hx Anticoagulant Therapy - coumadin, Hx Diabetes, Hx Anemia - warfarin therapy Cardiovascular History: Reports: Hx Deep Vein Thrombosis, Hx Hypercholesterolemia, Hx Hypertension, Other Cardiovascular Problems/Disorders - ON COUMADIN Denies: Hx Pacemaker/ICD Respiratory History: Reports: Hx Sleep Apnea - not diagnosed Denies: Hx Chronic Obstructive Pulmonary Disease (COPD) GI History: Reports: Hx Cirrhosis, Hx Gastroesophageal Reflux Disease, Other GI Disorders - PANCREATIC CANCER History: Reports: Hx Kidney Stones - several times, last episode approx 3 yrs ago?, Other Problems/Disorders - HX OF STONES Denies: Hx Renal Disease Musculoskeletal History: Reports: Hx Arthritis - neck, arms, hands, legs, Hx Back Problems - chronic bilateral foraminal narrowing, DDD, OA, s/p laminectomy , Other Musculoskeletal History - Chronic Pain Sensory History: Reports: Hx Cataracts - mild bi-lat Denies: Hx Contacts or Glasses, Hx Glaucoma, Hx Hearing Aid Opthamlomology History: Reports: Hx Cataracts - mild bi-lat Denies: Hx Contacts or Glasses, Hx Glaucoma Neurological History: Reports: Hx Headaches, Hx Migraine - once a month, uses relaxation techniques, medication, Hx Seizures - 10 years ago, no meds now, Other Neuro Impairments/Disorders - pt is not taking medication for anxiety/ depression Denies: Hx Dementia Psychiatric History: Reports: Hx Anxiety, Hx Depression Denies: Hx Panic Disorder - Cancer History Cancer Type, Location and Year: October 2017 - dx w/ pancreatic cancer w/ liver mets Hx Chemotherapy: Yes - started recently - Surgical History Surgery Procedure, Year, and Place: Cholecystectomy; Bilateral Carpal Tunnel PT NEEDS TO BE SCHEDULED AT [facility]. BLOOD CLOT IN LEFT LEG NEEDS TO HAVE PORT ACCESSED. LSP Back and CSP surgery [facility] [place]. [place] dental extraction. october 2017 - liver and pancreas biopsies Hx Anesthesia Reactions: No Infectious Disease History: Reports: Hx Hepatitis - hep c positive Denies: Traveled Outside the [place] in Last 30 Days - Family History Known Family History: Positive: Hypertension, Other - FMHX OF PANCREATIC CANCER , MOTHER - Social History Alcohol Use: Rare Hx Substance Use: No Substance Use Type: Reports: Marijuana Substance Use Comment - Amount & Last Used: prescribed Hx Tobacco Use: Yes Smoking Status (MU): Heavy Every Day Tobacco Smoker Type: Cigarettes Amount Used/How Often: 10 cig per day Have You Smoked in the Last Year: Yes Review of Systems - ROS Summary Review of Systems Summary: LEVEL 5 CAVEAT: COMPLETE ROS UNATTAINABLE DUE TO PATIENT AMS. Skin: Other - Wounds to bilateral heels Neurological: Other - AMS All Other Systems Reviewed And Are Negative: No Physical Exam - Summary Physical Exam Summary: LEVEL 5 CAVEAT: COMPLETE PHYSICAL EXAM UNATTAINABLE DUE TO PATIENT AMS. Constitutional: ill-appearing, intermittently somnolent Skin: bilateral heel wounds with dehiscence of skin of the left heel, erythema of LLE HENT: Normocephalic; Atraumatic, dried vomit to R mouth Eyes: Conjunctiva normal Neck: Musculoskeletal ROM normal neck. (-) JVD, (-) Stridor, (-) Nuchal rigidity Cardio: Rhythm regular, rate normal, Heart sounds normal; Intact distal pulses; Radial pulses are 2+ and symmetric. (-) Murmur Pulmonary/Chest wall: Effort normal. (-) Respiratory distress, (-) Wheezes, (-) Rales Abd: Soft, (-) tenderness, (-) Distension, (-) Guarding, (-) Rebound Musculoskeletal: edema to the bilateral LE, venous stasis changes of left LE Lymph: (-) Cervical adenopathy GCS: 14 Triage Information Reviewed: Yes Vital Signs On Initial Exam: Initial Vitals Temp Pulse Resp BP Pulse Ox 96.8 F 71 20 105/62 100 03/01/19 17:58 03/01/19 17:58 03/01/19 17:58 03/01/19 17:58 03/01/19 17:58 Vital Signs Reviewed: Yes - [place] Coma Scale Best Eye Response: 4 - Spontaneous Best Motor Response: 6 - Obeys Commands Best Verbal Response: 4 - Confused Coma Scale Total: 14 Diagnostics - Laboratory Result Diagrams: 03/02/19 05:25 03/02/19 05:25 Lab Statement: Any lab studies that have been ordered have been reviewed, and results considered in the medical decision making process. - Radiology CXR Radiology Interpretation Completed By: ED Physician Summary of Radiographic Findings: No acute processes, pending official radiology report. - CT Brain CT Interpretation Completed By: Radiologist Summary of CT Findings: No acute intracranial abnormality. No interval change. Dr. Oconnell has reviewed this radiology report. - EKG 1833 Cardiac Rate: NL - 71 BPM EKG Rhythm: Sinus Rhythm ST Segment: Normal Ectopy: None Summary of EKG Findings: An EKG at 1833 reveals normal sinus rhythm 71 BPM, nml axis, nml intervals. No STEMI. No acute changes. Re-Evaluation - Re-Evaluation First Eval Comment: CT and chest x-ray negative for acute process, suspect that altered mental status could be secondary to the chronic morphine use as patient reportedly had taken all his meds at once. Admit to medicine. Altered Mental Statu Course/Dx - Course Course Of Treatment: 62-year-old male with a history of recent cellulitis and sepsis, metastatic pancreatic cancer, chronic opiate use who presents with altered mental status. Given that this patient has normal O2, BG, hypoxia and hypoglycemia/DKA less likely. DDx still includes: Opiate overdose, electrolyte abnl, infection/sepsis, drug overdose, hypothermia, uremia, trauma, encephalopathy/encephalitis, psych, stroke, SAH, postictal from seizure. Will check labs, head ct, urine, ekg, cxr. Reassess. Hold off on Narcan given the patient has good respiratory effort, placed on end-tidal. Cover with one dose of Zosyn for recent cellulitis. Chronic LLE edema on exam w overlying erythema - Diagnoses Provider Diagnoses: Altered mental status, Hypotension, Cellulitis - Provider Notifications Discussed Care Of Patient With: Julian Jeter Time Discussed With Above Provider: 20:10 Instructed by Provider To: Admit As Inpatient - Discussed pt case with Dr. Jeter , hospitalist, who accepted patient for admission to [facility] [place]. - Critical Care Time Critical Care Time: 30-74 min - 30 minutes Discharge - Sign-Out/Discharge Documenting (check all that apply): Patient Departure - Admit by Dr. Jeter Patient Received Moderate/Deep Sedation with Procedure: No - Discharge Plan Condition: Fair Disposition: ADMITTED TO [facility] - Billing Disposition and Condition Condition: FAIR Disposition: Admitted to [facility] - Attestation Statements Document Initiated by Marilee: Yes Documenting Scribe: Jadon Barnes Provider For Whom Chayoe is Documenting (Include Credential): [place] Oconnell MD Scribe Attestation: IJadon, scribed for [place] Oconnell MD on 03/02/19 at 1203. Scribe Documentation Reviewed: Yes Provider Attestation: The documentation as recorded by the Jadon hawthorne accurately reflects the service I personally performed and the decisions made by me, [place] Oconnell MD Status of Scribe Document: Viewed
[2019-03-01 18:12] LABS: ABS Basophils 0.1 10^3/ul (0-0.2); ABS Eosinophils 0.2 10^3/ul (0-0.6); ABS Lymphocytes 2.1 10^3/ul (1.0-4.8); ABS Monocytes 1.1 10^3/ul (0-0.8); ABS Neutrophils 6.4 10^3/ul (1.5-7.7); Eosinophil % 2.1 %; Hematocrit 31 % (42-52); Hemoglobin 10.4 g/dL (14.0-18.0); Lymphocyte % 20.8 %; Mean Corpuscular HGB Conc 33 g/dL (31-36); Mean Corpuscular Hemoglobin 30 pg (27-31); Mean Corpuscular Volume 92 fL (80-94); Mean Platelet Volume 7.9 fL (7.4-10.4); Platelet Count 189 10^3/uL (150-450); Red Blood Count 3.41 10^6 /uL (4.18-5.48); Red Cell Distribution Width 19 % (10-15)
[2019-03-01 18:24] LABS: Albumin 2.6 g/dL (3.2-5.2); Calcium 8.1 mg/dL (8.6-10.3); Potassium 3.9 mmol/L (3.5-5.0); Total Bilirubin 0.4 mg/dL (0.2-1.0)
[2019-03-01 18:30] LABS: Albumin/Globulin Ratio 1.1 (1-3); BUN/Creatinine Ratio 33.3 (8-20); EGFR African American 164.7 (>60); EGFR Non-African American 136.1 (>60); Globulin 2.4 g/dL (2-4)
[2019-03-01 18:31] LABS: Troponin I 0.01 ng/mL (<0.04)
[2019-03-01] MEDS ORDERED: Piperacillin/Tazobac ADVAN(*) 3.375 GM in NS 0.9% 100 ML* 100 ML IVPB ONE (19:42)
[2019-03-01 20:21] LABS: Urine Appearance Cloudy; Urine Bacteria Absent (Absent); Urine Bilirubin Negative (Negative); Urine Blood 2+ (Negative); Urine Color Yellow; Urine Glucose 3+(>=500 mg/dL) (Negative); Urine Ketones Negative (Negative); Urine Nitrite Negative (Negative); Urine Protein Negative (Negative); Urine Red Blood Cell 3+(>10/hpf) (Absent); Urine Specific Gravity 1.017 (1.010-1.030); Urine Urobilinogen Negative (Negative); Urine White Blood Cell 1+(6-10/hpf) (Absent)
[2019-03-01] MEDS ORDERED: Dextrose 50% VIAL 50 ml IV PUSH PRN (20:42)
[2019-03-01] MEDS ORDERED: Vancomycin(*) 1,500 MG in NS 0.9% 250 ML* 250 ML IVPB ONE (20:47)
[2019-03-01] MEDS ORDERED: Vancomycin per Pharmacy* NOTE FOLLOW UP SCH (21:00)
[2019-03-01] MEDS: NS 0.9% 1000 ML** 1,000 ML IV SCH (21:46)
[2019-03-01] MEDS: Cefepime 1 GM in Dextrose(*) 1 GM/50 ML BAG IV SCH (21:48)
[2019-03-01] MEDS: Heparin VIAL(*) 5000 UNITS/ML VIAL (FIVE THOUSAND) SUBCUT SCH (21:48)
--- NOTE | 2019-03-01 22:39 | HP ---
CC: Dr. Chambers; Dr. Hurst * HISTORY AND PHYSICAL: DATE OF ADMISSION: 03/01/19. PRIMARY CARE PHYSICIAN: Dr. Hurst. ONCOLOGIST: Dr. Chambers. ATTENDING PHYSICIAN: Dr. Julian Jeter * (dictation provided by Izzy Pearson NP). CHIEF COMPLAINT: Fall and hypotension. HISTORY OF PRESENT ILLNESS: Mr. Matias is a 63-year-old male with past medical history of stage IV pancreatic cancer; type 2 diabetes, insulin dependent, who presents today to the hospital after being reportedly found on the floor, hypotensive and minimally responsive. Mr. Matias is interactive today. He is oriented to himself and place and answers some brief questions and will follow commands, but not able to provide any meaningful history of present illness. Per the report from nursing staff and EMS and the patient's family, who were here earlier, Mr. Matias was found on the floor today. He was minimally to nonresponsive. Per EMS report, his blood pressure was in the 50s systolically. The family state that since he had been discharged there has been some concern that he is taking too many of his medications at once. There is report that he is supposed to take a handful of medications throughout the day, but that he takes them all at the same time. There is concern that this leads to overdosing of his MS Contin. In the emergency room, Mr. Matias had labs, which showed no leukocytosis. His hemoglobin is 10.4, which is at baseline. His BUN and creatinine are normal. His electrolytes are normal. His glucose is 107. His alk phos is 1184, which is consistent with previous troponin of 0.01. Ammonia is 45. Urine shows no evidence of infection. On exam, his left heel has a healing ulcer. It is peeling dried skin, but no drainage or erythema. His left calf is swollen and warmth. Mr. Matias was just discharged from our hospital after being cared for by the oncology team for several days. His discharge date was 02/25/19. He was admitted to the hospital out of concern for cellulitis to his left heel and was discharged to home on cefdinir. PAST MEDICAL HISTORY: 1. Stage IV pancreatic cancer, intermittently on chemotherapy. 2. History of kidney stone. 3. Type 2 diabetes, insulin dependent. 4. Hypertension. 5. History of provoked DVT. 6. Peripheral neuropathy. PAST SURGICAL HISTORY: Carpal tunnel release, cholecystectomy, port placement, and laminectomy. MEDICATIONS: Medications in the last hospitalization are: 1. Risperidone 2 mg p.o. q.p.m. 2. Glipizide 5 mg p.o. daily. 3. Amlodipine 10 mg p.o. daily. 4. Warfarin 4 mg p.o. daily. 5. Tamsulosin 2 tabs p.o. daily. 6. Morphine 30 mg q.5 to 6 hours p.r.n. pain. 7. Morphine sulfate 100 mg p.o. t.i.d. 8. Metoprolol succinate 100 mg p.o. q.p.m. 9. Medical marijuana p.r.n. 10. Lisinopril 40 mg p.o. q.p.m. 11. Lorazepam 1 mg p.o. at bedtime p.r.n. 12. Lantus insulin 30 units subcutaneously daily. 13. Gabapentin 600 mg p.o. t.i.d. 14. Finasteride 5 mg p.o. daily. 15. Famotidine 40 mg p.o. q.p.m. 16. Escitalopram 10 mg p.o. daily. 17. Dronabinol 2.5 mg p.o. t.i.d. p.r.n. 18. Cyclobenzaprine 10 mg p.o. t.i.d. 19. Cefdinir 300 mg p.o. b.i.d. ALLERGIES: CARBAMAZEPINE, SUNFLOWER OIL, LATEX, ADHESIVE TAPE, NALTREXONE, and SULFA. FAMILY HISTORY: The patient's mother in her 70s of pancreatic cancer. The patient's father at 75 of Alzheimer's. SOCIAL HISTORY: The patient has approximately 50 pack year smoking history. He reported at his previous admission that he still smoked occasionally, but it is unclear if he is doing that now. No report of alcohol or drug use. He does do the medical marijuana. He states that, at least in the previous hospitalization that his surrogate decision maker was his son, Rodolfo. REVIEW OF SYSTEMS: Unobtainable today. PHYSICAL EXAMINATION GENERAL: Mr. Matias is lying in the bed with his eyes open. His pupils are pinpoint. He responds to verbal stimulus and states that he is in the hospital at [facility]. 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 He is noted to move his lower extremities minimally. There is no facial asymmetry. Again the pupils are pinpoint. VITAL SIGNS: Temperature 97.4, pulse rate 67, respiratory rate 11, O2 saturation 100% on 2 L nasal cannula, blood pressure 93/56. LUNGS: Clear to auscultation bilaterally, had no accessory muscle use and good aeration. HEART: S1, S2. No murmur, rub, or gallop and regular. ABDOMEN: Soft, nontender with bowel sounds positive x4. EXTREMITIES: No cyanosis. Positive for edema to the left lower extremity. SKIN: The patient has a healing ulcer to his left heel. There is no erythema, no drainage, but it is quite extensive. DIAGNOSTIC STUDIES/LAB DATA: WBC 10.0, hemoglobin 10.4, hematocrit 31, platelet count 189. Sodium 138, potassium 3.9, chloride 109, serum bicarbonate 24, BUN 20, creatinine 0.60, glucose 107, lactic acid 1.5. Troponin 0.01. Urine shows no evidence of infection. CT of brain shows no acute intracranial abnormality. No interval change. The chest x-ray shows no clear change from previous. The chest x-ray reflects fluid overload with possible pulmonary edema. EKG shows sinus rhythm with no evidence of ischemia. ASSESSMENT AND PLAN: Mr. Matias is a 63-year-old male with past medical history of metastatic pancreatic cancer and type 2 diabetes, which is insulin- dependent, who presents to the hospital today with concern for an episode, where he was found on the floor minimally to nonresponsive. He was hypotensive on way into the hospital via EMS today, but is doing little bit better after IV fluids. Our plans are for inpatient admission to the intensive care unit for the followin. Altered mental status with hypotension. I suspect that his symptoms are related to an overdose of his routine narcotics that he takes for pain related to his metastatic pancreatic cancer, falls, and back pain. At this time, he is responsive to voice and answering some brief questions appropriately. He is following commands. He is not hypotensive at this point with blood pressure running in the 90s. Plan to admit him to the intensive care unit for close monitoring overnight. He will have intravenous fluids. He does not need Narcan , given that he is alert, awake enough to answer questions, and he reportedly has an allergy to NALTREXONE, which is described as swelling. Fortunately, he does not need that at this point. Other possibilities are that he has a brewing infection. His left heel wound does not appear acutely infected, but given the severity of his illness and his hypotension, we will treat with antibiotics at least through the night with vancomycin, cefepime, and this can be deescalated tomorrow if possible. His lactic acid is normal. Blood cultures were sent. The patient will be n.p.o. 2. Lower extremity swelling. The patient's left lower extremity is swollen and warm. It appears that from the documentation that perhaps it was that way at his last admission as well. Given his high risk for DVT, we will check a lower extremity Doppler. 3. Question cellulitis: Again, I do not have a high suspicion for cellulitis, but given the severity of his illness, we will treat with vanco and cefepime until further evaluation tomorrow. 4. Type 2 diabetes. Plan to hold his home medications. He will have blood glucoses q.a.c. with lispro sliding scale. I am not ordering Lantus at this point as I am unclear what his oral intake will be, but this could be added based on followup of his blood sugars. 5. DVT prophylaxis with heparin subcu. 6. Code status is full code as I could determine from the record. There is no MOLST form on file. 7. Disposition. ICU. TIME SPENT: Approximately 60 minutes was spent on the admission of this patient ; more than half of the time was spent with the patient at the bedside reviewing the events leading up to this hospitalization with him and the staff, performing the physical examination, and reviewing the plan of care with him and the staff. IZZY PEARSON, MACEY [id number]/[facility] #: [id number] FLAVIO
[2019-03-01] MEDS ORDERED: Norepinephrine 16MCG/ML IVPRE* 4,000 MCG/250 ML BAG IV SCH (23:00)
[2019-03-01] MEDS ORDERED: Norepinephrine 16MCG/ML IVPRE* 4,000 MCG/250 ML BAG IV ONE (23:12)
[2019-03-02] MEDS: Vancomycin(*) 1,000 MG in NS 0.9% 250 ML* 250 ML IVPB SCH ×4 (03:24→23:11)
[2019-03-02] MEDS: NS 0.9% 1000 ML** 1,000 ML IV SCH (05:18)
[2019-03-02] MEDS: Heparin VIAL(*) 5000 UNITS/ML VIAL (FIVE THOUSAND) SUBCUT SCH (05:38)
[2019-03-02 05:40] LABS: ABS Basophils 0.1 10^3/ul (0-0.2); ABS Eosinophils 0.2 10^3/ul (0-0.6); ABS Lymphocytes 1.7 10^3/ul (1.0-4.8); ABS Neutrophils 5.9 10^3/ul (1.5-7.7); Eosinophil % 2.6 %; Hematocrit 31 % (42-52); Lymphocyte % 18.8 %; Mean Corpuscular HGB Conc 33 g/dL (31-36); Mean Corpuscular Hemoglobin 30 pg (27-31); Mean Corpuscular Volume 93 fL (80-94); Mean Platelet Volume 7.2 fL (7.4-10.4); Platelet Count 178 10^3/uL (150-450); Red Blood Count 3.29 10^6 /uL (4.18-5.48); Red Cell Distribution Width 19 % (10-15); White Blood Count 8.8 10^3/uL (3.5-10.8)
[2019-03-02 05:57] LABS: BUN/Creatinine Ratio 27.7 (8-20); Calcium 7.6 mg/dL (8.6-10.3); EGFR African American 218.2 (>60); EGFR Non-African American 180.4 (>60); Potassium 3.6 mmol/L (3.5-5.0)
[2019-03-02] MEDS ORDERED: D5W 1/2 NS 1000 ML BAG* 1,000 ML IV SCH (06:20)
[2019-03-02] MEDS ORDERED: Dextrose 50% VIAL 50 ml IV PUSH PRN ×2 (06:20→11:00)
[2019-03-02] MEDS ORDERED: Dextrose 50% VIAL 50 ml IV PUSH ONE (06:20)
[2019-03-02] MEDS: Insulin LISPRO* 1 UNITS UNIT SUBCUT SCH ×3 (07:29→17:26)
[2019-03-02] MEDS: Cefepime 1 GM in Dextrose(*) 1 GM/50 ML BAG IV SCH ×2 (07:40→22:24)
--- NOTE | 2019-03-02 09:27 | PN ---
Progress Note - Progress Note Date of Service: 03/02/19 SOAP: Subjective: []Admitted yesterday evening with AMS and hypotension after being found on the floor minimally responsive. Required short period of pressor support overnight. Hypoglycemia this AM requiring D51/2NS, now resolved. This is his 4th admission in the last 2 mo. He left AMA 02/25/19. Rodolfo does not recall falling or what led to the fall. His son states he witnessed the fall and could not get his father up. Rodolfo states he wants to go home, "I can do everything you're doing." Upon discussion of hypotension in relation to narcotics vs. infection Rodolfo admits he took all of pain meds at the same time last night, "I guess I should split them up." Medicaitons: Dextrose (Dextrose 50% Vial 50 Ml*) 25 ml IV PUSH .FOR FS < 60 - SS PRN PRN Reason: FS < 60 Last Admin: 03/02/19 06:02 Dose: 25 ml Dextrose (Dextrose 50% Vial 50 Ml*) 25 ml IV PUSH ONCE PRN PRN Reason: BLOOD GLUCOSE < 65 Stop: 03/02/19 23:59 Heparin Sodium (Porcine) (Heparin Vial(*)) 5,000 units SUBCUT Q8HR [facility] Last Admin: 03/02/19 05:38 Dose: 5,000 units Cefepime HCl (Maxipime 1 Gm In Dextrose Duplex (*)) 1 gm in 50 mls @ 100 mls/ hr IV Q12H [facility] Last Admin: 03/02/19 07:40 Dose: 100 mls/hr Vancomycin HCl 1,000 mg/ (Sodium Chloride) 250 mls @ 166.667 mls/hr IVPB Q6H [facility] Last Admin: 03/02/19 08:24 Dose: 166.667 mls/hr Insulin Human Lispro (Humalog*) 0 units SUBCUT AC [facility]; Protocol Last Admin: 03/02/19 07:29 Dose: Not Given Pharmacy Consult (Vancomycin Per Pharmacy*) 1 note FOLLOW UP .VANC PER PHARMACY [facility]; Protocol Pharmacy Profile Note (Vancomycin Trough Check) 1 note FOLLOW UP 1500 ONE Stop: 03/02/19 15:01 Objective: [] Vital Signs Temp Pulse Resp BP Pulse Ox 98.1 F 65 10 133/61 98 03/02/19 08:00 03/02/19 09:01 03/02/19 09:01 03/02/19 09:01 03/02/19 09:01 A&Ox3, EOMI, pupils pinpoint but reactive Flat affect. DOWD, notably weak HRR, S1S2, SR on tele LS dim. +BS, soft and non-tender Bilat. LE edema with mikaela appearance of left, dry skin Heel protectors in place Laboratory Results - last 24 hr 03/01/19 03/01/19 03/01/19 17:51 18:03 18:03 WBC 10.0 RBC 3.41 L Hgb 10.4 L Hct 31 L MCV 92 MCH 30 MCHC 33 RDW 19 H Plt Count 189 MPV 7.9 Neut % (Auto) 64.4 Lymph % (Auto) 20.8 [place] % (Auto) 11.5 Eos % (Auto) 2.1 Baso % (Auto) 1.2 Absolute Neuts (auto) 6.4 Absolute Lymphs (auto) 2.1 Absolute Monos (auto) 1.1 H Absolute Eos (auto) 0.2 Absolute Basos (auto) 0.1 Absolute Nucleated RBC 0.0 Nucleated RBC % 0.0 Sodium 138 Potassium 3.9 Chloride 109 Carbon Dioxide 24 Anion Gap 5 BUN 20 Creatinine 0.60 L Est GFR ( Amer) 164.7 Est GFR (Non-Af Amer) 136.1 BUN/Creatinine Ratio 33.3 H Glucose 107 H POC Glucose (mg/dL) 130 H Lactic Acid Calcium 8.1 L Total Bilirubin 0.40 AST 26 ALT 37 Alkaline Phosphatase 1184 H Ammonia Troponin I 0.01 Total Protein 5.0 L Albumin 2.6 L Globulin 2.4 Albumin/Globulin Ratio 1.1 Urine Color Urine Appearance Urine pH Ur Specific [place] Urine Protein Urine Ketones Urine Blood Urine Nitrate Urine Bilirubin Urine Urobilinogen Ur Leukocyte Esterase Urine WBC (Auto) Urine RBC (Auto) Calcium Oxalate Crystal Urine Bacteria Hyaline Casts Urine Glucose Urine Ascorbic Acid 03/01/19 03/01/19 03/01/19 18:03 18:03 20:00 WBC RBC Hgb Hct MCV MCH MCHC RDW Plt Count MPV Neut % (Auto) Lymph % (Auto) [place] % (Auto) Eos % (Auto) Baso % (Auto) Absolute Neuts (auto) Absolute Lymphs (auto) Absolute Monos (auto) Absolute Eos (auto) Absolute Basos (auto) Absolute Nucleated RBC Nucleated RBC % Sodium Potassium Chloride Carbon Dioxide Anion Gap BUN Creatinine Est GFR ( Amer) Est GFR (Non-Af Amer) BUN/Creatinine Ratio Glucose POC Glucose (mg/dL) Lactic Acid 1.5 Calcium Total Bilirubin AST ALT Alkaline Phosphatase Ammonia 45 Troponin I Total Protein Albumin Globulin Albumin/Globulin Ratio Urine Color Yellow Urine Appearance Cloudy Urine pH 5.0 Ur Specific [place] 1.017 Urine Protein Negative Urine Ketones Negative Urine Blood 2+ A Urine Nitrate Negative Urine Bilirubin Negative Urine Urobilinogen Negative Ur Leukocyte Esterase Negative Urine WBC (Auto) 1+(6-10/hpf) A Urine RBC (Auto) 3+(>10/hpf) A Calcium Oxalate Crystal Present A Urine Bacteria Absent Hyaline Casts Present A Urine Glucose 3+(>=500 mg/dl) A Urine Ascorbic Acid * A 03/02/19 03/02/19 03/02/19 05:25 05:25 06:19 WBC 8.8 RBC 3.29 L Hgb 10.0 L Hct 31 L MCV 93 MCH 30 MCHC 33 RDW 19 H Plt Count 178 MPV 7.2 L Neut % (Auto) 66.4 Lymph % (Auto) 18.8 [place] % (Auto) 11.3 Eos % (Auto) 2.6 Baso % (Auto) 0.9 Absolute Neuts (auto) 5.9 Absolute Lymphs (auto) 1.7 Absolute Monos (auto) 1.0 H Absolute Eos (auto) 0.2 Absolute Basos (auto) 0.1 Absolute Nucleated RBC 0.0 Nucleated RBC % 0.0 Sodium 141 Potassium 3.6 Chloride 114 H Carbon Dioxide 24 Anion Gap 3 BUN 13 Creatinine 0.47 L Est GFR ( Amer) 218.2 Est GFR (Non-Af Amer) 180.4 BUN/Creatinine Ratio 27.7 H Glucose 45 L* POC Glucose (mg/dL) 64 L Lactic Acid Calcium 7.6 L Total Bilirubin AST ALT Alkaline Phosphatase Ammonia Troponin I Total Protein Albumin Globulin Albumin/Globulin Ratio Urine Color Urine Appearance Urine pH Ur Specific [place] Urine Protein Urine Ketones Urine Blood Urine Nitrate Urine Bilirubin Urine Urobilinogen Ur Leukocyte Esterase Urine WBC (Auto) Urine RBC (Auto) Calcium Oxalate Crystal Urine Bacteria Hyaline Casts Urine Glucose Urine Ascorbic Acid 03/02/19 07:23 WBC RBC Hgb Hct MCV MCH MCHC RDW Plt Count MPV Neut % (Auto) Lymph % (Auto) [place] % (Auto) Eos % (Auto) Baso % (Auto) Absolute Neuts (auto) Absolute Lymphs (auto) Absolute Monos (auto) Absolute Eos (auto) Absolute Basos (auto) Absolute Nucleated RBC Nucleated RBC % Sodium Potassium Chloride Carbon Dioxide Anion Gap BUN Creatinine Est GFR ( Amer) Est GFR (Non-Af Amer) BUN/Creatinine Ratio Glucose POC Glucose (mg/dL) 83 Lactic Acid Calcium Total Bilirubin AST ALT Alkaline Phosphatase Ammonia Troponin I Total Protein Albumin Globulin Albumin/Globulin Ratio Urine Color Urine Appearance Urine pH Ur Specific [place] Urine Protein Urine Ketones Urine Blood Urine Nitrate Urine Bilirubin Urine Urobilinogen Ur Leukocyte Esterase Urine WBC (Auto) Urine RBC (Auto) Calcium Oxalate Crystal Urine Bacteria Hyaline Casts Urine Glucose Urine Ascorbic Acid Assessment: []63 yo male with stage IV pancreatic cancer with progressive decline in performance status over last several months with multiple compression fractures presenting to the ED yesterday via EMS d/t AMS and hypotension requiring pressor support now stabilized. Plan: []1. AMS & hypotension: agree with treating for cellulitis, recommend continuing IV abx. for 24 hrs - will resume some home meds and monitor BP closely 2. Advanced cancer: performance status likely limits our ability to tx. cancer - palliative care consult regarding code and goals of care though I suspect he will want to continue to be aggressive despite his decline and difficulty in caring for himself appropriately 3. Compression fractures: - TLSO brace previously recommended, he has not been using - PT & OT consult - resume some narcotics, but at lower dose for now Dispo: transfer out of ICU to medical floor, cont. tele monitoring - social work consult regarding safe discharge
[2019-03-02] MEDS ORDERED: Dronabinol CAP* 2.5 MG PO PRN (10:12)
[2019-03-02] MEDS: Morphine ORAL.SOLN 10 mg* 2 MG/ML UDC 5 ml PO PRN (13:21)
[2019-03-02] MEDS ORDERED: Vancomycin Trough Check NOTE FOLLOW UP ONE (15:00)
[2019-03-02] MEDS ORDERED: Warfarin TAB(*) 4 MG PO SCH (17:00)
[2019-03-02] MEDS: risperiDONE TAB* 2 MG PO SCH (17:25)
[2019-03-02] MEDS: MORPHINE 100 MG PO SCH (22:25)
[2019-03-03] MEDS: Morphine ORAL.SOLN 10 mg* 2 MG/ML UDC 5 ml PO PRN ×2 (01:09→17:09)
[2019-03-03] MEDS: Vancomycin(*) 1,000 MG in NS 0.9% 250 ML* 250 ML IVPB SCH ×4 (03:11→23:04)
[2019-03-03 06:39] LABS: ABS Basophils 0.1 10^3/ul (0-0.2); ABS Eosinophils 0.1 10^3/ul (0-0.6); ABS Lymphocytes 1.4 10^3/ul (1.0-4.8); ABS Monocytes 0.7 10^3/ul (0-0.8); ABS Neutrophils 3.3 10^3/ul (1.5-7.7); Eosinophil % 2.7 %; Hematocrit 30 % (42-52); Hemoglobin 9.8 g/dL (14.0-18.0); Lymphocyte % 25.4 %; Mean Corpuscular HGB Conc 33 g/dL (31-36); Mean Corpuscular Hemoglobin 30 pg (27-31); Mean Corpuscular Volume 91 fL (80-94); Mean Platelet Volume 7.8 fL (7.4-10.4); Nucleated Red Blood Cells % 0.1; Platelet Count 142 10^3/uL (150-450); Red Blood Count 3.25 10^6 /uL (4.18-5.48); Red Cell Distribution Width 18 % (10-15); White Blood Count 5.5 10^3/uL (3.5-10.8)
[2019-03-03 06:49] LABS: INR 4.77 (0.82-1.09)
[2019-03-03 07:15] LABS: Albumin 2.3 g/dL (3.2-5.2); BUN/Creatinine Ratio 18.6 (8-20); Calcium 7.8 mg/dL (8.6-10.3); EGFR African American 241.8 (>60); EGFR Non-African American 199.9 (>60); Globulin 2.3 g/dL (2-4); Potassium 3.2 mmol/L (3.5-5.0); Total Bilirubin 0.5 mg/dL (0.2-1.0); Total Protein 4.6 g/dL (6.4-8.9)
[2019-03-03] MEDS: Insulin LISPRO* 1 UNITS UNIT SUBCUT SCH ×3 (08:50→17:09)
[2019-03-03] MEDS: MORPHINE 100 MG PO SCH ×2 (09:55→22:07)
[2019-03-03] MEDS: Escitalopram * 10 MG TAB PO SCH (09:55)
[2019-03-03] MEDS: Cefepime 1 GM in Dextrose(*) 1 GM/50 ML BAG IV SCH ×2 (09:55→22:08)
[2019-03-03] MEDS: Tamsulosin CAP* 0.4 MG PO SCH (09:55)
--- NOTE | 2019-03-03 12:55 | CONSULT ---
Consult Consult: Consult for Medical Decision Making Capacity S: Psychiatry is asked to evaluate capacity in this 63 y.o. , white male with a history of end-stage metastatic pancreatic cancer who is hospitalized on the oncology service following a fall in his home. The patient has had limitations in self-care in the home setting that have led to several inpatient stays [place] [facility] in fact, he was just hospitalized under similar circumstances last week. As per the primary team, the patient is requesting to leave AMA and has refused placement in an SNF. In going home they express that he risks falls, infectious disease, head injuries and . On exam the patient is open and cooperative. "Look, I know I've only got 6 months to live and I don't want to spend them at a half-way." He is aware that he has very serious pancreatic cancer with mets to his liver. He blames his falls on poor glucose control and the fact that his walker does not fit in the hallways of his home. When asked about the risks of going home he appropriately cites the dangers of further falling. As a mitigation strategy for these risks he notes that his son works from the home and is only gone 2 hours a day. He also has an aide 7 days a week and is open to getting additional resources through home hospice. He is completely alert to time, place and situation. O: bearded, aging white male, dressed in patient gown; fair grooming; calm, cooperative; euthymic with full affect; denies SI or HI; insight and judgment limited given refusal of SNF referral; awake and alert; good attention and recall; oriented to person/place/situation/time A/P: Capacity: the patient is alert and conversant. He has an excellent grasp on his diagnosis and prognosis. He is completely oriented with no deficits in cognition noted on exam. He is refusing SNF placement at this time and, in my judgment, has the capacity to do so, based on his demonstrated understanding of the risk/benefit appraisal of his situation, including the risks of going home. Capacity is subject to change in these situations and psychiatry can be re- consulted in the event of any significant changes in her presentation/ situation. I have discussed my findings with the patient, [address] [place] [address] staff and oncology attending Robe Keating. Thanks for the consult.
--- NOTE | 2019-03-03 14:46 | CONSULT ---
Palliative / Hospice Consult Ordering Provider: Robe Keating - PCP-Natali Referal Reason: Goals of care discussion - Subjective Code Status: Full Code Advance Directives Location: No Advance Directives - History or Present Illness History or Present Illness: 63yo male with stage 4 pancreatic cancer presents to ER after being found on the floor minimally responsive in is home. Pt recently left AMA 02/25/19 during his hospitalization for cellulitis. PMH is significant for treatment with chemo and radiation of pancreatic ca, type 2 diabetes insulin dependent, HTN, h/o DVT , peripheral neuropathy, vertebral fracture and history of kidney stone. Pt is a smoker, no etoh, marijuana user, he is with 4 children. He is a retired clinical psychologist and lives with one of his sons who is his continuous loft operator. Studies; ekg-nsr, brain CT neg, CXR-L basilar atelectasis, venous doppler chronic thrombosis, H/H 9.8/30, BUN/Cr 8/.41, egfr 199.9, Ca 7.8, tprot 4.6 and alb 2.3. Pt has been hospitalized 12/21-11/07 for weakness, 02/02- for vertebral fx, 02/17-02/25 for cellulitis L lower leg and has had 4 ER visits for various pains. All history is from pt and medical records. Pt is currently admitted to the ICU with AMS secondary to improper medication use and lower leg edema, pt has been transferred to a medical floor. Lab Values: Abnormal Lab Results 03/02/19 03/02/19 03/02/19 14:28 17:11 18:30 WBC RBC Hgb Hct MCV MCH MCHC RDW Plt Count MPV Neut % (Auto) Lymph % (Auto) [place] % (Auto) Eos % (Auto) Baso % (Auto) Absolute Neuts (auto) Absolute Lymphs (auto) Absolute Monos (auto) Absolute Eos (auto) Absolute Basos (auto) Absolute Nucleated RBC Nucleated RBC % INR (Anticoag Therapy) Sodium Potassium Chloride Carbon Dioxide Anion Gap BUN Creatinine Est GFR ( Amer) Est GFR (Non-Af Amer) BUN/Creatinine Ratio Glucose POC Glucose (mg/dL) 60 L 158 H Calcium Total Bilirubin AST ALT Alkaline Phosphatase Total Protein Albumin Globulin Albumin/Globulin Ratio Vancomycin Trough 16.5 03/03/19 03/03/19 03/03/19 06:28 06:28 06:28 WBC 5.5 RBC 3.25 L Hgb 9.8 L Hct 30 L MCV 91 MCH 30 MCHC 33 RDW 18 H Plt Count 142 L MPV 7.8 Neut % (Auto) 59.0 Lymph % (Auto) 25.4 [place] % (Auto) 11.8 Eos % (Auto) 2.7 Baso % (Auto) 1.1 Absolute Neuts (auto) 3.3 Absolute Lymphs (auto) 1.4 Absolute Monos (auto) 0.7 Absolute Eos (auto) 0.1 Absolute Basos (auto) 0.1 Absolute Nucleated RBC 0.0 Nucleated RBC % 0.1 INR (Anticoag Therapy) 4.77 H Sodium 139 Potassium 3.2 L Chloride 110 Carbon Dioxide 25 Anion Gap 4 BUN 8 Creatinine 0.43 L Est GFR ( Amer) 241.8 Est GFR (Non-Af Amer) 199.9 BUN/Creatinine Ratio 18.6 Glucose 86 POC Glucose (mg/dL) Calcium 7.8 L Total Bilirubin 0.50 AST 68 H ALT 56 H Alkaline Phosphatase 1175 H Total Protein 4.6 L Albumin 2.3 L Globulin 2.3 Albumin/Globulin Ratio 1.0 Vancomycin Trough 03/03/19 03/03/19 07:32 11:45 WBC RBC Hgb Hct MCV MCH MCHC RDW Plt Count MPV Neut % (Auto) Lymph % (Auto) [place] % (Auto) Eos % (Auto) Baso % (Auto) Absolute Neuts (auto) Absolute Lymphs (auto) Absolute Monos (auto) Absolute Eos (auto) Absolute Basos (auto) Absolute Nucleated RBC Nucleated RBC % INR (Anticoag Therapy) Sodium Potassium Chloride Carbon Dioxide Anion Gap BUN Creatinine Est GFR ( Amer) Est GFR (Non-Af Amer) BUN/Creatinine Ratio Glucose POC Glucose (mg/dL) 101 H 180 H Calcium Total Bilirubin AST ALT Alkaline Phosphatase Total Protein Albumin Globulin Albumin/Globulin Ratio Vancomycin Trough Laboratory Last Values WBC 5.5 10^3/uL (3.5-10.8) 03/03/19 06:28 RBC 3.25 10^6 /uL (4.18-5.48) L 03/03/19 06:28 Hgb 9.8 g/dL (14.0-18.0) L 03/03/19 06:28 Hct 30 % (42-52) L 03/03/19 06:28 MCV 91 fL (80-94) 03/03/19 06:28 MCH 30 pg (27-31) 03/03/19 06:28 MCHC 33 g/dL (31-36) 03/03/19 06:28 RDW 18 % (10-15) H 03/03/19 06:28 Plt Count 142 10^3/uL (150-450) L 03/03/19 06:28 MPV 7.8 fL (7.4-10.4) 03/03/19 06:28 Neut % (Auto) 59.0 % 03/03/19 06:28 Lymph % (Auto) 25.4 % 03/03/19 06:28 [place] % (Auto) 11.8 % 03/03/19 06:28 Eos % (Auto) 2.7 % 03/03/19 06:28 Baso % (Auto) 1.1 % 03/03/19 06:28 Absolute Neuts (auto) 3.3 10^3/ul (1.5-7.7) 03/03/19 06:28 Absolute Lymphs (auto) 1.4 10^3/ul (1.0-4.8) 03/03/19 06:28 Absolute Monos (auto) 0.7 10^3/ul (0-0.8) 03/03/19 06:28 Absolute Eos (auto) 0.1 10^3/ul (0-0.6) 03/03/19 06:28 Absolute Basos (auto) 0.1 10^3/ul (0-0.2) 03/03/19 06:28 Absolute Nucleated RBC 0.0 10^3/ul 03/03/19 06:28 Nucleated RBC % 0.1 03/03/19 06:28 INR (Anticoag Therapy) 4.77 (0.82-1.09) H 03/03/19 06:28 Sodium 139 mmol/L (135-145) 03/03/19 06:28 Potassium 3.2 mmol/L (3.5-5.0) L 03/03/19 06:28 Chloride 110 mmol/L (101-111) 03/03/19 06:28 Carbon Dioxide 25 mmol/L (22-32) 03/03/19 06:28 Anion Gap 4 mmol/L (2-11) 03/03/19 06:28 BUN 8 mg/dL (6-24) 03/03/19 06:28 Creatinine 0.43 mg/dL (0.67-1.17) L 03/03/19 06:28 Est GFR ( Amer) 241.8 (>60) 03/03/19 06:28 Est GFR (Non-Af Amer) 199.9 (>60) 03/03/19 06:28 BUN/Creatinine Ratio 18.6 (8-20) 03/03/19 06:28 Glucose 86 mg/dL (70-100) 03/03/19 06:28 POC Glucose (mg/dL) 180 mg/dL (70-100) H 03/03/19 11:45 Lactic Acid 1.5 mmol/L (0.5-2.0) 03/01/19 18:03 Calcium 7.8 mg/dL (8.6-10.3) L 03/03/19 06:28 Total Bilirubin 0.50 mg/dL (0.2-1.0) 03/03/19 06:28 AST 68 U/L (13-39) H 03/03/19 06:28 ALT 56 U/L (7-52) H 03/03/19 06:28 Alkaline Phosphatase 1175 U/L (34-104) H 03/03/19 06:28 Ammonia 45 mcmol/L (16-53) 03/01/19 18:03 Troponin I 0.01 ng/mL (<0.04) 03/01/19 18:03 Total Protein 4.6 g/dL (6.4-8.9) L 03/03/19 06:28 Albumin 2.3 g/dL (3.2-5.2) L 03/03/19 06:28 Globulin 2.3 g/dL (2-4) 03/03/19 06:28 Albumin/Globulin Ratio 1.0 (1-3) 03/03/19 06:28 Urine Color Yellow 03/01/19 20:00 Urine Appearance Cloudy 03/01/19 20:00 Urine pH 5.0 (5-9) 03/01/19 20:00 Ur Specific [place] 1.017 (1.010-1.030) 03/01/19 20:00 Urine Protein Negative (Negative) 03/01/19 20:00 Urine Ketones Negative (Negative) 03/01/19 20:00 Urine Blood 2+ (Negative) A 03/01/19 20:00 Urine Nitrate Negative (Negative) 03/01/19 20:00 Urine Bilirubin Negative (Negative) 03/01/19 20:00 Urine Urobilinogen Negative (Negative) 03/01/19 20:00 Ur Leukocyte Esterase Negative (Negative) 03/01/19 20:00 Urine WBC (Auto) 1+(6-10/hpf) (Absent) A 03/01/19 20:00 Urine RBC (Auto) 3+(>10/hpf) (Absent) A 03/01/19 20:00 Calcium Oxalate Crystal Present (Absent) A 03/01/19 20:00 Urine Bacteria Absent (Absent) 03/01/19 20:00 Hyaline Casts Present (Absent) A 03/01/19 20:00 Urine Glucose 3+(>=500 mg/dl) (Negative) A 03/01/19 20:00 Urine Ascorbic Acid * (Negative) A 03/01/19 20:00 Vancomycin Trough 16.5 mcg/mL 03/02/19 14:28 - Objective Active Medications: Dextrose (Dextrose 50% Vial 50 Ml*) 25 ml IV PUSH .FOR FS < 65 - SS PRN PRN Reason: FS < 65 Last Admin: 03/02/19 17:25 Dose: 25 ml Dronabinol (Marinol Cap*) 2.5 mg PO TID PRN PRN Reason: nausea/appetite Escitalopram Oxalate (Lexapro *) 10 mg PO DAILY [facility] Last Admin: 03/03/19 09:55 Dose: 10 mg Cefepime HCl (Maxipime 1 Gm In Dextrose Duplex (*)) 1 gm in 50 mls @ 100 mls/ hr IV Q12H [facility] Last Admin: 03/03/19 09:55 Dose: 100 mls/hr Vancomycin HCl 1,000 mg/ (Sodium Chloride) 250 mls @ 166.667 mls/hr IVPB Q6H [facility] Last Admin: 03/03/19 09:55 Dose: 166.667 mls/hr Insulin Human Lispro (Humalog*) 0 units SUBCUT AC [facility]; Protocol Last Admin: 03/03/19 12:39 Dose: 2 units Morphine Sulfate (Morphine Oral.Soln 10 Mg*) 30 mg PO Q6H PRN PRN Reason: PAIN Last Admin: 03/03/19 01:09 Dose: 30 mg Morphine Sulfate (Ms Contin(*)) 100 mg PO BID [facility] Last Admin: 03/03/19 09:55 Dose: 100 mg Pharmacy Consult (Vancomycin Per Pharmacy*) 1 note FOLLOW UP .VANC PER PHARMACY [facility]; Protocol Risperidone (Risperdal*) 2 mg PO QPM [facility] Last Admin: 03/02/19 17:25 Dose: 2 mg Tamsulosin HCl (Flomax Cap*) 0.8 mg PO DAILY [facility] Last Admin: 03/03/19 09:55 Dose: 0.8 mg Warfarin Sodium (Coumadin Tab(*)) 2 mg PO 1700 [facility]; Protocol Vital Signs: Vital Signs: Temp Pulse Resp BP Pulse Ox 98.5 F 102 18 145/70 100 03/03/19 08:00 03/03/19 08:00 03/03/19 12:41 03/03/19 08:00 03/03/19 08:00 Patient Weight: Weight 98.43 kg Intake and Output: Intake & Output 03/01/19 03/02/19 03/03/19 03/04/19 06:59 06:59 06:59 06:59 Intake Total 2546 220 75 Output Total 1445 1400 175 Balance 1101 -1180 -100 Weight 98.43 kg Intake: IV Fluids 2050 NS 0.9% 2050 Medicated IV 495 LEVOPHED 193 VANCO 252 cefipime 50 Oral 220 75 Output: Urine 425 175 Roman 1445 975 Other: Estimated Void Medium Date of Last Bowel 03/03/19 Movement # Bowel Movements 0 Estimated Stool Amount Small # Voids 0 ADLs: Meal Record Start: 03/01/19 20: 59 Freq: ,,18 Status: Active Protocol: Created 03/01/19 20:59 System (Rec: 03/01/19 20:59 System ICU-C25) Document 03/02/19 09:00 [id number] (Rec: 03/02/19 09:39 [id number] ICU-C15) Document 03/02/19 13:00 [id number] (Rec: 03/02/19 13:36 [id number] [facility] ) Document 03/02/19 18:00 [id number] (Rec: 03/02/19 18:26 [id number] MED-C13) Document 03/03/19 09:05 [id number] (Rec: 03/03/19 09:06 [id number] MED-C09) Intake and Output Start: 03/01/19 18: 07 Freq: Status: Active Protocol: Created 03/01/19 18:07 System (Rec: 03/01/19 18:07 System [id number]) Document 03/01/19 21:00 [id number] (Rec: 03/01/19 21:00 [id number] ED-C18) Intake and Output Start: 03/01/19 20: 59 Freq: Q1HR Status: Active Protocol: Created 03/01/19 20:59 System (Rec: 03/01/19 20:59 System ICU-C25) Document 03/01/19 21:00 [id number] (Rec: 03/01/19 22:01 [id number] ISDEMO-M03 ) Document 03/01/19 22:00 [id number] (Rec: 03/01/19 22:02 [id number] ISDEMO-M03 ) Document 03/01/19 23:00 [id number] (Rec: 03/01/19 23:06 [id number] ISDEMO-M03 ) Document 03/01/19 23:54 [id number] (Rec: 03/01/19 23:56 [id number] ISDEMO-M03 ) Document 03/02/19 01:00 [id number] (Rec: 03/02/19 01:02 [id number] ICU-C12) Document 03/02/19 02:00 [id number] (Rec: 03/02/19 02:25 [id number] ISDEMO-M03 ) Document 03/02/19 03:00 [id number] (Rec: 03/02/19 03:17 [id number] ICU-C12) Document 03/02/19 04:00 [id number] (Rec: 03/02/19 04:36 [id number] ICU-C12) Document 03/02/19 05:00 [id number] (Rec: 03/02/19 05:17 [id number] ISDEMO-M03 ) Document 03/02/19 06:00 [id number] (Rec: 03/02/19 06:13 [id number] ISDEMO-M03 ) Document 03/02/19 07:00 [id number] (Rec: 03/02/19 07:09 [id number] ICU-C15) Document 03/02/19 07:51 [id number] (Rec: 03/02/19 08:14 [id number] ICU-C15) Document 03/02/19 09:00 [id number] (Rec: 03/02/19 09:12 [id number] ICU-C15) Document 03/02/19 10:00 [id number] (Rec: 03/02/19 10:45 [id number] ICU-C15) Document 03/02/19 11:00 [id number] (Rec: 03/02/19 11:04 [id number] ICU-C15) Document 03/02/19 12:10 [id number] (Rec: 03/02/19 12:10 [id number] ICU-C15) Document 03/02/19 13:00 [id number] (Rec: 03/02/19 13:36 [id number] ISDEMO-M03 ) Document 03/02/19 14:00 [id number] (Rec: 03/02/19 14:33 [id number] ICU-C15) Document 03/02/19 17:00 [id number] (Rec: 03/02/19 17:40 [id number] MED-C13) Document 03/02/19 18:00 [id number] (Rec: 03/02/19 18:26 [id number] MED-C13) Document 03/02/19 20:00 [id number] (Rec: 03/02/19 20:43 [id number] MED-C05) Document 03/02/19 21:00 [id number] (Rec: 03/02/19 21:47 [id number] MED-C11) Document 03/03/19 00:00 [id number] (Rec: 03/03/19 00:13 [id number] MED-C11) Document 03/03/19 01:00 [id number] (Rec: 03/03/19 01:07 [id number] MED-C11) Document 03/03/19 02:00 [id number] (Rec: 03/03/19 05:58 [id number] MED-C05) Document 03/03/19 03:00 [id number] (Rec: 03/03/19 05:58 [id number] MED-C05) Document 08/13/19 04:00 [id number] (Rec: 03/03/19 06:32 [id number] MED-C11) Document 03/03/19 05:00 [id number] (Rec: 03/03/19 06:33 [id number] MED-C11) Document 03/03/19 06:00 [id number] (Rec: 03/03/19 06:33 [id number] MED-C11) Document 03/03/19 08:16 [id number] (Rec: 03/03/19 08:16 [id number] MED-C09) Neck: NL Appearance and Movements; NL JVP Cardiovascular: NL Sounds; No Murmurs; No JVD Respiratory: Clear to Auscultation Abdominal: NL Sounds; No Tenderness; No Distention Neurological: Alert and Oriented x 3 - Assessment Assessment: 63yo male with stage 4 pancreatic cancer admitted with AMS secondary to medications and lower leg edema hospice eligible - Plan Consult Plan (MU): Hospice Plan: Long discussion with pt about goals of care. When asked about MOLST form pt stated he didn't want CPR or intubation but said he couldn't complete the form because of an insurance policy that would only pay out if he lived until 65yo?? ? Pt is adamant about wanting to go home. He said he was given a 6 month life expectancy with his cancer. There is a lot of concern for the pt that his living environment is not safe and that he keeps returning to the hospital. Hospice information/brochure was given. Pt is agreeable to hospice and referral for home hospice has been sent. pt says he has a hospital bed but would like a walker. I contacted the son who said with [facility] his father had qualified for 43 hrs/wk for home care but they have not had an aide since . Son was going to contact [facility] about finding an aide. Son is saying he is not able to provide 24hr care for his father. We are meeting tomorrow at 10am to discuss home situation. Psychiatry has seen pt and found him to have capacity to make decisions. Pt is eligible for hospice with diagnosis of stage 4 pancreatic cancer with no further treatment options. KPS 40%, PPS 40%. - Time On Unit Date of Evaluation: 03/03/19 Hospice Consult Time in: 14:00 Hospice Consult Time Out: 15:30 Hospice Consult Time Total: 90 > 50% of Time Spend In Counseling or Coordinating Care: Yes
--- NOTE | 2019-03-03 16:52 | CONSULT ---
Subjective Date of Service: 03/03/19 Interval History: Mr. Matias is a 63 yo male with PMH significant for stage 4 pancreatic cancer on chemotherapy, renal calculi, DM2, HTN, provoked DVT, and peripheral neuropathy; who presented to the hospital after and fall and was found to be hypotensive. He was recently hospitalized from 02/01/19 to 02/03/19 for a L1 compression fracture, weakness, and falls. He was again hospitalized from -02/25/19 for left LE cellulitis. He was admitted to the hospital with concern for possible morphine overdose. Patient presented to the hospital with bilateral heel deep tissue injuries/ unstageable pressure injuries to bilateral heels. He reports that the wounds have been present for a few weeks to a month, they were documented during the previous admission last week, but not during the admission prior to that. Patient seen and examined at bedside. Family History: Unchanged from Admission Social History: Unchanged from Admission Past Medical History: Unchanged from Admission Review of Systems - Measurements Intake and Output: Intake and Output Last 24 Hours 03/01/19 03/02/19 03/03/19 03/04/19 06:59 06:59 06:59 06:59 Intake Total 2546 220 675 Output Total 1445 1400 500 Balance 1101 -1180 175 Weight 217 lb Intake: IV Fluids 2050 NS 0.9% 2050 Medicated IV 495 LEVOPHED 193 VANCO 252 cefipime 50 Oral 220 675 Output: Urine 425 500 Roman 1445 975 Other: Estimated Void Medium Small Date of Last Bowel 03/03/19 Movement # Bowel Movements 0 Estimated Stool Amount Small # Voids 0 2 - Review of Systems Constitutional Symptoms: Negative: Fever, Other - Chills Dermatology: Positive: Other - Bilateral heel wounds Endocrinology: Positive: Obesity, Diabetes Mellitus Objective Active Medications: Dextrose (Dextrose 50% Vial 50 Ml*) 25 ml IV PUSH .FOR FS < 65 - SS PRN Reason : FS < 65 Dronabinol (Marinol Cap*) 2.5 mg PO TID PRN Reason: nausea/appetite Escitalopram Oxalate (Lexapro *) 10 mg PO DAILY [facility] Cefepime HCl (Maxipime 1 Gm In Dextrose Duplex (*)) 1 gm in 50 mls @ 100 mls/ hr IV Q12H [facility] Vancomycin HCl 1,000 mg/ (Sodium Chloride) 250 mls @ 166.667 mls/hr IVPB Q6H [facility] Insulin Human Lispro (Humalog*) 0 units SUBCUT AC [facility]; Protocol Morphine Sulfate (Morphine Oral.Soln 10 Mg*) 30 mg PO Q6H PRN Reason: PAIN Morphine Sulfate (Ms Contin(*)) 100 mg PO BID [facility] Pharmacy Consult (Vancomycin Per Pharmacy*) 1 note FOLLOW UP .VANC PER PHARMACY [facility]; Protocol Risperidone (Risperdal*) 2 mg PO QPM [facility] Tamsulosin HCl (Flomax Cap*) 0.8 mg PO DAILY [facility] Warfarin Sodium (Coumadin Tab(*)) 2 mg PO 1700 [facility]; Protocol Vital Signs - 8 hr 03/03/19 03/03/19 03/03/19 09:55 12:00 12:41 Temperature 97.9 F Pulse Rate 120 Respiratory 18 16 18 Rate Blood Pressure 148/88 (mmHg) O2 Sat by Pulse 98 Oximetry 03/03/19 15:37 Temperature 99.3 F Pulse Rate 113 Respiratory 16 Rate Blood Pressure 136/66 (mmHg) O2 Sat by Pulse 99 Oximetry Oxygen Devices in Use Now: None Appearance: NAD, laying in bed Ears/Nose/Mouth/Throat: Mucous Membranes Moist Respiratory: Symmetrical Chest Expansion and Respiratory Effort Extremities: - - 1-2+ bilateral LE edema. Weak DP pulse bilateral Skin: - - See skin note below Neurological: Alert and Oriented x 3 Nutrition: Taking PO's Result Diagrams: 03/03/19 06:28 03/03/19 06:28 Microbiology and Other Data: Microbiology 03/01/19 18:46 Aerobic Blood Culture - Preliminary Blood Venous No Growth Day 1 Anaerobic Blood Culture - Preliminary No Growth Day 1 03/01/19 18:46 Aerobic Blood Culture - Preliminary Blood Venous No Growth Day 1 Anaerobic Blood Culture - Preliminary No Growth Day 1 03/01/19 20:00 Urine Culture - Final Urine No Growth (<1,000 CFU/mL) 03/01/19 21:30 Nasal Screen MRSA (PCR) - Final Nasal Mrsa Not Detected Skin Deviation Note - Skin Deviation Findings Right heel - There is an open area, measures 5.5 cm x 5.5 cm x 0.1 cm. The wound bed is mostly red granulation tissue. There are 2 areas of black eschar, the lateral one measures 1.2 cm x 1 cm and the one most posterior measures 1.5 cm x 0.5 cm. There is also an area on the lateral foot seen near the top of the picture that measures 1.5 cm x 2 cm that is dark purplish discoloration, the skin is intact. Left heel - There is skin that is unroofing and a deep tissue injury to the heel , the total area measures 11 cm x 13 cm x 0.1 cm. Under the skin that is unroofing is an area of dry black eschar. There is a small amount of open tissue surrounding the eschar that is red granulation tissue. The heel is boggy. There is no drainage noted. The surrounding skin is intact. Buttocks - There is a superficial open area to the left buttocks, the area measures 1.2 cm x 0.5 cm x 0.1 cm. The wound bed is red granulation tissue. The surrounding skin is intact. Wound Problem/Plan Mr. Matias is a 63 yo male with PMH significant for stage 4 pancreatic cancer on chemotherapy, renal calculi, DM2, HTN, provoked DVT, and peripheral neuropathy; who presented to the hospital after and fall and was found to be hypotensive. He was recently hospitalized from 02/01/19 to 02/03/19 for a L1 compression fracture, weakness, and falls. He was again hospitalized from -02/25/19 for left LE cellulitis. 1. Bilateral heel deep tissue injuries. S/P right heel bedside debridement 2 weeks ago. Wound cultures from bilateral heels taken during last admission polymicrobial. Recommend washing bilateral LEs with soap and water. The right heel should have adaptic, followed by calcium alginate, and rolled gauze; change every other day. The left heel should have telfa or adaptic, followed by rolled gauze; change every other day. Should consider ABIs to evaluate LE circulation if patient is not pursuing palliative care. Consider referral to the wound clinic at discharge, the left heel will likely require debridement in the future. 2. Shearing injury to left buttock. Apply barrier cream to the buttocks. Frequent turning and repositioning. Use a lifting device for moving in bed. if not incontinent, do not use a "cotton picker operator pad" and use only a draw sheet. Consider checking a pre-albumin level to check nutritional status. 3. Possible left lower leg cellulitis. Management per primary medicine team. 4. DM2 with peripheral neuropathy. HgA1C was 10.7 in September of 2017. Consider rechecking a HgA1C. Maintain good glycemic control to allow for wound healing. 5. Diet. Consistent carbohydrate diet. 6. Code Status. Full Code. Is Patient a Wound Clinic Patient: No Status and Disposition: Disposition. Inpatient, disposition per primary medicine team. Counseling and/or Coordination of Care Minutes: 25 Points of Discussion: TIME SPENT: Time for this wound consultation was 25 minutes and 15 minutes was spent with the patient discussing recent events; removing old dressings; assessing, measuring, and photographing the wounds; redressing the wounds; and repositioning the patient. Attending: Leticia Pederson
[2019-03-03] MEDS: risperiDONE TAB* 2 MG PO SCH (17:10)
--- NOTE | 2019-03-03 21:44 | PN ---
Progress Note - Progress Note Date of Service: 03/03/19 SOAP: Subjective: [Anxious and adamant about getting home. He recognizes his physical decline and is interested in hospice services.] Objective: [ Vital Signs: Temp Pulse Resp BP Pulse Ox 97.8 F 109 18 118/55 98 03/03/19 19:38 03/03/19 19:38 03/03/19 20:00 03/03/19 19:38 03/03/19 19:38 Dextrose (Dextrose 50% Vial 50 Ml*) 25 ml IV PUSH .FOR FS < 65 - SS PRN PRN Reason: FS < 65 Last Admin: 03/02/19 17:25 Dose: 25 ml Dronabinol (Marinol Cap*) 2.5 mg PO TID PRN PRN Reason: nausea/appetite Escitalopram Oxalate (Lexapro *) 10 mg PO DAILY [facility] Last Admin: 03/03/19 09:55 Dose: 10 mg Cefepime HCl (Maxipime 1 Gm In Dextrose Duplex (*)) 1 gm in 50 mls @ 100 mls/ hr IV Q12H [facility] Last Admin: 03/03/19 09:55 Dose: 100 mls/hr Vancomycin HCl 1,000 mg/ (Sodium Chloride) 250 mls @ 166.667 mls/hr IVPB Q6H [facility] Last Admin: 03/03/19 16:40 Dose: 166.667 mls/hr Insulin Human Lispro (Humalog*) 0 units SUBCUT AC [facility]; Protocol Last Admin: 03/03/19 17:09 Dose: 2 units Morphine Sulfate (Morphine Oral.Soln 10 Mg*) 30 mg PO Q6H PRN PRN Reason: PAIN Last Admin: 03/03/19 17:09 Dose: 30 mg Morphine Sulfate (Ms Contin(*)) 100 mg PO BID [facility] Last Admin: 03/03/19 09:55 Dose: 100 mg Pharmacy Consult (Vancomycin Per Pharmacy*) 1 note FOLLOW UP .VANC PER PHARMACY [facility]; Protocol Risperidone (Risperdal*) 2 mg PO QPM [facility] Last Admin: 03/03/19 17:10 Dose: 2 mg Tamsulosin HCl (Flomax Cap*) 0.8 mg PO DAILY [facility] Last Admin: 03/03/19 09:55 Dose: 0.8 mg Warfarin Sodium (Coumadin Tab(*)) 2 mg PO 1700 [facility]; Protocol Laboratory Results - last 24 hr 03/03/19 03/03/19 03/03/19 06:28 06:28 06:28 WBC 5.5 RBC 3.25 L Hgb 9.8 L Hct 30 L MCV 91 MCH 30 MCHC 33 RDW 18 H Plt Count 142 L MPV 7.8 Neut % (Auto) 59.0 Lymph % (Auto) 25.4 Kershaw % (Auto) 11.8 Eos % (Auto) 2.7 Baso % (Auto) 1.1 Absolute Neuts (auto) 3.3 Absolute Lymphs (auto) 1.4 Absolute Monos (auto) 0.7 Absolute Eos (auto) 0.1 Absolute Basos (auto) 0.1 Absolute Nucleated RBC 0.0 Nucleated RBC % 0.1 INR (Anticoag Therapy) 4.77 H Sodium 139 Potassium 3.2 L Chloride 110 Carbon Dioxide 25 Anion Gap 4 BUN 8 Creatinine 0.43 L Est GFR ( Amer) 241.8 Est GFR (Non-Af Amer) 199.9 BUN/Creatinine Ratio 18.6 Glucose 86 POC Glucose (mg/dL) Calcium 7.8 L Total Bilirubin 0.50 AST 68 H ALT 56 H Alkaline Phosphatase 1175 H Total Protein 4.6 L Albumin 2.3 L Globulin 2.3 Albumin/Globulin Ratio 1.0 03/03/19 03/03/19 03/03/19 07:32 11:45 17:06 WBC RBC Hgb Hct MCV MCH MCHC RDW Plt Count MPV Neut % (Auto) Lymph % (Auto) Kershaw % (Auto) Eos % (Auto) Baso % (Auto) Absolute Neuts (auto) Absolute Lymphs (auto) Absolute Monos (auto) Absolute Eos (auto) Absolute Basos (auto) Absolute Nucleated RBC Nucleated RBC % INR (Anticoag Therapy) Sodium Potassium Chloride Carbon Dioxide Anion Gap BUN Creatinine Est GFR ( Amer) Est GFR (Non-Af Amer) BUN/Creatinine Ratio Glucose POC Glucose (mg/dL) 101 H 180 H 193 H Calcium Total Bilirubin AST ALT Alkaline Phosphatase Total Protein Albumin Globulin Albumin/Globulin Ratio Exam: Gen: chronically ill appears 63 yo male in NAD, accompanied by his son Resp: easy, regular respirations Skin: wounds not examined Psych: alert, tearful, appropriate in conversation but is unable to recognize the innate failure of his plan to return home without 24 hour care] Assessment: [This is a 63 yo male with metastatic pancreatic CA who has unfortunately had a significant decline in performance status over the last few months with multiple hospitalizations for fall and infection related complications. Each admission he has left the hospital AMA and returned after being found after a fall, confused and hypotensive. ] Plan: []1. AMS & hypotension: now resolved, likely related to narcotic use, but could be infection related although less likely - cont treating for cellulitis with IV abx 2. Metastatic pancreatic CA - sharp decline in performance status over the last several months and unable to return to therapy at this time - pt is agreeable to Hospice services at this time 3. Compression fractures: - TLSO brace previously recommended, he has not been using - PT & OT consult - home narcotics restarted, but at lower dose for now Dispo: pt strongly desires dc home even without plan for [address]. He is willing to leave AMA, which would be his 3rd AMA dc in the last 2 months. Requested psychiatric evaluation to assess capacity to leave AMA as I do not believe he understands the implications of leaving the hospital without modifying his prior plan for home care. Requested palliative consult and consideration for home hospice. At this time, Dr Neal, believes he retains capacity to leave the hospital AMA but he is unable to do so without physical assistance from a family member or friend. At this time, will continue to coordinate with CM/SW to ensure a safe discharge before agreeing to dc home.
[2019-03-04] MEDS: Morphine ORAL.SOLN 10 mg* 2 MG/ML UDC 5 ml PO PRN ×2 (02:20→08:50)
[2019-03-04] MEDS: Vancomycin(*) 1,000 MG in NS 0.9% 250 ML* 250 ML IVPB SCH ×2 (02:24→09:46)
[2019-03-04] MEDS: Insulin LISPRO* 1 UNITS UNIT SUBCUT SCH ×2 (08:42→14:49)
[2019-03-04] MEDS: Tamsulosin CAP* 0.4 MG PO SCH (08:52)
[2019-03-04] MEDS: Cefepime 1 GM in Dextrose(*) 1 GM/50 ML BAG IV SCH (08:52)
[2019-03-04] MEDS: Escitalopram * 10 MG TAB PO SCH (09:46)
[2019-03-04] MEDS: MORPHINE 100 MG PO SCH (09:48)
[2019-03-04 13:37] VITALS: BP 140/66
[2019-03-04] MEDS ORDERED: Warfarin TAB(*) 2 MG PO SCH (17:00)
[2019-03-05] MEDS ORDERED: Vancomycin Trough Check NOTE FOLLOW UP ONE (08:30)
--- NOTE | 2019-04-15 23:06 | DS ---
DISCHARGE SUMMARY: DATE OF ADMISSION: 03/01/19 DATE OF DISCHARGE: 03/04/19 DISCHARGE DIAGNOSES: 1. Widely metastatic pancreatic cancer. 2. Altered mental status. 3. Hypotension. 4. Severe pain from compression fractures. 5. Multiple falls. 6. Multiple recent infections in the legs. HISTORY AND HOSPITAL COURSE: Mr. Matias is a 63-year-old male with a history of pancreatic cancer dating back to 2018. He had been on chemotherapy until fairly recently and then has had multiple complications and multiple admissions over the past several months. He has fallen on multiple occasions and has been essentially unable to care for at home by his sons. He has had had a significant edema and infections in the lower extremities along with history of type 2 diabetes mellitus and DVTs in the leg. He is brought in at this time when found on the floor essentially unresponsive. He was hypotensive on the way to the emergency room although initially improved somewhat with IV fluids. He reported an allergy to NALTREXONE, so this was not given despite his high doses of narcotics which would be used. He did have significant cellulitis along with lower extremity edema and was seen in consultation by the wound clinic for this. He was initially treated with vancomycin and cefepime for the cellulitis. He was seen in consultation during the hospitalization by Psychiatry who felt that he had capacity to make his own decisions. He was felt to have an excellent grasp of his diagnosis and prognosis. It was apparent to the medical team, however, that he was not acting rationally in regarding to making these decisions. He was seen in consultation by Surgery in regard to the significant wounds. He and his son reported a number items to both the nursing staff, to our service and to the hospice service that he had a long-term care insurance in place and that he had arranged to have extra help at home, which did not appear to be true or viable options. It was felt that he was not safe to be discharged to home and his request to sign against medical advice discharge for this reason. At the time of discharge, he was, however, agreeable to hospice services, which were to start shortly after discharge. Antibiotics were discontinued as they were not improving the overall situation and the infections appear to be more of a long-term issue. Condition at the time of discharge was poor. Discharge was the patient to home with the son. MEDICATIONS AT THE TIME OF DISCHARGE: Included: 1. Coumadin 2 mg daily. 2. Famotidine 40 mg daily. 3. Risperdal 2 mg daily. 4. Metoprolol 100 mg daily. 5. Glipizide 5 mg daily. 6. Finasteride 5 mg daily. 7. Tamsulosin 0.8 mg daily. 8. Insulin 30 units subcutaneously. 9. Lantus daily. 10. Marinol 2.5 mg t.i.d. p.r.n. 11. Neurontin 600 mg t.i.d. 12. Morphine 30 mg every 5 to 6 hours p.r.n. pain. 13. Long acting MS Contin 100 mg t.i.d. 14. Lexapro 10 mg daily. 15. Lisinopril 40 mg daily. 16. Cefdinir oral antibiotics 300 mg b.i.d. 17. Medical marijuana was continued to be used. [id number]/[facility] #: [id number] MTDD
== END 2019-03-04 14:45 | disposition left against medical advice (07) | DRG 207 ==
LOC: ED 17:49 → ICU 20:36 → MED 03-02 16:22
PROVIDERS: ADMIT Internal Medicine; ATTEND Internal Medicine Hematology & Oncology
DX: I95.89 Other hypotension (principal); C78.7 Secondary malignant neoplasm of liver and intrahepatic bile duct; C25.9 Malignant neoplasm of pancreas, unspecified; L03.116 Cellulitis of left lower limb; E11.42 Type 2 diabetes mellitus with diabetic polyneuropathy; R41.82 Altered mental status, unspecified; I10 Essential (primary) hypertension; T40.2X1A Poisoning by other opioids, accidental (unintentional), initial encounter; F17.210 Nicotine dependence, cigarettes, uncomplicated; S91.311A Laceration without foreign body, right foot, initial encounter; S31.821A Laceration without foreign body of left buttock, initial encounter; M48.56XD Collapsed vertebra, not elsewhere classified, lumbar region, subsequent encounter for fracture with routine healing; S91.312A Laceration without foreign body, left foot, initial encounter; X58.XXXA Exposure to other specified factors, initial encounter; W19.XXXA Unspecified fall, initial encounter; Y92.009 Unspecified place in unspecified non-institutional (private) residence as the place of occurrence of the external cause; Z79.4 Long term (current) use of insulin; Z86.718 Personal history of other venous thrombosis and embolism; Z79.01 Long term (current) use of anticoagulants; Z79.891 Long term (current) use of opiate analgesic; Z79.899 Other long term (current) drug therapy; Z91.040 Latex allergy status; Z88.2 Allergy status to sulfonamides; Z88.8 Allergy status to other drugs, medicaments and biological substances; Z91.018 Allergy to other foods; Z91.048 Other nonmedicinal substance allergy status; Z80.0 Family history of malignant neoplasm of digestive organs; Z91.81 History of falling
CPT/HCPCS: 36415; 70450; 71045; 80048; 80053; 80202; 81003; 81015; 82140; 83605; 84484; 85025; 85610; 87040; 87086; 87641; 93005; 99232; 99233; 99285; A9270-GY; J0692; J1644; J2543; J3370

== ENCOUNTER 2019-03-22 21:37 | Emergency (ER) | payer MEDICAID, OTHER ==
--- NOTE | 2019-03-22 22:04 | ED ---
Lower Extremity - HPI Summary HPI Summary: Patient presents from home with bilateral heel ulcers, with maggots noticed in left heel ulcer. Patient is in end-stage pancreatic cancer. Caregiver is son who states he changes dressings on heel ulcers daily. Patient states bilateral heel ulcers have been present for a year and a half. Patient currently taking Cefdinir for wound. Patient has home hospice nurse that comes once a week to evaluate patient. Patient followed by Dr. Chambers for oncology. Patient denies any other acute symptoms. - History of Current Complaint Chief Complaint: EDGeneral Stated Complaint: OPEN WOUNDS ON FEET PER EMS Time Seen by Provider: 03/22/19 21:43 Hx Obtained From: Patient Onset/Duration: Weeks Severity Currently: None Pain Intensity: 0 Pain Scale Used: 0-10 Numeric Associated Signs And Symptoms: Positive: Other Aggravating Factor(s): Nothing - Allergies/Home Medications Allergies/Adverse Reactions: Allergies Allergy/AdvReac Type Severity Reaction Status Date / Time carbamazepine Allergy Severe Swelling Verified 03/22/19 21:47 Of Face,Lips,& Throat sunflower oil Allergy Severe Swelling Verified 03/22/19 21:47 Of Face,Lips,& Throat latex Allergy Intermediate Rash Verified 03/22/19 21:47 Adhesive Tape Allergy Rash Verified 03/22/19 21:47 naltrexone [From Embeda] Allergy Swelling Verified 03/22/19 21:47 Sulfa (Sulfonamide AdvReac Mild See Comment Verified 03/22/19 21:47 Antibiotics) Home Medications: Home Medications Benazepril HCl [Lotensin-] 20 mg PO DAILY 03/22/19 [History Confirmed 03/22/19] Insulin Glargine,Hum.rec.anlog [Lantus] 30 units SUBCUT DAILY 03/22/19 [History Confirmed 03/22/19] PMH/Surg Hx/FS Hx/Imm Hx Endocrine/Hematology History: Reports: Hx Anticoagulant Therapy - coumadin, Hx Diabetes, Hx Anemia - warfarin therapy Cardiovascular History: Reports: Hx Deep Vein Thrombosis, Hx Hypercholesterolemia, Hx Hypertension, Other Cardiovascular Problems/Disorders - ON COUMADIN Denies: Hx Pacemaker/ICD Respiratory History: Reports: Hx Sleep Apnea - not diagnosed Denies: Hx Chronic Obstructive Pulmonary Disease (COPD) GI History: Reports: Hx Cirrhosis, Hx Gastroesophageal Reflux Disease, Other GI Disorders - PANCREATIC CANCER History: Reports: Hx Kidney Stones - several times, last episode approx 3 yrs ago?, Other Problems/Disorders - HX OF STONES Denies: Hx Renal Disease Musculoskeletal History: Reports: Hx Arthritis - neck, arms, hands, legs, Hx Back Problems - chronic bilateral foraminal narrowing, DDD, OA, s/p laminectomy , Other Musculoskeletal History - Chronic Pain Sensory History: Reports: Hx Cataracts - mild bi-lat Denies: Hx Contacts or Glasses, Hx Glaucoma, Hx Hearing Aid Opthamlomology History: Reports: Hx Cataracts - mild bi-lat Denies: Hx Contacts or Glasses, Hx Glaucoma Neurological History: Reports: Hx Headaches, Hx Migraine - once a month, uses relaxation techniques, medication, Hx Seizures - 10 years ago, no meds now, Other Neuro Impairments/Disorders - pt is not taking medication for anxiety/ depression Denies: Hx Dementia Psychiatric History: Reports: Hx Anxiety, Hx Depression Denies: Hx Panic Disorder - Cancer History Cancer Type, Location and Year: October 2017 - dx w/ pancreatic cancer w/ liver mets Hx Chemotherapy: Yes - started recently - Surgical History Surgery Procedure, Year, and Place: Cholecystectomy; Bilateral Carpal Tunnel PT NEEDS TO BE SCHEDULED AT [facility]. BLOOD CLOT IN LEFT LEG NEEDS TO HAVE PORT ACCESSED. LSP Back and CSP surgery [facility]. 2018 dental extraction. october 2017 - liver and pancreas biopsies Hx Anesthesia Reactions: No Infectious Disease History: No Infectious Disease History: Reports: Hx Hepatitis - hep c positive Denies: Traveled Outside the [place] in Last 30 Days - Family History Known Family History: Positive: Hypertension, Other - FMHX OF PANCREATIC CANCER , MOTHER - Social History Alcohol Use: None Hx Substance Use: No Substance Use Type: Reports: Marijuana Substance Use Comment - Amount & Last Used: prescribed Hx Tobacco Use: Yes Smoking Status (MU): Current Some Day Smoker Type: Cigarettes Amount Used/How Often: 10 cig per day Have You Smoked in the Last Year: Yes Review of Systems Constitutional: Negative Eyes: Negative ENT: Negative Cardiovascular: Negative Respiratory: Negative Gastrointestinal: Negative Genitourinary: Negative Musculoskeletal: Negative Skin: Other Neurological: Negative Psychological: Normal All Other Systems Reviewed And Are Negative: Yes Physical Exam - Summary Physical Exam Summary: Ulcer on right heel appears clean, dry and intact. Ulcer on left heel does have maggots present, there appears to be some new ulceration surrounding long goods drier tissue of chronic ulcer, and foul odor. No purulent drainage noted. PMS intact distally. Full range of motion of foot and ankle. Triage Information Reviewed: Yes Vital Signs On Initial Exam: Initial Vitals Temp Pulse Resp BP Pulse Ox 97.3 F 77 18 157/102 99 03/22/19 21:41 03/22/19 21:41 03/22/19 21:41 03/22/19 21:41 03/22/19 21:41 Vital Signs Reviewed: Yes Appearance: Positive: Well-Appearing Skin: Positive: Warm Head/Face: Positive: Normal Head/Face Inspection Eyes: Positive: Normal Neck: Positive: Supple Respiratory/Lung Sounds: Positive: Clear to Auscultation Cardiovascular: Positive: Normal Abdomen Description: Positive: Nontender Musculoskeletal: Positive: Normal Neurological: Positive: Normal Psychiatric: Positive: Normal AVPU Assessment: Alert - Rosetta Coma Scale Best Eye Response: 4 - Spontaneous Best Motor Response: 6 - Obeys Commands Best Verbal Response: 5 - Oriented Coma Scale Total: 15 Diagnostics - Vital Signs Vital Signs Temp Pulse Resp BP Pulse Ox 03/22/19 22:00 58 97 03/22/19 21:56 57 127/67 98 03/22/19 21:41 97.3 F 77 18 157/102 99 - Laboratory Result Diagrams: 03/22/19 22:32 03/22/19 22:32 Lab Statement: Any lab studies that have been ordered have been reviewed, and results considered in the medical decision making process. Lower Extremity Course/Dx - Course Course Of Treatment: Patient presents from home with bilateral heel ulcers, with maggots noticed in left heel ulcer. Patient is in end-stage pancreatic cancer. Caregiver is son who states he changes dressings on heel ulcers daily. Patient states bilateral heel ulcers have been present for a year and a half. Patient currently taking Cefdinir for wound. Patient has home hospice nurse that comes once a week to evaluate patient. Patient followed by Dr. Chambers for oncology. Patient denies any other acute symptoms. Ulcers cleaned. Vital signs within normal limits. Labs the patient baseline. EKG sinus bradycardia with a rate of 50. Prior EKG 03/01/19 sinus rhythm with heart rate of 71. Other than heart rate no change in EKG. Potassium 3.3. Potassium 40 MEQ administered.Indwelling urinary catheter placed yesterday. UA positive for pyuria. History of same. Last culture in February 2019 is negative. No urinary symptoms. Discussed patient with Dr. Chambers oncology who recommended discharge as patient frequently signs out AMA. Patient agrees he does not want stay. Clindamycin 300 mg IV administered here in the ED. Change to Rx for clindamycin by mouth instead of cefdinir. Follow-up with home hospice nurse. Discussed with patient and patient's son who approved the plan. - Diagnoses Provider Diagnoses: Foot ulcer, left, Right foot ulcer, Hypokalemia, Wound infection Discharge ED - Sign-Out/Discharge Documenting (check all that apply): Patient Departure Patient Received Moderate/Deep Sedation with Procedure: No - Discharge Plan Condition: Stable Disposition: HOME Prescriptions: Clindamycin HCl 300 mg PO TID 7 Days #21 capsule Patient Education Materials: Wound Infection (ED) Referrals: Michael Hurst MD [Primary Care Provider] - Additional Instructions: Take antibiotics as directed. Keep wound clean, dry and dressed. Follow-up with hospice nurse. Return to the ED for any new or worsening symptoms. - Billing Disposition and Condition Condition: STABLE Disposition: Home
[2019-03-22 22:49] LABS: ABS Eosinophils 0.1 10^3/ul (0-0.6); ABS Lymphocytes 1.2 10^3/ul (1.0-4.8); ABS Monocytes 0.7 10^3/ul (0-0.8); ABS Neutrophils 4.5 10^3/ul (1.5-7.7); Eosinophil % 1.5 %; Hematocrit 31 % (42-52); Hemoglobin 10.2 g/dL (14.0-18.0); Lymphocyte % 18.8 %; Mean Corpuscular HGB Conc 33 g/dL (31-36); Mean Corpuscular Hemoglobin 30 pg (27-31); Mean Corpuscular Volume 92 fL (80-94); Mean Platelet Volume 8.3 fL (7.4-10.4); Platelet Count 122 10^3/uL (150-450); Red Blood Count 3.41 10^6 /uL (4.18-5.48); Red Cell Distribution Width 18 % (10-15); White Blood Count 6.6 10^3/uL (3.5-10.8)
[2019-03-22 22:57] LABS: Urine Appearance Cloudy; Urine Bacteria Absent (Absent); Urine Bilirubin Negative (Negative); Urine Blood 3+ (Negative); Urine Color Yellow; Urine Glucose Negative (Negative); Urine Ketones Negative (Negative); Urine Nitrite Negative (Negative); Urine Protein 2+(100 mg/dL) (Negative); Urine Red Blood Cell 3+(>10/hpf) (Absent); Urine Specific Gravity 1.018 (1.010-1.030); Urine Urobilinogen Negative (Negative); Urine White Blood Cell 3+(>20/hpf) (Absent)
[2019-03-22 23:04] LABS: ALT 38 U/L (7-52); AST 43 U/L (13-39); Albumin 2.2 g/dL (3.2-5.2); Albumin/Globulin Ratio 1.1 (1-3); Alkaline Phosphatase 1247 U/L (34-104); BUN/Creatinine Ratio 30.4 (8-20); Blood Urea Nitrogen 14 mg/dL (6-24); C Reactive Protein 41.96 mg/L (<8.01); CO2 Carbon Dioxide 35 mmol/L (22-32); Calcium 7.7 mg/dL (8.6-10.3); Chloride 106 mmol/L (101-111); EGFR African American 223.7 (>60); EGFR Non-African American 184.9 (>60); Glucose 120 mg/dL (70-100); Potassium 3.3 mmol/L (3.5-5.0); Sodium 141 mmol/L (135-145); Total Protein 4.2 g/dL (6.4-8.9)
[2019-03-22 23:06] LABS: Troponin I 0.03 ng/mL (<0.04)
[2019-03-22] MEDS ORDERED: Potassium Chlor TAB* 20 MEQ TAB.ER PO ONE (23:09)
[2019-03-22] MEDS ORDERED: Clindamycin VIAL(*) 450 MG in NS 0.9% 50 ML* 50 ML IVPB ONE (23:11)
[2019-03-22] MEDS ORDERED: Clindamycin 300 MG IVPREMIX* 300 MG/50 ML SDV IVPB ONE (23:30)
[2019-03-23 00:20] VITALS: BP 106/69
== END 2019-03-23 00:44 | disposition home or self-care (01) ==
LOC: ED 21:37
DX: E11.621 Type 2 diabetes mellitus with foot ulcer (principal); L97.429 Non-pressure chronic ulcer of left heel and midfoot with unspecified severity; L97.419 Non-pressure chronic ulcer of right heel and midfoot with unspecified severity; Z79.4 Long term (current) use of insulin; E23.2 Diabetes insipidus; C25.9 Malignant neoplasm of pancreas, unspecified; C78.7 Secondary malignant neoplasm of liver and intrahepatic bile duct; R00.1 Bradycardia, unspecified; Z86.718 Personal history of other venous thrombosis and embolism; Z79.01 Long term (current) use of anticoagulants; I10 Essential (primary) hypertension; Z91.040 Latex allergy status; Z88.2 Allergy status to sulfonamides; Z88.8 Allergy status to other drugs, medicaments and biological substances; Z91.048 Other nonmedicinal substance allergy status; Z72.0 Tobacco use
CPT/HCPCS: 36415; 80053; 81003; 81015; 83605; 84484; 85025; 86140; 87040; 87086; 93005; 96365; 96375; 99284; A9270-GY; J1642